=== PATIENT | female | born 1970 | race Caucasian/White ===

== ENCOUNTER 2018-02-19 23:54 | Emergency (ER) | payer OTHER, SELFPAY ==
[2018-02-19 23:55] VITALS: BP 145/40; PULSE 105; RESP 22; TEMP 36.5; O2SAT 99; BMI 36.8
--- NOTE | 2018-02-20 00:43 | ED.DCSUM_ITS ---
- ER Visit Summary Date of Service: 02/20/18 Chief Complaint: [] Bite History of Present Illness: The patient is a 47 F think she was bit by a bug a couple days ago. She has redness soreness and swelling her right christianity. She developed lymph node swelling in front of her ear today. She has been using Benadryl with no relief. No previous abscesses or infection. She also states she has chronic asthma that has been acting up using her inhaler today. Physical Examination: Vital signs reviewed General: Well-nourished well-developed Head: Normocephalic atraumatic Eyes: Pupils equal round and reactive to light extraocular movements intact ENT: TMs clear no hemotympanum no trauma Neck: Nontender full range of motion Cardiovascular: Regular rate rhythm no murmurs normal S1-S2 Respiratory: No distress very wheezes bilateral Abdomen: Soft nontender nondistended normal bowel sounds no masses Back: Nontender no CVA tenderness Extremities: Nontender active range of motion ?4 extremities no trauma Skin: Zoroastrian has a 1 x 1 cm dime size cellulitis with a central pustule. Neuro alert oriented cranial nerves II through XII intact normal strength sensation reflexes Test Results: [] Emergency Department Course and Treatment: [] The pustule was broken open easily. Given oral Bactrim is unclear if she got bit by something. This should cover however. Also given a breathing treatment for her asthma. I will give Her prescription for outpatient prednisone but she will start after her infection gets better Treatment Plan: [] Disposition: [] Impression: [] Right-sided facial wound with infection cellulitis Asthma exacerbation This note was generated with [employer] dictation software. It may contain incorrect words, spelling, and punctuation that were not noted in review of the chart prior to signing ED Disposition - Plan for ED Patient: Chief Complaint: Bite Referrals: Quentin Jasso MD [Primary Care Provider] -
[2018-02-20] MEDS: Ipratropium/Albuterol Sulfate 3 ML AMPUL.NEB INHALATION (00:51)
[2018-02-20 00:52] VITALS: PULSE 82; RESP 18; O2SAT 94
[2018-02-20] MEDS: Smz/Tmp Ds Tablet 1 TABLET PO (00:55)
--- NOTE | 2018-02-20 01:19 | ED.DEP ---
ED Disposition - Plan for ED Patient: Disposition: Home or Assisted Living Chief Complaint: Bite Instructions: ED Bite Sting Insect Gen Allergic React, Understanding Asthma Prescriptions: Prednisone [Deltasone] 40 mg PO DAILY #10 tab Smz/Tmp Ds [Bactrim Ds] 1 tab PO BID #14 tab Referrals: Quentin Jasso MD [Primary Care Provider] -
== END 2018-02-20 01:31 | disposition home or self-care (01) ==
PROVIDERS: Emergency Provider Emergency Medicine; Family Provider Family Medicine; PCP Family Medicine
DX: S00.06XA Insect bite (nonvenomous) of scalp, initial encounter (principal); W57.XXXA Bitten or stung by nonvenomous insect and other nonvenomous arthropods, initial encounter; Y93.9 Activity, unspecified; Y92.9 Unspecified place or not applicable; L03.818 Cellulitis of other sites; B96.89 Other specified bacterial agents as the cause of diseases classified elsewhere; Z72.0 Tobacco use
CPT/HCPCS: 94640; 99283

== ENCOUNTER 2018-12-30 19:35 | Emergency (ER) | payer SELFPAY ==
[2018-12-30 19:36] VITALS: BP 128/82; PULSE 84; RESP 17; TEMP 36.6; O2SAT 97; BMI 31.9
--- NOTE | 2018-12-30 20:31 | ED.DCSUM_ITS ---
- ER Visit Summary Date of Service: 12/30/18 Chief Complaint: Nausea, vomiting and diarrhea History of Present Illness: The patient is a 48 F who presents for nausea and vomiting since yesterday and now diarrhea today. Patient states she is felt very fatigued and weak. She has had multiple episodes of vomiting since yesterday. Today she began having watery stool. She has mild chest discomfort associated with it. Last oral intake was potato chips today. Patient denies fever, urinary symptoms, or other complaints. She does have an abscess on her right breast that she would like evaluated and states it is been draining green pus. Physical Examination: Vital signs: afebrile, hemodynamically stable, no hypoxia on room air General: well nourished, well developed, in no distress Skin: warm, dry, no rash, no pallor, fluctuant purulent ovoid plaque on the right breast just lateral of midline, no involvement of the areola, surrounding erythema and induration HEENT: normocephalic and atraumatic; PERRL, EOMI, moist mucous membranes Cardiovascular: regular rate and rhythm without murmurs, no peripheral edema, 2+ pulses all distal extremities Respiratory: No increased work of breathing, lungs are clear to auscultation bilaterally, no rales, rhonchi or wheezing Abdominal: Abdomen is soft, nontender with normoactive bowel sounds, no guarding or rebound, no masses MSK: Moves all extremities, no deformities, normal strength Neuro: Awake and alert, oriented ?4. No facial droop, sensation and motor function intact and symmetric Test Results: Abnormal Lab Results 12/30/18 12/30/18 12/30/18 20:41 20:41 21:30 WBC 8.3 RBC 4.32 Hgb 14.1 Hct 42.6 MCV 98.6 MCH 32.6 H MCHC 33.1 RDW 12.7 RDW Differential 45.9 H Plt Count 297 MPV 10.6 Immature Gran % (Auto) 0.100 Neut % (Auto) 53.4 Lymph % (Auto) 35.3 [place] % (Auto) 6.6 Eos % (Auto) 4.1 Baso % (Auto) 0.5 Absolute Neuts (auto) 4.4 Absolute Lymphs (auto) 2.93 Total Counted Not Reportable Sodium 141 Potassium 3.4 L Chloride 110 H Carbon Dioxide 26.0 Anion Gap 5 BUN 17 Creatinine 0.72 Estim Creat Clear Calc 94.94 Est GFR (MDRD) Af Amer 113 Est GFR (MDRD) Non-Af 93 BUN/Creatinine Ratio 23.7 H Glucose 98 Calcium 8.2 L Total Bilirubin 0.30 AST 18 ALT 41 Alkaline Phosphatase 105 Total Protein 6.3 L Albumin 3.1 L Globulin 3.2 Albumin/Globulin Ratio 1.0 Lipase 96 Urine Color Yellow Urine Clarity Sl. Cloudy Urine pH 8.0 Ur Specific [place] 1.015 Urine Protein Negative Urine Glucose (UA) Normal Urine Ketones Negative Urine Occult Blood Negative Urine Nitrite Negative Urine Bilirubin Negative Urine Urobilinogen Normal Ur Leukocyte Esterase 25 H Urine RBC 0 SEEN Urine WBC 0-5 SEEN Ur Squamous Epith Cells 0-5 SEEN Amorphous Sediment 1+ PHOS Urine Bacteria 0 SEEN Urine Mucus 1+ Urine Test 12/30/18 22:30 WBC RBC Hgb Hct MCV MCH MCHC RDW RDW Differential Plt Count MPV Immature Gran % (Auto) Neut % (Auto) Lymph % (Auto) [place] % (Auto) Eos % (Auto) Baso % (Auto) Absolute Neuts (auto) Absolute Lymphs (auto) Total Counted Sodium Potassium Chloride Carbon Dioxide Anion Gap BUN Creatinine Estim Creat Clear Calc Est GFR (MDRD) Af Amer Est GFR (MDRD) Non-Af BUN/Creatinine Ratio Glucose Calcium Total Bilirubin AST ALT Alkaline Phosphatase Total Protein Albumin Globulin Albumin/Globulin Ratio Lipase Urine Color Urine Clarity Urine pH Ur Specific [place] Urine Protein Urine Glucose (UA) Urine Ketones Urine Occult Blood Urine Nitrite Urine Bilirubin Urine Urobilinogen Ur Leukocyte Esterase Urine RBC Urine WBC Ur Squamous Epith Cells Amorphous Sediment Urine Bacteria Urine Mucus Urine Test Negative Clinical Impression(s) from Imaging Studies Abdomen/Pelvis CT 12/30/18 22:14 IMPRESSION: 1. Contracted gallbladder. 2. An IUD is seen in the uterus. 3. The appendix appears normal. 4. There is no evidence of free intra-abdominal or intrapelvic air, fluid, or inflammatory process. Electronically Signed: Remi Encarnacion MD at 23:51 EDT , Service support , Medications Given Discontinued Medications Clindamycin HCl (Cleocin) 450 mg PO X1 ONE Stop: 12/31/18 00:04 Last Admin: 12/31/18 00:10 Dose: 450 mg Sodium Chloride () 1,000 mls @ 1,000 mls/hr IV .Q1H ONE Stop: 12/30/18 21:27 Last Admin: 12/30/18 20:44 Dose: 1,000 mls/hr Ketorolac Tromethamine (Toradol) 15 mg IV X1 ONE Stop: 12/30/18 20:29 Last Admin: 12/30/18 20:44 Dose: 15 mg Lidocaine HCl (Lidocaine Hcl 1% Mdv) 0 ml INFILT X1 ONE Stop: 12/30/18 20:30 Metoclopramide HCl (Reglan) 10 mg IV X1 ONE Stop: 12/30/18 22:15 Last Admin: 12/30/18 22:28 Dose: 10 mg Ondansetron HCl (Zofran) 4 mg IV X1 ONE Stop: 12/30/18 20:29 Last Admin: 12/30/18 20:44 Dose: 4 mg Emergency Department Course and Treatment: Patient was given IV fluids, Zofran and Toradol for symptom medic relief. Basic labs were performed to look for any significant electrolyte derangements or dehydration. Labs were unremarkable for any leukocytosis, renal derangement, hepatic derangements or urine infection. Patient was reevaluated and was still complaining of significant discomfort and had abdominal tenderness, thus a CT of the abdomen pelvis was performed that showed no acute process. Patient was feeling better after further observation. An incision and drainage was performed of the right breast abscess. The area was cleansed with Betadine. It was infiltrated with 2 cc of 1% lidocaine. Good anesthesia was obtained. An 11 blade was used to make a stab incision through the area of maximal fluctuance. The escharotic scab over the fluctuant cavity was also removed. Thick pus was drained and loculations were broken up with curved hemostats. Patient tolerated the procedure well. Because she has the surrounding cellulitic changes, she was started on clindamycin for coverage. Patient was also given prescription for Diflucan in case she develops a yeast infection, as she is sensitive to antibiotics. Patient was discharged home in improved condition. Treatment Plan: [] Disposition: [] Impression: Acute gastroenteritis, abscess with cellulitis of the right breast, incision and drainage This note was generated with [employer] software. It may contain incorrect words, spelling, and punctuation that were not noted in review of the chart prior to signing ED Disposition - Plan for ED Patient: Disposition: Home or Assisted Living Instructions: ED Abscess IandD, ED Food Poison Or Gastroenteritis Prescriptions: Fluconazole [Diflucan] 150 mg PO X1 #2 tab RX: Clindamycin [Cleocin] 450 mg PO TID #90 cap Referrals: Quentin Jasso MD [Primary Care Provider] - 3-5 Days if not improving Additional Instructions: Take your Zofran as needed for nausea. Please drink plenty of fluids to stay hydrated. For your skin abscess and infection, please take the antibiotic 3 times daily as prescribed. You may use the Diflucan if you develop a yeast infection. Please follow-up with your doctor for another evaluation if you continue to have the abdominal pain, vomiting and diarrhea. Please also follow-up with your doctor for reevaluation of your recurring skin abscesses. If you have any worsening of your condition or any new concerning symptoms, please return immediately to the emergency department for another evaluation.
[2018-12-30] MEDS: Ondansetron 4 MG/2 ML Vial IV (20:44)
[2018-12-30] MEDS: Ketorolac 30 MG/ML Syringe 15 MG IV (20:44)
[2018-12-30] MEDS: 0.9% Normal Saline 1,000 ML 1000 ML IV (20:44)
[2018-12-30 20:56] LABS: Absolute Lymphocyte Count 2.93 X10^3/ul (0.83-4.51); Absolute Neutrophil Count 4.4 X10^3/uL (2.0-7.7); Basophil# 0.04 X10^3/uL; Basophil% 0.5 % (0-1); Eosinophil# 0.34 X10^3/uL; Eosinophils% 4.1 % (0-5); Hematocrit 42.6 % (37-47); Hemoglobin 14.1 g/dl (12.0-15.0); Lymphocyte # 2.93 X10^3/ul (4.0); Lymphocyte % 35.3 % (19-41); Mean Corp Hgb Conc 33.1 g/gl (32-36); Mean Corpuscular Hgb 32.6 pg (27.0-32.0); Mean Corpuscular Volume 98.6 fL (81-99); Mean Platelet Vol. 10.6 fl (6.2-12.0); Monocyte# 0.55 X10^3/uL; Monocyte% 6.6 % (0-10); Neutrophil # 4.44 X10^3/uL (2.7-7.7); Neutrophil % 53.4 % (47-70); Platelet Count 297 K/mm3 (150-450); RBC Distribution Width CV 12.7 % (11.6-14.6); RBC Distribution Width SD 45.9 fl (35.1-43.9); Red Blood Count 4.32 M/mm3 (4.2-5.4); White Blood Count 8.3 K/mm3 (4.4-11.0)
[2018-12-30 21:05] LABS: POSITIVE COUNT NO; POSITIVE DIFFERENTIAL NO; POSITIVE MORPHOLOGY NO
[2018-12-30 21:14] LABS: AST(SGOT) 18 U/L (15-37); Alanine Aminotransfer ALT/SGPT 41 U/L (13-56); Albumin, Serum 3.1 g/dL (3.2-5.0); Alkaline Phosphatase 105 U/L (45-117); Anion Gap 5 (5-15); BUN 17 mg/dL (7-18); BUN/Creat Ratio 23.7 RATIO (10-20); Calcium,Total 8.2 mg/dL (8.5-10.1); Chloride 110 mmol/L (98-107); Creatinine, Serum 0.72 mg/dL (0.55-1.02); EST Glomerular Filtration Rate 93 mL/min (>60); Est Glom Filt Rate - Afr Amer 113 mL/min (>60); Estimated Creatinine Clearance 94.94 ml/min; Globulin 3.2 g/dL (2.2-4.2); Glucose 98 mg/dL (74-106); Lipase 96 U/L (73-393); Potassium 3.4 mmol/L (3.5-5.1); Protein, Total 6.3 g/dL (6.4-8.2); Sodium Level 141 mmol/L (136-145)
[2018-12-30 21:38] LABS: Bacteria 0 SEEN /hpf (None Seen); Red Blood Cells-Urine 0 SEEN /hpf (0-5)
[2018-12-30 21:45] LABS: Color, Urine Yellow (Yellow); Glucose, Dipstick Normal (Normal); Ketone-Dipstick Negative (Negative); Leukocyte Esterase-Dipstick 25 /ul (Negative); Nitrite-Dipstick Negative (Negative); Occult Blood-Urine Negative /ul (Negative); Protein-Dipstick Negative (Negative); Specific Gravity, Urine 1.015 (1.002-1.030); Urine Bilirubin Dipstick Negative (Negative); Urine Clarity Sl. Cloudy (Clear); Urine Urobilinogen Normal (Normal)
[2018-12-30 21:51] LABS: Amorphous Sediment 1+ PHOS; Mucous, Urine 1+ /hpf (<or=2+); Squamous Epithelial Cells - UA 0-5 SEEN /hpf (5-10); White Blood Cells 0-5 SEEN /hpf (0-5)
--- NOTE | 2018-12-30 22:14 | CT_ITS ---
STUDY: CT ABDOMEN AND PELVIS WITH CONTRAST REASON FOR EXAM: Female, 48 years old. Nausea vomiting and diarrhea RADIATION DOSAGE (If Supplied By Facility): CTDIvol = ( 23.38 ) mGy, DLP = ( 1364.15 ) mGycm TECHNIQUE: Transaxial images were obtained from the dome of the diaphragm to the symphysis pubis without oral contrast. 100ML IV Isovue 300 was administered. Sagittal and coronal images were reconstructed. Individualized dose optimization techniques were used for this CT. COMPARISON: Prior study of 09/22/2015 FINDINGS: The visualized lung bases are unremarkable. The visualized portions of the heart are within normal limits. Normal liver. The gallbladder is contracted. Normal spleen. Normal pancreas. Normal bilateral adrenal glands. Normal right kidney. Normal left kidney. Normal visualized stomach. Normal small intestine. Normal colon. The appendix is visualized and appears normal. There are several small calcified plaques of the abdominal aorta. Normal inferior vena cava. Normal retroperitoneum. Normal urinary bladder. An IUD is seen in the uterus. The adnexal structures are unremarkable. Normal abdominal wall. There is diffuse endplate spondylosis of the visualized lower thoracic spine. CT/Abdomen/Pelvis W IV Cont ONLY IMPRESSION: 1. Contracted gallbladder. 2. An IUD is seen in the uterus. 3. The appendix appears normal. 4. There is no evidence of free intra-abdominal or intrapelvic air, fluid, or inflammatory process. Electronically Signed: Remi Encarnacion MD at 23:51 EDT , Service support ,
[2018-12-30] MEDS: Metoclopramide 10 MG/2 ML Vial IV (22:28)
[2018-12-30 22:33] VITALS: BP 124/83; PULSE 64; RESP 16; O2SAT 96
[2018-12-30 22:43] LABS: Internal QC Validated? YES +Cl - CLEAR BKGD; Pregnancy, Urine Negative Negative
[2018-12-31] MEDS: Clindamycin HCl 150 MG Capsule 450 MG PO (00:10)
[2018-12-31 00:14] VITALS: RESP 16
== END 2018-12-31 00:14 | disposition home or self-care (01) ==
PROVIDERS: Emergency Provider Emergency Medicine; Family Provider Family Medicine; PCP Family Medicine
DX: K52.9 Noninfective gastroenteritis and colitis, unspecified (principal); N61.1 Abscess of the breast and nipple; Z72.0 Tobacco use
CPT/HCPCS: 10060; 74177; 80053; 81001; 81025; 83690; 85025; 96374; 96375; 99284; J7030; Q9967; A4216; J2405

== ENCOUNTER 2019-05-01 09:39 | Emergency (ER) | payer SELFPAY ==
[2019-05-01 09:41] VITALS: BP 116/70; PULSE 94; RESP 17; TEMP 36.6; O2SAT 97; BMI 32.1
--- NOTE | 2019-05-01 09:48 | CT_ITS ---
STUDY: CT ABDOMEN AND PELVIS WITHOUT CONTRAST REASON FOR EXAM: Female, 48 years old. Left lower quadrant pain. History of prior left oophorectomy. RADIATION DOSAGE (If Supplied By Facility): CTDIvol = ( 18.82 ) mGy, DLP = ( 987.33 ) mGycm TECHNIQUE: Transaxial images were obtained from the dome of the diaphragm to the symphysis pubis without oral contrast, and without intravenous contrast. Sagittal and coronal images were reconstructed. Individualized dose optimization techniques were used for this CT. COMPARISON: Comparison is made with prior study dated December 30, 2018. FINDINGS: The visualized lung bases are unremarkable. The visualized portions of the heart are within normal limits. Normal liver. Normal gallbladder and extrahepatic biliary system. Normal spleen. Normal pancreas. Normal bilateral adrenal glands. Normal right kidney. Normal left kidney. Normal visualized stomach. Normal small intestine. Normal colon. The appendix is visualized and appears normal. There is scattered atherosclerotic calcification of the abdominal aorta, without a demonstrated aneurysm. Normal inferior vena cava. There is borderline retroperitoneal lymphadenopathy with enlarged nodes no greater than 10mm in the short axis diameter. Normal urinary bladder. Are not as directed is seen within the endometrium. There is a 1.7 cm follicle in the right ovary. Normal abdominal wall. Normal osseous structures. CT/Abdomen/Pelvis without Cont IMPRESSION: Small follicle in the right ovary. IUD is seen within the uterus. Electronically Signed: Lucio Campos, at 11:13 EDT , Service support ,
[2019-05-01] MEDS: Morphine 4 MG/ML Syringe IV (10:11)
[2019-05-01] MEDS: Ondansetron 4 MG/2 ML Vial IV (10:11)
[2019-05-01] MEDS: 0.9% Normal Saline 1,000 ML 125 ML IV (10:11)
[2019-05-01 10:12] LABS: Absolute Lymphocyte Count 2.71 X10^3/uL (0.83-4.51); Absolute Neutrophil Count 5.1 X10^3/uL (2.0-7.7); Basophil# 0.05 X10^3/uL; Basophil% 0.6 % (0-1); Eosinophil# 0.41 X10^3/uL; Eosinophils% 4.6 % (0-5); Hematocrit 44.3 % (37-47); Hemoglobin 15.1 g/dL (12.0-15.0); Lymphocyte # 2.71 X10^3/ul (4.0); Lymphocyte % 30.6 % (19-41); Mean Corp Hgb Conc 34.1 g/dL (32-36); Mean Corpuscular Hgb 33.2 pg (27.0-32.0); Mean Corpuscular Volume 97.4 fL (81-99); Monocyte# 0.56 X10^3/uL; Monocyte% 6.3 % (0-10); NRBC Flagged by Analyzer 0 % (0-5); Neutrophil # 5.09 X10^3/uL (2.7-7.7); Neutrophil % 57.4 % (47-70); Platelet Count 337 K/mm3 (150-450); RBC Distribution Width CV 12.5 % (11.6-14.6); RBC Distribution Width SD 44.5 fl (35.1-43.9); Red Blood Count 4.55 M/mm3 (4.2-5.4); White Blood Count 8.9 K/mm3 (4.4-11.0)
[2019-05-01 10:17] LABS: Internal QC Validated? YES +Cl - CLEAR BKGD; Pregnancy, Serum, hCG Quali. NEGATIVE Negative
[2019-05-01 10:31] LABS: ALB/GLOB Ratio 0.9 RATIO (0.9-2.4); AST(SGOT) 13 U/L (15-37); Alanine Aminotransfer ALT/SGPT 30 U/L (13-56); Albumin, Serum 3.2 g/dL (3.2-5.0); Alkaline Phosphatase 107 U/L (45-117); Anion Gap 8 (5-15); BUN 15 mg/dL (7-18); BUN/Creat Ratio 18.9 RATIO (10-20); Calcium,Total 8.5 mg/dL (8.5-10.1); Chloride 108 mmol/L (98-107); EST Glomerular Filtration Rate 83 mL/min (>60); Est Glom Filt Rate - Afr Amer 100 mL/min (>60); Estimated Creatinine Clearance 85.45 ml/min; Globulin 3.6 g/dL (2.2-4.2); Glucose 126 mg/dL (74-106); Potassium 3.8 mmol/L (3.5-5.1); Protein, Total 6.8 g/dL (6.4-8.2); Sodium Level 141 mmol/L (136-145)
[2019-05-01 10:43] LABS: Lactic Acid 2.2 mmol/L (0.4-2.0)
[2019-05-01 11:27] VITALS: BP 121/73; PULSE 63; PULSE 65; RESP 16; TEMP 36.8; O2SAT 95
[2019-05-01 11:36] LABS: Bacteria 0 SEEN /hpf (None Seen); Mucous, Urine 0 SEEN /hpf (<or=2+); Red Blood Cells-Urine 0 SEEN /hpf (0-5); White Blood Cells 0 SEEN /hpf (0-5)
[2019-05-01 11:44] LABS: Color, Urine Yellow (Yellow); Glucose, Dipstick Normal (Normal); Ketone-Dipstick Negative (Negative); Leukocyte Esterase-Dipstick Negative /ul (Negative); Nitrite-Dipstick Negative (Negative); Occult Blood-Urine Negative /ul (Negative); Protein-Dipstick Negative (Negative); Specific Gravity, Urine 1.015 (1.002-1.030); Urine Bilirubin Dipstick Negative (Negative); Urine Clarity Clear (Clear); Urine Urobilinogen Normal (Normal)
[2019-05-01 11:45] LABS: Squamous Epithelial Cells - UA 0-5 SEEN /hpf (5-10)
--- NOTE | 2019-05-01 12:16 | ED.VISSUMM ---
- ER Visit Summary Date of Service: 05/01/19 Chief Complaint: [Abdominal pain] History of Present Illness: The patient is a 48 F [[place] to the emergency department complaint of abdominal pain that started 2 days ago. Patient states the pain can came on gradually and describes it as left lower quadrant. She is had some mild nausea but no vomiting. She denies any diarrhea. She denies any blood in her stool or black tarry stool. Pain is been continuous. She denies urinary symptoms. She is never had pain like this before. Patient not having any menstrual periods currently. Patient does have an IUD. Patient has had a left oophorectomy.] Physical Examination: [HEENT-PERRLA, EOMI. Cranial nerves II through XII grossly intact. TMs clear. Mucous membranes moist. No adenopathy. Cardiovascular-regular rate and rhythm without murmur or ectopy Lungs-clear to auscultation, chest wall stable without crepitus or subcu emphysema Abdomen-normoactive bowel sounds, soft. Patient has tenderness over left lower quadrant with some guarding. There is no rebound, rigidity, or perineal signs. No CVA tenderness. Extremities-intact ?4, normal range of motion, normal pulses, atraumatic] Test Results: [CBC with differential showing of 8.9, hemoglobin 15, hematocrit 44, platelets 337. Chemistries unremarkable. LFTs were normal. Urinalysis was normal. Lactate was 2.2. hCG was negative. CT scan of the abdomen pelvis without contrast showed nothing acute.] Emergency Department Course and Treatment: [She was medicated with morphine and Zofran and she had good pain relief with that.] Treatment Plan: [Will be given a prescription for few [place] for pain as the etiology of her pain is unclear. Patient advised to follow-up with her primary care physician within the next 3 to 5 days. Patient advised to return if fever, worsening pain, vomiting, bloody stools, or conditions worsen anyway.] Disposition: [Discharged home in stable condition] Impression: [Abdominal pain-etiology uncertain] This note was generated with [employer] software. It may contain incorrect words, spelling, and punctuation that were not noted in review of the chart prior to signing ED Disposition - Plan for ED Patient: Referrals: Quentin Jasso MD [Primary Care Provider] -
--- NOTE | 2019-05-01 12:19 | DCINST.ED_ITS ---
ED Disposition - Plan for ED Patient: Instructions: ABDOMINAL PAIN, Unknown Cause, (Female) Prescriptions: Hydrocodone Bitart/Apap 5-325 [[place] 5MG-325MG] 1 tab PO Q4H PRN PRN 2 Days #10 tab PRN Reason: Pain Prescription Printed Referrals: Quentin Jasso MD [Primary Care Provider] - 3-5 Days
[2019-05-01 12:33] VITALS: BP 118/75; PULSE 65; RESP 16; O2SAT 97
--- NOTE | 2019-05-01 12:34 | ED.RN ---
IV DC'ED, CATHETER INTACT, SMALL GAUZE DRESSING PLACED. DISCHARGE INSTRUCTIONS GIVEN TO AND REVIEWED WITH PATIENT, PATIENT DENIES QUESTIONS OR CONCERNS AND VOICES UNDERSTANDING OF DISCHARGE INSTRUCTIONS. PT AMBULATES OUT OF ROOM WITHOUT DIFFICULTY.
[2019-05-01 14:04] LABS: Reflex Lactate? Y
== END 2019-05-01 12:35 | disposition home or self-care (01) ==
LOC: ED 09:53
PROVIDERS: Emergency Provider Emergency Medicine; Family Provider Family Medicine; PCP Family Medicine
DX: R10.32 Left lower quadrant pain (principal); R11.0 Nausea; Z90.721 Acquired absence of ovaries, unilateral; Z72.0 Tobacco use
CPT/HCPCS: 74176; 80053; 81001; 83605; 84703; 85025; 96361; 96374; 96375; 99283; J7030; J2405

== ENCOUNTER 2020-03-09 01:29 | Emergency (ER) | payer SELFPAY ==
[2020-03-09 01:30] VITALS: BP 148/87; PULSE 99; RESP 20; TEMP 36.5; O2SAT 97; BMI 37.5
[2020-03-09 01:35] VITALS: O2SAT 97
--- NOTE | 2020-03-09 01:40 | RAD_ITS ---
STUDY: X-RAY CHEST REASON FOR EXAM: Female, 49 years old. Sob TECHNIQUE: Single AP portable view of the chest. COMPARISON: 05/05/2017 FINDINGS: There are superimposed monitor leads. Stable areas of hyperinflation. There is no focal parenchymal abnormality. There is no demonstrated pleural abnormality. Normal size heart. Normal mediastinum and sandhya. Normal visualized pulmonary arteries. Normal visualized aortic arch and descending thoracic aorta. There are diffuse degenerative changes of the visualized thoracic spine. Normal visualized ribs, clavicles, and shoulders. There is no demonstrated abnormality of the visualized soft tissue structures of the upper abdomen. RAD/Chest 1 View (Portable) IMPRESSION: No acute cardiopulmonary disease. No significant interval change. Electronically Signed: Shelby Ernst MD at 2:44 EDT , Service support ,
--- NOTE | 2020-03-09 01:42 | ED.DCSUM_ITS ---
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 She has not been tested thus far. She pre sents during the national coronavirus emergency declaration. She did not have an inhaler with her and has had no treatment and feels tight. She feels not so much like this is asthma, as she does like there is stuff in her chest to get out. - Past Medical History (1) Asthma Status: Chronic Past Medical History - Allergies and Home Meds Allergies/Adverse Reactions: Allergies No Known Allergies Allergy (Verified 03/09/20 01:35) Primary Care Physician: Quentin Jasso MD [Primary Care Provider] - Lives: Spouse/ Significant Other Smoking Status: Current every day smoker Review of Systems General: Reports: Malaise. Denies: Chills, Fever, Sweats Eyes: Denies: Visual changes - bilaterally, Diplopia ENT: Denies: Rhinorrhea, Sore throat Cardiovascular: Reports: Chest pain. Denies: Palpitations Respiratory: Reports: Dyspnea, Cough. Denies: Sputum Gastrointestinal: Denies: Abdominal pain, Nausea, Vomiting, Diarrhea, Melena, Hematochezia Genitourinary: Denies: Dysuria, Hematuria, Frequency Musculoskeletal: Denies: Back pain, Swelling, Extremity Pain Skin: Denies: Rash, Wounds Neurological: Denies: Headache, Weakness, Numbness Physical Exam Vital Signs/Narrative: Vital Signs Temp Pulse Resp BP Pulse Ox 03/09/20 01:30 97.7 F L 99 20 H 148/87 H 97 Inital Vital Signs reviewed: Yes General: Well nourished, Well developed, Acute Distress Head: Normocephalic, Atraumatic Eyes: Perrl, EOMI ENT: Moist mucous membranes, No rhinorrhea Neck: Supple, Nontender Cardiovascular: Regular rate, Regular rhythm, No murmurs Respiratory: Chest nontender, Wheezing - slight. Negative for: Rales, Rhonchi Abdomen: Soft, Nontender, Nondistended, Normal bowel sounds Back: Nontender, Normal Inspection Extremities: Nontender, No edema. Negative for: Calf Tenderness Skin: Normal color, No rash, No Trauma Neurological: Alert, Oriented x3, Cranial nerves II-XII grossly intact, Normal Strength, Normal Sensation Psychological: Agitated - seems hyperactive, increased psychomotor activity Diagnostic/Tx/Re-eval Impressions Chest X-Ray 03/09/20 01:40 IMPRESSION: No acute cardiopulmonary disease. No significant interval change. Electronically Signed: Shelby Ernst MD at 2:44 EDT , Service support , 03/09/20 01:40 Chest 1 View (Portable) [RAD] Stat Laboratory Results 03/09/20 03/09/20 03/09/20 02:10 02:10 02:10 WBC 11.3 H RBC 4.03 L Hgb 13.1 Hct 40.5 MCV 100.5 H MCH 32.5 H MCHC 32.3 RDW Std Deviation 46.6 H RDW Coeff of [place] 12.6 Plt Count 320 MPV 10.4 Immature Gran % (Auto) 0.300 Neut % (Auto) 61.9 Lymph % (Auto) 25.2 [place] % (Auto) 7.1 Eos % (Auto) 5.0 Baso % (Auto) 0.5 Absolute Neuts (auto) 7.0 Absolute Lymphs (auto) 2.86 Nucleated RBC % 0 D-Dimer Quant (PE/DVT) 0.30 Sodium 143 Potassium 3.5 Chloride 112 H Carbon Dioxide 25.0 Anion Gap 6 BUN 21 H Creatinine 1.04 H Estim Creat Clear Calc 65.03 Est GFR (MDRD) Af Amer 73 Est GFR (MDRD) Non-Af 60 BUN/Creatinine Ratio 20.2 H Glucose 107 H Lactic Acid Calcium 9.0 Total Bilirubin 0.60 AST 18 ALT 43 Alkaline Phosphatase 107 Troponin I < 0.015 Total Protein 7.1 Albumin 3.6 Globulin 3.5 Albumin/Globulin Ratio 1.0 03/09/20 02:10 WBC RBC Hgb Hct MCV MCH MCHC RDW Std Deviation RDW Coeff of [place] Plt Count MPV Immature Gran % (Auto) Neut % (Auto) Lymph % (Auto) [place] % (Auto) Eos % (Auto) Baso % (Auto) Absolute Neuts (auto) Absolute Lymphs (auto) Nucleated RBC % D-Dimer Quant (PE/DVT) Sodium Potassium Chloride Carbon Dioxide Anion Gap BUN Creatinine Estim Creat Clear Calc Est GFR (MDRD) Af Amer Est GFR (MDRD) Non-Af BUN/Creatinine Ratio Glucose Lactic Acid 1.3 Calcium Total Bilirubin AST ALT Alkaline Phosphatase Troponin I Total Protein Albumin Globulin Albumin/Globulin Ratio Treatment - Dyspnea: Albuterol, Atrovent, Steroid Repeat Evaluation: Improved - Medical Decision Making Patient feeling much better after nebulizer treatments. Her work-up is unremarkable. 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 At 5 hours into her emergency department stay, we called the lab to determine when the test was going to be back, and they stated they were not running it, it was going to be sent to the state to be run. I do not think she needs to be admitted, therefore she is to quarantine and not go back to work until the test results return for her. She understands this, and therefore I will place her on prednisone to help her asthma. ED Disposition - Plan for ED Patient: Disposition: Home or Assisted Living Diagnosis: Acute asthma exacerbation, Asthmatic bronchitis Instructions: ED Bronchitis Asthmatic Prescriptions: Prednisone [Deltasone] 40 mg PO DAILY #10 tab Transmission Status: Pending to [facility] Albuterol Inhaler [Ventolin Hfa] 1 - 2 puff INHALATION Q4H PRN PRN #1 inhaler PRN Reason: Wheezing Transmission Status: Pending to [facility] Referrals: Quentin Jasso MD [Primary Care Provider] - 3-5 Days if not improving
[2020-03-09 02:29] LABS: Absolute Lymphocyte Count 2.86 X10^3/uL (0.83-4.51); Basophil# 0.06 X10^3/uL; Basophil% 0.5 % (0-1); Eosinophil# 0.57 X10^3/uL; Hematocrit 40.5 % (37-47); Hemoglobin 13.1 g/dL (12.0-15.0); Lymphocyte # 2.86 X10^3/ul (4.0); Lymphocyte % 25.2 % (19-41); Mean Corp Hgb Conc 32.3 g/dL (32-36); Mean Corpuscular Hgb 32.5 pg (27.0-32.0); Mean Corpuscular Volume 100.5 fL (81-99); Mean Platelet Vol. 10.4 fl (6.2-12.0); Monocyte% 7.1 % (0-10); NRBC Flagged by Analyzer 0 % (0-5); Neutrophil # 7.01 X10^3/uL (2.7-7.7); Neutrophil % 61.9 % (47-70); Platelet Count 320 K/mm3 (150-450); RBC Distribution Width CV 12.6 % (11.6-14.6); RBC Distribution Width SD 46.6 fl (35.1-43.9); Red Blood Count 4.03 M/mm3 (4.2-5.4); White Blood Count 11.3 K/mm3 (4.4-11.0)
[2020-03-09 02:49] LABS: AST(SGOT) 18 U/L (15-37); Alanine Aminotransfer ALT/SGPT 43 U/L (13-56); Albumin, Serum 3.6 g/dL (3.2-5.0); Alkaline Phosphatase 107 U/L (45-117); Anion Gap 6 (5-15); BUN 21 mg/dL (7-18); BUN/Creat Ratio 20.2 RATIO (10-20); Chloride 112 mmol/L (98-107); Creatinine, Serum 1.04 mg/dL (0.55-1.02); EST Glomerular Filtration Rate 60 mL/min (>60); Est Glom Filt Rate - Afr Amer 73 mL/min (>60); Estimated Creatinine Clearance 65.03 ml/min; Globulin 3.5 g/dL (2.2-4.2); Glucose 107 mg/dL (74-106); Potassium 3.5 mmol/L (3.5-5.1); Protein, Total 7.1 g/dL (6.4-8.2); Sodium Level 143 mmol/L (136-145)
[2020-03-09 03:20] LABS: Lactic Acid 1.3 mmol/L (0.4-1.9)
[2020-03-09 03:29] VITALS: BP 132/71; PULSE 94; RESP 18
[2020-03-09 05:11] VITALS: BP 127/80; PULSE 88; RESP 13; TEMP 36.6; O2SAT 98
[2020-03-09 05:59] VITALS: PULSE 74; RESP 17
[2020-03-09 06:52] VITALS: BP 111/68; PULSE 88; RESP 18; O2SAT 99
[2020-03-09] MEDS: MethylPREDNISolone 125 MG/2 ML Vial IV (06:52)
[2020-03-09 08:56] LABS: Probe Check PASS; Specimen Processing Control PASS
--- OUTSIDE RECORDS SUMMARY | 2020-07-20 09:20 | XMS RPT_ITS | CCD ---
:1970 External Reference #:[id number] Author Organization [facility] Care Team Providers Name Role Phone Belia QUIÑONES Unavailable Unavailable Myranda WINSTON Unavailable Unavailable Myranda WINSTON Unavailable Unavailable Myranda WINSTON Unavailable Unavailable Myranda WINSTON Unavailable Unavailable Myranda WINSTON Unavailable Unavailable MD CORY Admitting Unavailable MD CORY Attending Unavailable MD CORY Primary Care Unavailable APOLONIA WINSTON Consulting Unavailable JARED WINSTON-Shruthi Referring Unavailable PROVIDER Consulting Unavailable OLIVIER C Admitting Unavailable OLIVIER C Attending Unavailable APOLONIA WINSTON Referring Unavailable Shruthi AGUAYO Primary Care Unavailable APOLONIA WINSTON Consulting Unavailable PROVIDER Consulting Unavailable Martha PETER Admitting Unavailable Martha PETER Attending Unavailable JARED WINSTON-Shruthi Referring Unavailable Martha PETER Primary Care Unavailable JARED WINSTON-Shruthi Consulting Unavailable PROVIDER Consulting Unavailable MD CORY Admitting Unavailable MD CORY Attending Unavailable MD CORY Primary Care Unavailable APOLONIA WINSTON Consulting Unavailable JARED WINSTON-Shruthi Referring Unavailable PROVIDER Consulting Unavailable Allergies Reported Allergen Reaction(s) Severity Date of Onset Location 11/03/17 (+) MRSA SCREEN Unknown [facility] Translations: [ 11/03/17 Hos pital Repository (+) MRSA SCREEN] 01/21/20 (+) MRSA SCREEN Unknown [facility] Translations: [ Hospit al Repository 01/21/20 (+) MRSA SCREEN NARES] 02/13/2019 (+) MRSA Unknown [facility] Hospital Reposi tory Translations: [ 02/13/2019 (+) MRSA SCREEN NARES] 08/25/19 (+) MRSA WOUND Unknown [facility] Translations: [ 08/25/19 [facility] (+) MRSA WOUND] Problems Active Problems Category Problem Name Status Date Location Abdominal pain Unspecified abdominal Active 08-28-2019 - Frankie Fowler pain [facility] Hospit al (92052) Genitourinary symptoms Hematuria, unspecified Active 04-17-20 18 - [facility] and ill-defined [facility] ( [place]) conditions (49631) Other non-traumatic Pain in right elbow Active 02-26-2020 - J oel Pomerene joint disorders [facility] pital (05371) Substance-related Nicotine dependence, Active 01-21-2020 - Bing el [place] disorders cigarettes, [facility] Hospit al uncomplicated (37986) Past or Other Problems Category Problem Name Status Date Location Urinary tract Urinary tract Completed 08-23-2019 - [facility] infections infection, site not [facility] specified (52544) Results Result Name Value Range Unit Interpretation Flag Date Location emergency report on 2020-03-15 EMERGENCY REPORT [facility] Normal 03-15 [facility] H ospital EMERGENCY ROOM REPORT ([id number]) NAME ACCOUNT SEX AGE ADMIT DISCHARGE PT MED. RECORD# NUMBER DATE DATE TYPE CHANNING HARDING [id number] F 49 02/26/20 02/26/20 3 K [id number] ROOM: ER DATE OF : 1970 DICTATING PHYSICIAN: Riddhi Guzman CHIEF COMPLAINT: Says her ri ght elbow has been hurting her for 3 months, and she says it comes down from her shoulder into her right ar m into her elbow area. HISTORY OF PRESENT ILLNESS: It is on the lateral aspect. No numbness, tingling, or weakness. She did not see he r family doctor for this yet. She denies any history of trauma. It has been exactly the same for 3 months. PAST MEDICAL HISTORY: See nursing notes. MEDICATIONS: See nursing notes. FAMILY HISTORY: Noncontributory. REVIEW OF SYSTEMS: Ten systems reviewed and present above in the HPI. PHYSICAL EXAMINATION: Genera l: She is awake, alert, nontoxic in no acute distress. She appears hyper-agitated a nd fidgety on examination and cannot sit still during the examination. Head: Normoceph alic and atraumatic. Pupils are equal and reactive to light bilaterally. Mucous me mbranes are moist. Trachea is midline. No midline, cervical, thoracic, or lumbosacral ten derness. She has full range of motion of the shoulder joint. She has pain and tenderness on the lateral aspect of the elbow, not the forearm, not the wrist. Radial, ulnar, axilla ry, and median nerve are intact. Good pulses and perfusion. Lungs: Clear to auscultation bilaterally without wheeze, rales, or rhonchi. Abdomen: Soft. No guarding, rebound, or rigidity. EMERGENCY DEPARTMENT COURSE AND TREATMENT: I discussed with her that this was likely tendinitis, but it could be a radiculopathy from her neck as well. There is no history of trauma. It has been going on for 3 months. DIAGNOSES: 1. Right elbow pain x3 month s, suspect tendinitis, cannot exclude radiculopathy. 2. Against medical advice. PLAN/DISPOSITION: I am going to start her on prednisone, antiinflammatories. She became very upset with this yelling and demanding that this was not tendinitis. I said that is what I feel like it is initially, and we need to treat it like that. We will have her Page 1 of 2 CHANNING HARDING Emergency Room Report CHANNING HARDING : 1970 follow up with a family doct or. If she does not improve, she needs an MRI of her neck. She starting acting very biz arre, very bizarre with the nursing staff, very agitated without really a cause and just kind of got up and walked out without any medications or discharge instructions AMA. Dictated By: Riddhi Guzman DO 03/13/20 10:19 JOB #: [id number] Transcribed By: am 03/13/20 17:06 Electronically signed by: E-Sign: RIDDHI GUZMAN MD 03/15/20 09:26 Page 2 of 2 CHANNING HARDING Emergency Room Report emergency report on 2020-02-28 EMERGENCY REPORT [facility] Normal 02-27 [facility] ospital EMERGENCY ROOM REPORT ([id number]) NAME ACCOUNT SEX AGE ADMIT DISCHARGE PT MED. RECORD# NUMBER DATE DATE TYPE CHANNING HARDING [id number] F 49 02/26/20 02/26/20 3 K [id number] ROOM: ER DATE OF : 1970 DICTATING PHYSICIAN: Riddhi Guzman CHIEF COMPLAINT: Pain in her elbow. HISTORY OF PRESENT ILLNESS: This is a 49-year-old righ t hand dominant female who states that her elbow bennett s been bothering her for 3 months, and now it is going down her arm and it feels swollen. She was seen and ev aluated here and never mentioned it and she has a norma sims doctor, which she never saw. She denies any known injury, numbness, tingling, weakness, and presents pushing her way through the door and very argumentative with the nurse. 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 I went over the history with h er, and she said it has been bothering her. She points to the lateral aspect of the elbow. She said the whole arm is swollen, and I do not visualize a swollen arm. She said it is fire hot red and infected. I also do not see anything red or infected. I do not see any o pen lesions or sores. She is worried about MRSA. There are no breaks in the skin. No fever, chills, or systemic complai nts. PAST MEDICAL HISTORY: See nursing notes. PAST SURGICAL HISTORY: See nursing notes. FAMILY HISTORY: Noncontributory. REVIEW OF SYSTEMS: Ten systems reviewed and present above in the HPI. PHYSICAL EXAMINATION: Vital signs: Blood pressure 138/99, pulse 100, respiratory rate 18, temperature 98.1, O 2 saturation 99% on room air. General: She is awake, alert, writhing around the bed, hol ding her elbow. Head: Normocephalic and atraumatic. Pupils are equal and reactiv e to light bilaterally. Full range of motion of the neck without any difficulty. No midline, cervical, thoracic, or lumbosacral tenderness. No bony tenderness with rotation of the shoulder, humerus. When I even begin to touch the lateral epicondyle, she scre ams out in pain consistent with what you would expect with tendinitis. There is no tend erness at the forearm. It is not red, hot, or swollen. There are good pulses and perfusion di stally. It is neurovascularly intact. No break in the skin. EMERGENCY DEPARTMENT COURSE AND TREATMENT: I am going to sta rt her on prednisone for tendinitis. I also told her I would order an outpatient duplex ultrasound to rule out DVT, and she thinks it is infected, so I told her I would put her on some antibiotics. She began [place] that this was bullshit and that she does not have Page 1 of 2 LONG, CHANNING K Emergency Room Report CHANNING HARDING : 1970 tendinitis, very argumentati ve, very uncomfortable with the nurse, and fidgeting back and forth in the room, and a s I was writing her stuff up she got up and walked out the door. DIAGNOSIS: Right elbow pain x3 months, suspect t endinitis, but cannot exclude radiculopathy. PLAN/DISPOSITION: The patient left without medical records. Dictated By: Riddhi Guzman DO 02/26/20 18:27 JOB #: [id number] Transcribed By: am 02/27/20 15:18 Electronically signed by: E-Sign: RIDDHI GUZMAN MD 02/28/20 13:36 Page 2 of 2 CHANNING HARDING Emergency Room Report emergency report on 2020-01-24 EMERGENCY REPORT [facility] Normal 01-23 [facility] ospital EMERGENCY ROOM REPORT ([id number]) NAME ACCOUNT SEX AGE ADMIT DISCHARGE PT MED. RECORD# NUMBER DATE DATE TYPE CHANNING HARDING [id number] F 49 01/21/20 01/21/20 3 K [id number] ROOM: ER DATE OF : 1970 DICTATING PHYSICIAN: Edison Aguayo CHIEF COMPLAINT: Abdominal pain. HISTORY OF PRESENT ILLNESS: The patient states that she has been having abdominal pain the last 3 da ys. It started fairly abruptly 3 days ago and has been with somewhat intermittent severi ty since. She has nausea but no vomiting. No fever or chills. It does not seem to be worse with activity. It does seem to be a little worse with eating. PAST MEDICAL HISTORY: Negative for signi ficant medical problems. She does have a history of asthma. She sta nate that she has not had pain like this previously. She has a history of MRSA infections. PAST SURGICAL HISTORY: She has had a number of previou s surgeries, including left oophorectomy and right knee surgery. 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 She does smoke. She drinks alcohol occasionally. REVIEW OF SYSTEMS: No recent injury or trauma. No cough, con gestion, or shortness of breath. PHYSICAL EXAMINATION: This i s a 49-year-old female who is alert and appropriate. She appears uncomfortable bu t not toxic. She is slightly heavy built. Her skin is pink, warm and dry. HEENT examinat ion is normal. Neck is supple. Lungs are clear. Cardiac examination is a regular rhy thm without any ectopy, murmurs, gallops or rubs. Abdomen is mildly obese but generall y soft. She does seem to have some tenderness to the left lower quadrant and left abdo men that radiates to the left flank, though she does not complain of left flank tende rness. There are no masses. No rebound tenderness. She moves her extremities approp riately. Good peripheral pulses. Good capillary refill. Vital signs: Temperature is 97.3, pulse 85, respirations 18, and blood pressure 182/98. Her oxygen saturation is 95%. DIAGNOSTIC DATA: The laboratories returned generally u nremarkable. She had a CBC with a white count of 11 ,200, normal differential, and normal H&H. CRP was 0.35. CMP was essentially all with in normal limits. Urinalysis really was quite unremarkable. It is quite concentrated with a specific gravity of 1.03 with 1-5 WBCs, no RBCs, and Page 1 of 2 CHANNING HARDING Emergency Room Report CHANNING HARDING : [address] KUB wa s negative for any ureteral calculi or acute abnormalities. EMERGENCY DEPARTMENT COURSE AND TREATMENT: An IV was placed. She was given a liter of IV flui ds, 0.5 mg of Dilaudid IV, 30 mg of Toradol IV, and 4 mg of Zofran IV. She did get mild to moderate improvement with that. A number of laboratory studies were obtained. I pro ceeded to get a CT KUB. She was given additional IV fluids and another dose of Dilaudid . The patient has abdominal pain of uncertain cause. It does not appear that there are any acute abnormalities. DIAGNOSIS: Abdominal pain of uncertain cause. PLAN/DISPOSITION: She was discharged wit h a prescription for a small number of Percocet as well as some Tor adol. She is to follow up with her family doctor in a day or two if no better, returning if symptoms worsen. Dictated By: Edison Aguayo MD 01/21/20 12:00 JOB #: [id number] Transcribed By: dagoberto 01/21/20 13:00 Electronically signed by: JAMES Aguayo M.D. 01/24/20 07:45 Page 2 of 2 CHANNING HARDING Emergency Room Report urinalysis on 01-20 Amorphous NONE Normal 01-21-2020 [facility] (79095) Comment: Performed By: #### [id number] ## ## [facility] [place],[address],[place] [address] Bacteria LM.HPF (Urine sed) 1+ Normal [facility] [#/Area] [facility] ( 20564) Comment: Performed By: #### [id number] ## ## [facility],[address] [place] [address] Bilirubin [Mass/Vol] NEG NORMAL: NEGATIVE mg/dL Normal [facility] ospital (49413) Comment: Performed By: #### [id number] ## ## [facility],[address] [facility] [address] Blood NEG NORMAL: NEGATIVE Normal 01-21-2020 [facility] (63502) Comment: Performed By: #### [id number] ## ## [facility],[address] [place] [address] Casts LM.LPF (Urine sed) NONE Normal 01-20 [facility] [#/Area] [facility] ( 04142) Comment: Performed By: #### [id number] ## ## [facility],[address] [place] [address] Clarity (U) clear NORMAL: CLEAR Normal 01-21-2020 [facility] (21993) Comment: Performed By: #### [id number] ## ## [facility],[address] [facility] [address] Color (U) ebenezer NORMAL: YELLOW Normal 01-21-2020 [facility] (69159) Comment: Performed By: #### [id number] ## ## [facility],[address] [place] [address] Crystals LM Nom (Urine sed) NONE Normal [facility] ( 24328) Comment: Performed By: #### [id number] ## ## [facility], [place],[address] [place] [address] Epi Cells OCC Normal 01-21-2020 [facility] (50016) Comment: Performed By: #### [id number] ## ## [facility] [place],[address] [place] [address] Glucose [Mass/Vol] NORM NORMAL: NORMAL Normal 2019 [facility] ( 42006) Comment: Performed By: #### [id number] ## ## [facility] [place],[address] [place] [address] Ketone NEG NORMAL: NEGATIVE Normal 01-21-2020 [facility] (32762) Comment: Performed By: #### [id number] ## ## [facility] [place],[address] [place] [address] Microscopic SEE BELOW Normal 01-21-[address] [facility] (32736) Comment: Result Comment: MICROSCOPIC Performed By: #### [id number] ## ## [facility] [place],[address] [place] [address] Mucous 1+ Normal 01-21-2020 [facility] (55410) Comment: Performed By: #### [id number] ## ## [facility] [place],[address] [place] [address] Nitrite Ql (U) NEG NORMAL: NEGATIVE Normal 01-21-20 [facility] ( 79103) Comment: Performed By: #### [id number] ## ## [facility] [place],[address] [place] [address]9965 pH (Bld) 5 NORMAL: 5.0-8.0 Normal 01-21-2020 [facility] (47501) Comment: Performed By: #### [id number] ## ## [facility] [place],[address] [place] [address] Protein (U) NEG NORMAL: NEGATIVE mg/dL Normal 01-21-2020 [facility] [Mass/Vol] [facility] (65837) Comment: Performed By: #### [id number] ## ## [facility],[address] [place] [address] Rbc NONE 0-3/hpf Normal 01-21-2020 [facility] (69313) Comment: Performed By: #### [id number] ## ## [facility],[address] [place] [address] Sp [place] 1.030 NORMAL: 1.010-1.030 Normal 0 [facility] ( 44190) Comment: Performed By: #### [id number] ## ## [facility],[address] [place], [place] [address] Specimen type Nom (Spec) UNSPECIFIED Normal [facility] ( 95535) Comment: Performed By: #### [id number] ## ## [facility],[address] [place], [place] [id number] Urobilinog NORM NORMAL: NORMAL Normal 01-21-2020 [facility] (87744) Comment: Performed By: #### [id number] ## ## [facility],[address] [place], [place] [id number] Wbc 1-5 0-5/hpf Normal 01-21-2020 [facility] (01217) Comment: Performed By: #### [id number] ## ## [facility],[address] [place], [place] [id number] WBC (Bld) [#/Vol] 25 NORMAL: NEGATIVE Abnormal 01-20 [facility] ( 20842) Comment: Performed By: #### [id number] ## ## [facility],[address] [place] [address] Yeast LM Ql (Urine sed) NONE Normal 2019 [facility] (30505) Comment: Performed By: #### [id number] ## ## [facility],[address] [place] [address] mrsa screen nares o n 2020-01-21 MRSA SCREEN NARES MRSA SCREEN Normal 01-21-2020 [facility] ospital CALLED TO/BY (84423) KITA/MICHAEL [id number] Methicillin resistant Staphylococcus aur eus is a major cause of nosocomial and life threatning infections. MRSA infections have been associated with high rates of mortality and morbidity. This test is used for the qualitative detection of nasal colonization of methic illin resistant Staphylococcus aureus (MRSA) to aid in the prevention and control of MRSA infections in health care settings. The test is performed on anterior nares specimens from patients and healthcare workers to screen for MRSA colonization. This test is not intended to diagnose MRSA infection nor to guide or monitor treatment of infectio n. Comment: Performed By: #### [id number] ## ## [facility],[address] [place] [address] kub (kidney stone protocol) on 2020-01-21 CT KUB (KIDNEY [facility] Normal 020 [facility] STONE PROTOCOL) [address] [address] ([address]) Patient: CHANNING HARDING Phone#: : 1970 Age: 49 Gender: F Pt. Type: ER Account: [id number] Location: [facility] Ordering: EDISON AGUAYO Exam Date: 01/21/2020/8:46 Family Phys: YENI WINSTON Charge Code: 528796 Physician: [place] Order #: [id number] DLP Dose#: 20.0 mGy PROCEDURE: CT ABDOMEN AND PELVIS WITHOUT CONTRAST COMPARISON: [facility], CT, ABDOMEN/PELVIS W CON, 08/28/2019, 6:00. [facility], CT, KUB W/O CON, 08/23/2019, 6:32. INDICATIONS: Abdominal Pain. TECHNIQUE: After obtaining t he patient's consent, CT images of the abdomen and pelvis were created without non-ionic intravenous contrast material. All CT scans at this facilit y use dose modulation, iterative reconstruction, and/or weight based dosing when appropriate to reduce radiation dos e to as low as reasonably achievable. IV CONTRAST: No IV contrast used,0ml TOTAL DOSE: 20.0 CTDIvol(mGy) FINDINGS: Evaluation the solid organs and soft tissues is limited in the absence of intravenous contrast. KIDNEYS: No nephrolithiasis or hydronephrosis. ADRENALS: Normal. No mass or enlargement. URINARY BLADDER: The urinary bladder is decompressed. LIVER: Unremarkable in contour. BILIARY: The gallbladder is present. PANCREAS: Normal. No lesion, fluid collection, d uctal dilatation, or atrophy. SPLEEN: Normal. No enlargement or focal lesion. AORTA/VASCULAR: No aortic an eurysm. There are scattered atherosclerotic calcifications of the aorta. RETROPERITONEUM: Limited tracey luation for adenopathy in the absence of contrast though none identified. BOWEL/MESENTERY: No bowel ob struction or dilatation. There is moderate stool burden throughout the colon. The appendix is unremarkable. ABDOMINAL WALL: Normal. No mass or hernia. PELVIC NODES: Normal. No adenopathy. Continued Report - Page 2 of 2 Patient: CHANNING HARDING Phone#: : 1970 Age: 49 Gender: F Pt. Type: ER Account: [id number] Location: 052 Ordering: EDISON AGUAYO Exam Date: 01/21/2020/8:46 Family Phys: YENI WINSTON Charge Code: [id number] Physician: [place] Order #: [id number] DLP Dose#: 20.0 mGy PELVIC ORGANS: The uterus is present and contains an IUD. There is the lesion in the right ovary, incompletely characterized on this exam. The ov rose measures 3.7 x 3.6 x 2.6 cm. The left ovary is stable in appearance. BONES: There are degenerative changes of the lower thoracic spine. LUNG BASES: Normal. No visible pulmonary or pleural disease. OTHER: Negative. CONCLUSION: 1. No nephrolithiasis or hydronephrosis. 2. Indeterminate lesion in t he right ovary. Given patient's age may represents a cyst though incompletely characterized on this exam. Dictated by: Tracey Enriquez MD on 01/21/2020 at 9:23 Approved by: Tracey Enriquez MD on 01/21/2020 at 9:23 cmp with egfr on 20 20-04-20 Age - Reported 49 years Normal 01-21-2020 [facility] (67602) Comment: Performed By: #### [id number] ## ## [facility] Hospi [facility],[address] [facility] [address] Albumin [Mass/Vol] 3.7 3.4 - 4.8 g/dL Normal 01-21-2020 [facility] ( 07944) Comment: Performed By: #### [id number] ## ## [facility] [place],[address] [facility] [address] Albumin/Globulin [Mass 1.3 0.9 - 1.6 {ratio} Normal [facility]] [facility] (44643) Comment: Performed By: #### [id number] ## ## [facility] [place],[address] [place] [address] ALK PHOS 95 38 - 126 U/L Normal 01-21-2020 [facility] (25302) Comment: Performed By: #### [id number] ## ## [facility] [place],[address] [place] [address] 31242 ALT/SGPT 18 8 - 35 U/L Normal 01-21-2020 [facility] (15609) Comment: Performed By: #### [id number] ## ## [facility] [place],[address] [place] [address] Anion gap [Moles/Vol] 14 10 - 20 mmol/L Normal 01-21-20 [facility] ( 72976) Comment: Performed By: #### [id number] ## ## [facility] [place],[address] [place] [address]907 AST/SGOT 15 13 - 39 U/L Normal 01-21-2020 [facility] (66870) Comment: Performed By: #### [id number] ## ## [facility] [place],[address] [place] [address] 46222 B/C RATIO 16 0 - 30 ratio Normal 01-21-2020 [facility] (39467) Comment: Performed By: #### [id number] ## ## [facility] [place],[address] [facility] [address] Bilirubin [Mass/Vol] 0.4 0.0 - 1.5 mg/dl Normal 0 [facility] ( 99237) Comment: Performed By: #### [id number] ## ## [facility] [place],[address] [place] [address] Calcium [Mass/Vol] 9.0 8.6 - 10.2 mg/dl Normal 01-21-2020 [facility] ( 80279) Comment: Performed By: #### [id number] ## ## [facility],[address] [place] [address]75 Chloride [Moles/Vol] 106 98 - 107 mmol/L Normal 0 [facility] ( 69123) Comment: Performed By: #### [id number] ## ## [facility] [facility],[address] [place] [address] 08888 CO2 [Moles/Vol] 23.5 21.0 - 31.0 mmol/L Normal 01-21-2020 [facility] ( 38490) Comment: Performed By: #### [id number] ## ## [facility],[address] [place] [address] 08125 Creatinine [Mass/Vol] 0.7 0.6 - 1.2 mg/dl Normal 01-21-20 20 [facility] ( 17344) Comment: Performed By: #### [id number] ## ## [facility],[address] [place] [address] 64116 GFR/1.73 sq M >60 60 - 999 mL/min/{1.73_m2} Normal 0 [facility] non-blacks MDRD (000 00) (S/P/Bld) [Vol rate/Area] Comment: Result Comment: ACCORDING TO THE NATIONAL KIDNEY DISEASE EDUCATION PROGRAM(NKDE), A NORMAL eGFR IS A VALUE GREATER THAN OR E QUAL TO 60 ML/MIN/1.73 SQ METERS. CHRONIC KIDNEY DISEASE: <60m L/MIN/1.73 SQ METERS KIDNEY FAILURE: <15mL/MIN/1. 73 SQ METERS THIS TEST SHOULD ONLY BE USE D FOR PATIENTS 18 YEARS OF AGE AND OLDER. Performed By: #### [id number] ## ## [facility],[address] [place] [address] 54599 GFR/1.73 sq M predicted among Normal 01-21-2020 [facility] non-blacks MDRD (S/P/Bld) [Vol Hospital (68955) rate/Area] Comment: Result Comment: COMPREHENSIV E METABOLIC PANEL Performed By: #### [id number] ## ## [facility],[address] [place] [address] 22200 Globulin (S) [Mass/Vol] 2.8 1.5 - 3.8 G/DL Normal 2019 [facility] ( 44546) Comment: Performed By: #### [id number] ## ## [address] [place] [address] Glucose [Mass/Vol] 139 74 - 106 mg/dl High 01-21-2020 [facility] (28419) Comment: Performed By: #### [id number] ## ## [address] [address] Potassium [Moles/Vol] 4.0 3.5 - 5.1 mmol/L Normal 01-21-20 [facility] ( 68742) Comment: Performed By: #### [id number] ## ## [address] [place] [address] Protein [Mass/Vol] 6.5 6.4 - 8.3 g/dl Normal 01-21-2020 [facility] ( 65932) Comment: Performed By: #### [id number] ## ## [address] [place] [address] Sodium [Moles/Vol] 139 136 - 145 mmol/l Normal 01-21-2020 [facility] ( 13829) Comment: Performed By: #### [id number] ## ## [facility],[address] [place] [address] 34661 Urea nitrogen [Mass/Vol] 11 6 - 20 mg/dl Normal 01-20 [facility] ( 30559) Comment: Performed By: #### [id number] ## ## [facility],[address] [place] [address] 75516 cbc + diff on 01-20 Basophils (Bld) 0.10 0.00 - 0.10 x10EE3/UL Normal 01-21-2020 [facility] [#/Vol] [facility] (82402) Comment: Performed By: #### [id number] ## ## [facility],[address] [place] [address] 88255 Basophils/100 WBC (Bld) 1.1 0.0 - 2.0 % Normal 2019 [facility] ( 40576) Comment: Performed By: #### [id number] ## ## [facility],[address] [place] [address] 24420 CBC + DIFF Normal 01-21-2020 [facility] (08651) Comment: Result Comment: CBC-COMPLETE BLOOD COUNT Performed By: #### [id number] ## ## [facility],[address] [place] [address] 84195 Eosinophils (Bld) 0.70 0.00 - 0.50 x10EE3/UL High 01-21-2020 [facility] [#/Vol] [facility] (27758) Comment: Performed By: #### [id number] ## ## [facility],[address] [place] [address] 95003 Eosinophils/100 WBC (Bld) 6.0 0.0 - 7.0 % Normal 01-02 [facility] ( 29316) Comment: Performed By: #### [id number] ## ## [facility], [facility],[address] [place] [address] 80343 Erythrocyte distribution 13.3 12.0 - 15.6 % Normal [facility] (RBC) [Ratio] Hospital (27817) Comment: Performed By: #### [id number] ## ## [facility],[address] [place] [address] 62259 Hematocrit (Bld) [Volume 43.2 34.0 - 46.0 % Normal [facility] ( 36001) Comment: Performed By: #### [id number] ## ## [facility],[address] [place] [address] 23114 Hemoglobin (Bld) 14.7 12.0 - 16.0 g/dl Normal 01-21-2020 [facility] [Mass/Vol] [facility] (28930) Comment: Performed By: #### [id number] ## ## [facility],[address] [place] [address] 90351 Lymphocytes (Bld) 3.00 0.80 - 2.80 x10EE3/UL High 01-21-2020 [facility] [#/Vol] [facility] (24261) Comment: Performed By: #### [id number] ## ## [facility],[address] [place] [address] 97504 Lymphocytes/100 WBC (Bld) 26.9 20.0 - 45.0 % Normal [facility] ( 71025) Comment: Performed By: #### [id number] ## ## [facility],[address] [place] [address] 29420 MANUAL DIFF N/A Normal 01-21-[address] [facility] (82455) Comment: Performed By: #### [id number] ## ## [facility],[address] [place] [address] 23967 MCH (RBC) [Entitic mass] 33 27 - 33 pg Normal 01-20 [facility] ( 19379) Comment: Performed By: #### [id number] ## ## [facility],[address] [place] [address] 44347 MCHC (RBC) [Mass/Vol] 34 32 - 36 X10 3 Normal 01-21-20 [facility] ( 27078) Comment: Performed By: #### [id number] ## ## [facility],[address] [place] [address] 23096 MCV (RBC) [Entitic vol] 97 80 - 99 fl Normal 2019 [facility] ( 31202) Comment: Performed By: #### [id number] ## ## [facility],[address] [place] [address] 66319 Monocytes (Bld) 0.90 0.20 - 1.00 x10EE3/UL Normal 01-21-2020 [facility] [#/Vol] [facility] (63637) Comment: Performed By: #### [id number] ## ## [facility],[address] [place] [address] 45000 MONOS % 7.8 0.0 - 10.0 % Normal 01-21-2020 [facility] (57603) Comment: Performed By: #### [id number] ## ## [facility],[address] [place] [address] 83935 Morphology Herbert (Bld) [Interp] N/A Normal 01-21-2020 [facility] ( 69609) Comment: Performed By: #### [id number] ## ## [facility], [facility],[address] [place] [address] 75826 Neutrophils (Bld) 6.50 1.50 - 7.10 x10EE3/UL Normal 01-21-2020 [facility] [#/Vol] [facility] (85841) Comment: Performed By: #### [id number] ## ## [facility], [facility],[address] [place] [address] 23117 Neutrophils/100 WBC (Bld) 58.2 46.0 - 76.0 % Normal [facility] ( 30630) Comment: Performed By: #### [id number] ## ## [facility],[address] [place] [address] 95320 Platelet mean volume 8.4 6.6 - 10.5 fl Normal 01-21-20 20 [facility] (Bld) [Entitic vol] Hospital (66482) Comment: Result Comment: AUTOMATED DI FFERENTIAL Performed By: #### [id number] ## ## [facility],[address] [place] [address] 41477 Platelets (Bld) 365 150 - 450 x10EE3/UL Normal 01-21-2020 [facility] [#/Vol] [facility] (52611) Comment: Performed By: #### [id number] ## ## [facility],[address] [place] [address] 75892 RBC (Bld) [#/Vol] 4.46 4.10 - 5.30 x 10EE6/UL Normal 0 [facility] (50446) Comment: Performed By: #### [id number] ## ## [facility],[address] [place] [address] 19024 WBC (Bld) [#/Vol] 11.2 4.5 - 10.8 x 10EE3/UL High 01-21-2020 [facility] ( 47987) Comment: Performed By: #### [id number] ## ## [facility],[address] [place] [address] 84449 c-reactive protein on 2020-01-21 CRP [Mass/Vol] 0.35 0.00 - 1.00 mg/dl Normal 01-21-2020 [facility] ( 14189) Comment: Performed By: #### [id number] ## ## [facility],[address] [place] [address] 11432 emergency report on 2019-09-08 EMERGENCY REPORT [facility] Normal 09-08 [facility] EMERGENCY ROOM REPORT ([id number]) NAME ACCOUNT SEX AGE ADMIT DISCHARGE PT MED. RECORD# NUMBER DATE DATE TYPE CHANNING HARDING [id number] F 48 08/28/19 08/28/19 3 K [id number] ROOM: ER DATE OF : 1970 DICTATING PHYSICIAN: Riddhi Guzman ADDENDUM: The patient was signed out t o me at 0015 hours this morning by Dr. Chris pending pelvic ultrasound. Dr. Chris has see n her recently complaining of pelvic pain, discharge. She had a UTI and put her on Ellyn trim, doxycycline, which she is still taking. She came back with more pain. DIAGNOSTIC DATA: She did an abdominal CAT scan, which was ne gative. She did a pelvic ultrasound, which was essentially negative except for a fibroid. Her urinary tract infection is resolved at this point. White count was normal, H&H are stable. No left shift. She d id a pelvic exam on her as well. No trichomonas. Electrolytes are completely normal. Negat anitha for influenza. Negative for a urinary tract infection. DIAGNOSES: 1. Abdominal pain. 2. Pelvic pain. PLAN/DISPOSITION: At this ti me, the patient is complaining of nonspecific lower abdominal pain, pelvic pain. I spoke with her, and told her that her testing here was negative, and that she is to continue the doxycycline. I gave her a family doctor and [facility] to follow up with. Sh e is to return for increasing, worsening, or new symptoms. Dictated By: Riddhi Guzman DO 08/28/19 08:51 JOB #: [id number] Transcribed By: am 08/28/19 16:20 Electronically signed by: E-Sign: RIDDHI GUZMAN MD 09/08/19 08:14 Page 1 of 2 MEAGHAN CHANNING Mikey Emergency Room Report emergency report on 2019-09-03 EMERGENCY REPORT [facility] Normal 09-03 [facility] EMERGENCY ROOM REPORT ([id number]) NAME ACCOUNT SEX AGE ADMIT DISCHARGE PT MED. RECORD# NUMBER DATE DATE TYPE CHANNING HARDING [id number] F 48 08/28/19 08/28/19 3 K [id number] ROOM: ER DATE OF : 1970 DICTATING PHYSICIAN: Faina Ford HISTORY OF PRESENT ILLNESS: This patient is a 48-year- old female with a past medical history significant for left oophorectomy who presents to the emergency department for evaluation fo r low abdominal pain worse on the left side. The patient was recently seen it the emergen cy department 6 days ago for similar symptoms. At the time, she was diagnosed with a urinary tract infection and MRSA abscesses. She was discharged to home on doxycy taylor and Bactrim and cultures were sent for sensitivity. Wound cultures came back sen sitive for Bactrim and tetracycline. Urine cultures came back positive for gram-posit anitha cocci that was suspected to be contamination. The patient states that her symp toms have continued to be present, but became worse this evening with waxing and waning abdominal pain accompan ied by nausea, but now vomiting. The patient states the pain become int olerable, hence coming to the emergency department. She ho wever denies fevers, chills, chest pain, shortness of breath, vomiting, hematochezia, diarrhea, constipation or urinary symptoms. REVIEW OF SYSTEMS: Refer to HPI. PHYSICAL EXAMINATION: Ill-ap pearing female in mild distress writhing in bed. Facial abscesses healing well with scabs. Oropharynx is clear and moist. No cervical lymphadenopathy. Lungs: Lung s clear to auscultation bilaterally with no wheezes or crackles appreciated. Heart rate and rhythm regular with no murmurs appreciated. Abdomen with tenderness to p alpation worse on the left lower quadrant. Pelvic exam is significant for mild amount of yellowish drainage with no cervical friability. The patient with adnexal tenderness, worse on the right. DIAGNOSTIC DATA: MEDICAL DECISION MAKING/EMERGENCY DEPARTMENT COURSE AND TREATMENT: This is a 48-year -old female presenting for evaluation for abdominal pain. She was recently treat ed for abscesses and UTI. The patient's presentation is concerning for ovarian torsi on versus tubal ovarian abscess versus pelvic inflammatory disease versus persistent ur inary tract infection. The patient's workup was significant for no leukocytosis, no anemia w ith a CT abdomen and pelvis with contrast which revealed IUD in place with moderate s tool burden and no other acute findings. Samples were sent for gonorrhea, chlamydi a, trichomoniasis, and bacterial vaginosis. The patient received flexeril and [place] l with some improvement of symptoms. Given her exam findings, we also ordered an ultrasound of her pelvis. Page 1 of 2 CHANNING HARDING Emergency Room Report CHANNING HARDING : 1970 PLAN/DISPOSITION: The patient was signed out to Dr. Guzman for disposition with ultrasound results and vaginal swabs pending. Dictated By: Faina Ford MD 08/28/19 07:03 JOB #: [id number] Transcribed By: am 08/28/19 14:09 Electronically signed by: Cory Eisenberg MD 09/03/19 20:19 Page 2 of 2 CHANNING HARDING Emergency Room Report gc/chlam amplification swab [ccl] on 2019-08-30 Chlamydia Amplif Negative for Chlamydia Normal 08-30-2019 [facility] trachomatis by [facility] amplification. (0000 0) Comment: Result Comment: [facility] [address] [place] [address] Yaritza Curiel M.D. [id number] Performed By: #### [id number] ## ## [facility],[address] [place] [address] 81056 GC Amplification Negative for Neisseria Normal 08-30-2019 [facility] gonorrhoeae by [facility] amplification. (0000 0) Comment: Performed By: #### [id number] ## ## [facility],[address] [place] [address] 74245 GC/Chlam Amp Source . Normal 08-30-2019 [facility] (04783) Comment: Performed By: #### [id number] ## ## [facility],[address] [place] [address] 93486 wet prep trichomonas on 2019-08-28 WET PREP TRICHOMONAS WET PREP TRICHOMONAS Normal 08-28-2019 [facility] WET PREP TRICHOMONAS [facility] WET PREP: (54119) No Trich. seen Comment: Performed By: #### [id number] ## ## [facility],[address] [place] [address] 26445 us pelvic endo vaginal on 2019-08-28 US PELVIC [facility] Normal 019 [facility] [address] [place], [place] [address] (19807) Patient: CHANNING HARDING Phone#: : 1970 Age: 48 Gender: F Pt. Type: ER Account: [id number] Location: 052 Ordering: DR. FAINA FORD Exam Date: 08/28/2019/7:45 Family Phys: YENI WINSTON Charge Code: 324522 Physician: [place] Order #: [id number] P Dose#: PROCEDURE: PELVIC (NON OB) LIMITED ULTRASOUND COMPARISON: None. INDICATIONS: Pelvic pain. TECHNIQUE: Pelvic ultrasound using transabdominal and endovaginal technique. FINDINGS: UTERUS: The uterus is 9.8 x 4.9 x 6.7 cm. The echo pattern is heterogeneous consistent with fibroid changes. The endometrium is 2.5 mm in thickness. ADNEXAE: The right ovary is 4.5 x 2.5 x 4.1 cm. The left ova ry is absent. CUL-DE-SAC: Normal. No fluid or mass. OTHER: Negative. CONCLUSION: 1. The uterus is bulbous in contour and heterogeneous in echo pattern consistent with fibroid changes. 2. There is no evidence of adnexal mass or free fluid. Dictated by: Yazmin Hurtado MD on 08/28/2019 at 8:38 Approved by: Yazmin Hurtado MD on 08/28/2019 at 8:38 us pelvic (non ob) limited on 2019-08-28 PELVIC (NON OB) [facility] Normal [facility] [address] [place], [place] [address] (56244) Patient: CHANNING HARDING Phone#: : 1970 Age: 48 Gender: F Pt. Type: ER Account: [id number] Location: 052 Ordering: DR. FAINA FORD Exam Date: 08/28/2019/7:45 Family Phys: YENI WINSTON Charge Code: 866202 Physician: [place] Order #: [id number] DLP Dose#: PROCEDURE: PELVIC (NON OB) LIMITED ULTRASOUND COMPARISON: None. INDICATIONS: Pelvic pain. TECHNIQUE: Pelvic ultrasound using transabdominal and endovaginal technique. FINDINGS: UTERUS: The uterus is 9.8 x 4.9 x 6.7 cm. The echo pattern is heterogeneous consistent with fibroid changes. The endometrium is 2.5 mm in thickness. ADNEXAE: The right ovary is 4.5 x 2.5 x 4.1 cm. The left ova ry is absent. CUL-DE-SAC: Normal. No fluid or mass. OTHER: Negative. CONCLUSION: 1. The uterus is bulbous in contour and heterogeneous in echo pattern consistent with fibroid changes. 2. There is no evidence of adnexal mass or free fluid. Dictated by: Yazmin Hurtado MD on 08/28/2019 at 8:38 Approved by: Yazmin Hurtado MD on 08/28/2019 at 8:38 urinalysis with microscopy on 2019-08-28 Amorphous NONE Normal 08-28-2019 [facility] (29940) Comment: Performed By: #### [id number] ## ## [place] [address] Bacteria LM.HPF (Urine sed) NONE Normal [facility] [/Area] [facility] ( 35405) Comment: Performed By: #### [id number] ## ## [facility],[address] [place] [address] Bilirubin [Mass/Vol] NEG NORMAL: NEGATIVE mg/dL Normal [facility] (13457) Comment: Performed By: #### [id number] ## ## [place] [address] Blood 10 NORMAL: NEGATIVE Abnormal 08-28-2019 [facility] (40571) Comment: Performed By: #### [id number] ## ## [address],[place] [address] Casts LM.LPF (Urine sed) NONE Normal 08-28 [facility] [/Area] [facility] ( 90257) Comment: Performed By: #### [id number] ## ## [facility], [facility],[address] [place] [address] 15986 Clarity (U) clear NORMAL: CLEAR Normal 08-28-2019 [facility] (46055) Comment: Performed By: #### [id number] ## ## [facility], [facility],[address] [place] [address] 06140 Color (U) p.yel NORMAL: YELLOW Normal 08-28-2019 [facility] (42206) Comment: Performed By: #### [id number] ## ## [facility],[address] [place] [address] 88147 Crystals LM Nom (Urine sed) NONE Normal [facility] ( 45768) Comment: Performed By: #### [id number] ## ## [facility],[address] [place] [address] 30802 Epi Cells OCC Normal 08-28-2019 [facility] (00340) Comment: Performed By: #### [id number] ## ## [facility],[address] [place] [address] 60441 Glucose [Mass/Vol] NORM NORMAL: NORMAL Normal 2018 [facility] ( 51780) Comment: Performed By: #### [id number] ## ## [facility], [facility],[address] [place] [address] 54557 Ketone NEG NORMAL: NEGATIVE Normal 08-28-2019 [facility] (71062) Comment: Performed By: #### [id number] ## ## [facility], [facility],[address] [place] [address] 70180 Mucous NONE Normal 08-28-2019 [facility] (51549) Comment: Performed By: #### [id number] ## ## [facility],[address] [place] [address] 01984 Nitrite Ql (U) NEG NORMAL: NEGATIVE Normal 08-28-20 19 [facility] ( 02821) Comment: Performed By: #### [id number] ## ## [facility], [facility],[address] [place] [address] 94043 pH (Bld) 5 NORMAL: 5.0-8.0 Normal 08-28-2019 [facility] (88509) Comment: Performed By: #### [id number] ## ## [facility], [facility],[address] [place] [address] 79052 Protein (U) 15 NORMAL: NEGATIVE mg/dL Abnormal 08-28-2019 [facility] [Mass/Vol] [facility] (88873) Comment: Performed By: #### [id number] ## ## [facility],[address] [place] [address] 95498 Rbc 0-5 0-3 / hpf Normal 08-28-2019 [facility] (39011) Comment: Performed By: #### [id number] ## ## [facility],[address] [place] [address] 45582 Sp [place] 1.020 NORMAL: 1.010-1.030 Normal 9 [facility] ( 76308) Comment: Performed By: #### [id number] ## ## [facility], [facility],[address] [place], [place] [id number] Specimen type Nom (Spec) R Normal 08-28 [facility] (22720) Comment: Performed By: #### [id number] ## ## [facility], [facility],[address] [place] [address] 10158 URINALYSIS WITH MICROSCOPY Normal [facility] (27602) Comment: Result Comment: URINALYSIS Performed By: #### [id number] ## ## [facility], [facility],[address] [place] [address] 30152 Urobilinog NORM NORMAL: NORMAL Normal 08-28-2019 [facility] (75066) Comment: Performed By: #### [id number] ## ## [facility],[address] [place] [address] 27586 Wbc NONE 0-5 / hpf Normal 08-28-2019 [facility] (52699) Comment: Performed By: #### [id number] ## ## [facility],[address] [place] [address] 81965 WBC (Bld) [#/Vol] NEG NORMAL: NEGATIVE 10*3/uL Normal 08-28 [facility] (07221) Comment: Result Comment: URINE MICROS COPIC Performed By: #### [id number] ## ## [facility],[address] [place] [address] 65294 Yeast LM Ql (Urine sed) NONE Normal 2018 [facility] (15925) Comment: Performed By: #### [id number] ## ## [facility],[address] [place] [address] 38001 culture genital tract on 2019-08-28 CULTURE CULTURE GENITAL TRACT Normal 08-28-20 19 [facility] GENITAL _GENITAL TRACT CULTURE_ [place] TRACT M I C R O B I O L O G Y R E P O R T FINAL [facility] ----- Antimicrobial Susceptibility and Organism Identification Report Hospital Specimen Number : [id number] Requested : 08/28/19 ([id number]) Specimen Source : GENITAL TRACT Collected : 08/28/19 06:30 [place] [facility] : Emergency Room Received : 08/28/19 06:30 Requesting Physician : BHAVANA Patient/Specimen Tests and Comments Specimen Comments --------- FINAL REPORT: NORMAL VAGINAL RENÉ NO PATHOGENS PRESENT Tech : Source : GENITAL TRACT ID # : [id number] FINAL Report Date : / / : Collected : 08/28/19 06:30 08/30/19.1049.KLS. 08/29/19.0854.BKO. 08/30/19.1049.KLS.COMPLETE Comment: Performed By: #### [id number] ## ## [facility] [place] [facility],[address] [place] [address] abdomen/pelvis w on 2019-08-28 CT ABDOMEN/PELVIS W [facility] Normal [facility] [address] [place] [address] (50470) Patient: CHANNING HARDING Phone#: : 1970 Age: 48 Gender: F Pt. Type: ER Account: [id number] Location: 052 Ordering: DR. FAINA FORD Exam Date: 08/28/2019/6:00 Family Phys: YENI WINSTON Charge Code: 368119 Physician: [place] Order #: [id number] DLP Dose#: [id number] PROCEDURE: CT ABDOMEN/PELVIS WITH CONTRAST COMPARISON: [facility], CT, ABDOMEN/PELVIS W CON, 10/05, 19:09. INDICATIONS: Abdominal Pain TECHNIQUE: After obtaining t he patient's consent, CT images were created with non-ionic intravenous contrast material. All CT scans at this facilit y use dose modulation, iterative reconstruction, and/or weight based dosing when appropriate to reduce radiation dos e to as low as reasonably achievable. IV CONTRAST: Omnipaque 350,80ml TOTAL DOSE: 29.20 CTDIvol(mGy) FINDINGS: LIVER: Normal. No enlargement, atrophy, abnormal density, or significant focal lesion. BILIARY: Normal. No visible dilatation or calcification. PANCREAS: Normal. No lesion, fluid collection, d uctal dilatation, or atrophy. SPLEEN: Normal. No enlargement or focal lesion. KIDNEYS: Normal. No mass, obstruction, or calcification. ADRENALS: Normal. No mass or enlargement. AORTA/VASCULAR: Normal. No aneurysm or dissection. RETROPERITONEUM: Normal. No mass or adenopathy. BOWEL/MESENTERY: There is mo derate volume stool retention distally. Multiple nonspecific mesenteric lymph nodes are present. ABDOMINAL WALL: Normal. No mass or hernia. URINARY BLADDER: Normal. No visible focal wall thickening, lesion, or calculus. PELVIC NODES: Normal. No adenopathy. Continued Report - Page 2 of 2 Patient: CHANNING HARDING Phone#: : 1970 Age: 48 Gender: F Pt. Type: ER Account: [id number] Location: 052 Ordering: DR. FAINA FORD Exam Date: 08/28/2019/6:00 Family Phys: YENI WINSTON Charge Code: 285348 Physician: [place] Order #: [id number] DLP Dose#: [id number] PELVIC ORGANS: An IUD is pre sent. No visible mass. Pelvic organs appropriate for patient age. BONES: Mild degenerative changes of the spine are present. LUNG BASES: Normal. No visible pulmonary or pleural disease. OTHER: Negative. CONCLUSION: 1. IUD is present. 2. There is no evidence of acute abdominal or pelvic abnorma lity. 3. Moderate stool volume is present. Dictated by: Yazmin Hurtado MD on 08/28/2019 at 9:02 Approved by: Yazmin Hurtado MD on 08/28/2019 at 9:02 cmp with egfr on 21-08-26 Age - Reported 48 years Normal 08-28-2019 [facility] (13683) Comment: Performed By: #### [id number] ## ## [facility],[address] [place] [address] 78190 Albumin [Mass/Vol] 4.0 3.4 - 4.8 g/dL Normal 08-28-2019 [facility] ( 22847) Comment: Performed By: #### [id number] ## ## [facility],[address] [place] [address] 17368 Albumin/Globulin [Mass 1.5 0.9 - 1.6 {ratio} Normal 019 [facility] ratio] [facility] (50850) Comment: Performed By: #### [id number] ## ## [facility],[address] [place] [address] 54349 ALK PHOS 82 38 - 126 U/L Normal 08-28-2019 [facility] (65171) Comment: Performed By: #### [id number] ## ## [facility],[address] [place] [address] 29152 ALT/SGPT 22 8 - 35 U/L Normal 08-28-2019 [facility] (84218) Comment: Performed By: #### [id number] ## ## [facility],[address] [place] [address] 52688 Anion gap [Moles/Vol] 10 10 - 20 mmol/L Normal 08-28-20 19 [facility] ( 97196) Comment: Performed By: #### [id number] ## ## [facility] [place],[address] [place] [address] 40162 AST/SGOT 13 13 - 39 U/L Normal 08-28-2019 [facility] (25370) Comment: Performed By: #### [id number] ## ## [facility] [place],[address] [place] [address] 62504 B/C RATIO 26 0 - 30 ratio Normal 08-28-2019 [facility] (77676) Comment: Performed By: #### [id number] ## ## [facility] [place],[address] [place] [address] 08744 Bilirubin [Mass/Vol] 0.7 0.0 - 1.5 mg/dl Normal 9 [facility] ( 92062) Comment: Performed By: #### [id number] ## ## [facility] [place],1 [facility] 45184 Calcium [Mass/Vol] 8.9 8.6 - 10.2 mg/dl Normal 08-28-2019 [facility] ( 33987) Comment: Performed By: #### [id number] ## ## [facility],[address] [place] [address] 92798 Chloride [Moles/Vol] 106 98 - 107 mmol/L Normal 9 [facility] ( 49034) Comment: Performed By: #### [id number] ## ## [facility] [place],1 [facility] 36492 CO2 [Moles/Vol] 24.2 21.0 - 31.0 mmol/L Normal 08-28-2019 [facility] ( 41268) Comment: Performed By: #### [id number] ## ## [facility] [place],[address] [place] [address] 78389 Creatinine [Mass/Vol] 0.7 0.6 - 1.2 mg/dl Normal 08-28-20 19 [facility] ( 09364) Comment: Performed By: #### [id number] ## ## [facility],[address] [place] [address] 95496 GFR/1.73 sq M >60 60 - 999 mL/min/{1.73_m2} Normal 9 [facility] predicted among [facility] non-blacks MDRD (000 00) (S/P/Bld) [Vol rate/Area] Comment: Performed By: #### [id number] ## ## [facility],[address] [place] [address] 97688 Result Comment: ACCORDING TO THE NATIONAL KIDNEY DISEASE EDUCATION PROGRAM(NKDE), A NORMAL eGFR IS A VALUE GREATER THAN OR E QUAL TO 60 ML/MIN/1.73 SQ METERS. CHRONIC KIDNEY DISEASE: <60m L/MIN/1.73 SQ METERS KIDNEY FAILURE: <15mL/MIN/1. 73 SQ METERS THIS TEST SHOULD ONLY BE USE D FOR PATIENTS 18 YEARS OF AGE AND OLDER. GFR/1.73 sq M predicted among Normal 08-28-2019 [facility] non-blacks MDRD (S/P/Bld) [Vol Hospital (42409) rate/Area] Comment: Result Comment: COMPREHENSIV E METABOLIC PANEL Performed By: #### [id number] ## ## [facility],[address] [place] [address] 74830 Globulin (S) [Mass/Vol] 2.7 1.5 - 3.8 G/DL Normal 2018 [facility] ( 45826) Comment: Performed By: #### [id number] ## ## [facility],[address] [place] [address] 27782 Glucose [Mass/Vol] 99 74 - 106 mg/dl Normal 08-28-2019 [facility] ( 89889) Comment: Performed By: #### [id number] ## ## [facility],[address] [place] [address] 51736 Potassium [Moles/Vol] 4.0 3.5 - 5.1 mmol/L Normal 08-28-20 19 [facility] ( 80212) Comment: Performed By: #### [id number] ## ## [facility] [place],[address] [place] [address] 08997 Protein [Mass/Vol] 6.7 6.4 - 8.3 g/dl Normal 08-28-2019 [facility] ( 12067) Comment: Performed By: #### [id number] ## ## [facility] [place],[address] [place] [address] 21536 Sodium [Moles/Vol] 136 136 - 145 mmol/l Normal 08-28-2019 [facility] ( 12708) Comment: Performed By: #### [id number] ## ## [facility],[address] [place] [address] 24989 Urea nitrogen [Mass/Vol] 18 6 - 20 mg/dl Normal 08-28 [facility] ( 70053) Comment: Performed By: #### [id number] ## ## [facility],[address] [place] [address] 47159 cbc + diff on 08-28 Basophils (Bld) 0.10 0.00 - 0.10 x10EE3/UL Normal 08-28-2019 [facility] [#/Vol] [facility] (68342) Comment: Performed By: #### [id number] ## ## [facility],[address] [place] [address] 58177 Basophils/100 WBC (Bld) 1.1 0.0 - 2.0 % Normal 2018 [facility] ( 54010) Comment: Performed By: #### [id number] ## ## [facility],[address] [place] [address] 67560 CBC + DIFF Normal 08-28-2019 [facility] (02036) Comment: Result Comment: CBC-COMPLETE BLOOD COUNT Performed By: #### [id number] ## ## [facility] [place] [facility],[address] [place] [address] 24847 Eosinophils (Bld) 0.60 0.00 - 0.50 x10EE3/UL High 08-28-2019 [facility] [#/Vol] [facility] (38339) Comment: Performed By: #### [id number] ## ## [facility],[address] [place] [address] 19529 Eosinophils/100 WBC (Bld) 5.7 0.0 - 7.0 % Normal 08-04 [facility] ( 72726) Comment: Performed By: #### [id number] ## ## [facility],[address] [place] [address] 31591 Erythrocyte distribution 13.2 12.0 - 15.6 % Normal [facility] (RBC) [Ratio] Hospital (97364) Comment: Performed By: #### [id number] ## ## [facility],[address] [place] [address] 58006 Hematocrit (Bld) [Volume 41.5 34.0 - 46.0 % Normal [facility] ( 22733) Comment: Performed By: #### [id number] ## ## [facility],[address] [place] [address] 84554 Hemoglobin (Bld) 13.9 12.0 - 16.0 g/dl Normal 08-28-2019 [facility] [Mass/Vol] [facility] (52009) Comment: Performed By: #### [id number] ## ## [facility],[address] [place] [address] 74121 Lymphocytes (Bld) 3.00 0.80 - 2.80 x10EE3/UL High 08-28-2019 [facility] [#/Vol] [facility] (86062) Comment: Performed By: #### [id number] ## ## [facility],[address] [place] [address] 12932 Lymphocytes/100 WBC (Bld) 30.1 20.0 - 45.0 % Normal [facility] ( 45596) Comment: Performed By: #### [id number] ## ## [facility],[address] [place] [address] 81028 MANUAL DIFF N/A Normal 08-28-[address] [facility] (26402) Comment: Performed By: #### [id number] ## ## [facility],[address] [place] [address] 98684 MCH (RBC) [Entitic mass] 32 27 - 33 pg Normal 08-28 [facility] ( 72663) Comment: Performed By: #### [id number] ## ## [facility],[address] [place] [address] 23753 MCHC (RBC) [Mass/Vol] 34 32 - 36 X10 3 Normal 08-28-20 19 [facility] ( 59613) Comment: Performed By: #### [id number] ## ## [facility],[address] [place] [address] 67221 MCV (RBC) [Entitic vol] 97 80 - 99 fl Normal 2018 [facility] ( 49536) Comment: Performed By: #### [id number] ## ## [facility],[address] [place] [address] 88154 Monocytes (Bld) 0.90 0.20 - 1.00 x10EE3/UL Normal 08-28-2019 [facility] [#/Vol] [facility] (07343) Comment: Performed By: #### [id number] ## ## [facility],[address] [place] [address] 85791 MONOS % 9.1 0.0 - 10.0 % Normal 08-28-2019 [facility] (47020) Comment: Performed By: #### [id number] ## ## [facility],[address] [place] [address] 25937 Morphology Herbert (Bld) [Interp] N/A Normal 08-28-2019 [facility] ( 00220) Comment: Performed By: #### [id number] ## ## [facility],[address] [place] [address] 30757 Neutrophils (Bld) 5.40 1.50 - 7.10 x10EE3/UL Normal 08-28-2019 [facility] [#/Vol] [facility] (88212) Comment: Performed By: #### [id number] ## ## [facility],[address] [place] [address] 95435 Neutrophils/100 WBC (Bld) 54.0 46.0 - 76.0 % Normal [facility] ( 33128) Comment: Performed By: #### [id number] ## ## [facility],[address] [place] [address] 20596 Platelet mean volume 8.3 6.6 - 10.5 fl Normal 08-28-20 19 [facility] (Bld) [Entitic vol] [facility] (52280) Comment: Result Comment: AUTOMATED DI FFERENTIAL Performed By: #### [id number] ## ## [facility],[address] [place] [address] 26143 Platelets (Bld) 342 150 - 450 x10EE3/UL Normal 08-28-2019 [facility] [#/Vol] [facility] (18889) Comment: Performed By: #### [id number] ## ## [facility],[address] [place] [address] 34966 RBC (Bld) [#/Vol] 4.29 4.10 - 5.30 x 10EE6/UL Normal 9 [facility] (84881) Comment: Performed By: #### [id number] ## ## [facility],[address] [place] [address] 17146 WBC (Bld) [#/Vol] 10.0 4.5 - 10.8 x 10EE3/UL Normal 08-28-2019 [facility] ( 20556) Comment: Performed By: #### [id number] ## ## [facility],[address] [place], [place] [id number] emergency report on 2019-08-27 EMERGENCY REPORT [facility] Normal 08-27 [facility] EMERGENCY DEPARTMENT REPORT [facility] NAME NUMBER SEX AGE ADMIT DISC TYPE MED.RECORD# ([id number]) MEAGHAN Jensen [id number] F 48 08/23/19 08/23/19 E.R. [id number] ROOM:ER-B DATE OF :1970 PHYSICIAN NO.:[id number] PHYSICI AN NAME:Cory Eisenberg MD PHYSICIAN:TISH GONZALEZ FAMILY PHYSICIAN: TISH GONZALEZ DICTATING PHYSICIAN: Faina Ford Emergency/ Room Report HISTORY OF PRESENT ILLNESS: This patient is a 48-year-old female with no significant past medical history who presents to the Emergency Department for evaluation of lower abdominal pain with dysuria and pus-l tre urine. The patient states she has had abdominal pain for the last few days and today star estrella having dysuria while at work. The patient, however, denies fevers, chills, chest pain, shortness of breath, palpitations, diaphoresis, nausea, vomiting, diarrhea, constipation, hematuria, vaginal discharge, or vag inal bleeding. REVIEW OF SYSTEMS: As noted in the HPI. PHYSICAL EXAMINATION: Non-il l-appearing female in no acute distress, resting comfortably in bed. HEENT: Patient with multiple lesions on the face with induration and one on the back of the neck. Mucous membranes a re moist. No erythema appreciated on the face. No cervical lymphadenopathy. Lungs are c lear to auscultation bilaterally with no wheezes or crackles appreciated. Heart rate and rhythm are regular with no murmurs appreciated. Abdomen is soft, nontender, and nondistended. Patient with bilateral costovertebral angle tenderness. EMERGENCY DEPARTMENT COURSE AND TREATMENT: The patient's pre sentation is concerning for UTI versus ki dney stones. The patient also appears to have abscesses on the face. The patient's work-up was significant for mild leukocytosis without a left shift. No electrolyte abnormalities. N o renal function impairment. Urine with mild infection versus contamination. Urine was sen t for urine culture. The patient was started on doxycycline and Bactrim to cover both absces ses and UTI. We also obtained a CT of the abdomen/pelvis. CT with no acute findings. Disc ussed with the patient that given is symptomatic would plan to discharged her home on doxyc ycline and Bactrim for both the abscesses and UTI and send urine for culture, Educated her she will need to follow-up with her PCP for urine and wound culture results. She verbali zed understanding of information given and agreed with the treatment plan. She was discharged in stable condition. Dictated By: Faina Ford MD 08/23/19 07:14 JOB #: [id number] Transcribed By: [email or web address] 08/23/19 12:57 Electronically signed by: Cory Eisenberg MD 08/24/19 01:51 CHANN[place]ING : 1970 EMERGENCY ROOM REPORT MEAGHAN Jensen 1 [facility] EMERGENCY DEPARTMENT REPORT NAME NUMBER SEX AGE ADMIT DISC TYPE MED.RECORD# MEAGHAN CHANNING Jensen [id number] F 48 08/23/19 08/23/19 E.R. [id number] ROOM:ER-B DATE OF :1970 PHYSICIAN NO.:[id number] PHYSICI AN NAME:Coyr Eisenberg MD PHYSICIAN:TISH GONZALEZ FAMILY PHYSICIAN: TISH GONZALEZ EMERGENCY ROOM REPORT MEAGHAN Jensen 2 urinalysis on 08-23 Amorphous NONE Normal 08-23-2019 [facility] (14248) Comment: Performed By: #### [id number] ## ## [facility],[address] [place] [address] Bacteria LM.HPF (Urine sed) 1+ Normal [facility] [#/Area] [facility] ( 86947) Comment: Performed By: #### [id number] ## ## [facility],[address] [place] [address] Bilirubin [Mass/Vol] NEG NORMAL: NEGATIVE mg/dL Normal [facility] (40534) Comment: Performed By: #### [id number] ## ## [facility],[address],[place] [address] Blood 10 NORMAL: NEGATIVE Abnormal 08-23-2019 [facility] (17007) Comment: Performed By: #### [id number] ## ## [facility],[address] [place] [address] 77793 Casts LM.LPF (Urine sed) NONE Normal 08-23 [facility] [/Area] [facility] ( 84640) Comment: Performed By: #### [id number] ## ## [facility],[address] [place] [address] 47394 Clarity (U) clear NORMAL: CLEAR Normal 08-23-2019 [facility] (25685) Comment: Performed By: #### [id number] ## ## [facility],[address] [place] [address] 35286 Color (U) p.yel NORMAL: YELLOW Normal 08-23-2019 [facility] (97323) Comment: Performed By: #### [id number] ## ## [facility],[address] [place] [address] 58645 Crystals LM Nom (Urine sed) NONE Normal [facility] ( 51055) Comment: Performed By: #### [id number] ## ## [facility],[address] [place] [address] 93013 Epi Cells MODERATE Normal 08-23-2019 [facility] (69255) Comment: Performed By: #### [id number] ## ## [facility],[address] [place] [address] 69620 Glucose [Mass/Vol] NORM NORMAL: NORMAL Normal 2018 [facility] ( 80934) Comment: Performed By: #### [id number] ## ## [facility],[address] [place] [address] 39903 Ketone NEG NORMAL: NEGATIVE Normal 08-23-2019 [facility] (88502) Comment: Performed By: #### [id number] ## ## [facility],[address] [place] [address] 40231 Microscopic SEE BELOW Normal 08-23-[address] [facility] (82005) Comment: Result Comment: MICROSCOPIC Performed By: #### [id number] ## ## [facility],[address] [place] [address] 16061 Mucous 1+ Normal 08-23-2019 [facility] (24893) Comment: Performed By: #### [id number] ## ## [facility],[address] [place] [address] 08100 Nitrite Ql (U) NEG NORMAL: NEGATIVE Normal 08-23-20 19 [facility] ( 31942) Comment: Performed By: #### [id number] ## ## [facility],[address] [place] [address] 88326 pH (Bld) 6 NORMAL: 5.0-8.0 Normal 08-23-2019 [facility] (28837) Comment: Performed By: #### [id number] ## ## [facility],[address] [place], [place] [address] Protein (U) NEG NORMAL: NEGATIVE mg/dL Normal 08-23-2019 [facility] [Mass/Vol] [facility] (44488) Comment: Performed By: #### [id number] ## ## [facility],[address] [place] [address] 52536 Rbc 0-5 0-3/hpf Normal 08-23-2019 [facility] (12768) Comment: Performed By: #### [id number] ## ## [facility],[address] [place] [address] 39380 Sp [place] 1.020 NORMAL: 1.010-1.030 Normal 9 [facility] ( 90076) Comment: Performed By: #### [id number] ## ## [facility],[address] [place] [address] 00597 Specimen type Nom (Spec) Void Normal 08-23 [facility] (19190) Comment: Performed By: #### [id number] ## ## [facility] [place] [facility],[address] [place] [address] 34633 Urobilinog NORM NORMAL: NORMAL Normal 08-23-2019 [facility] (78678) Comment: Performed By: #### [id number] ## ## [facility] [place] [facility],[address] [place] [address] 83448 Wbc 16-25 0-5/hpf Normal 08-23-2019 [facility] (34643) Comment: Performed By: #### [id number] ## ## [facility],[address] [place] [address] 34588 WBC (Bld) [#/Vol] 500 NORMAL: NEGATIVE Abnormal 08-23 [facility] ( 22258) Comment: Performed By: #### [id number] ## ## [facility],[address] [place] [address] 98336 Yeast LM Ql (Urine sed) 1+ Normal 2018 [facility] (57817) Comment: Performed By: #### [id number] ## ## [facility],[address] [place] [address] 76609 urine on 2019-08-23 Beta HCG ( test) NEGATIVE NEGATIVE Normal 08-04 [facility] ( 15132) Comment: Performed By: #### [id number] ## ## [facility],[address] [place] [address] 20695 EXTERNAL QC DONE? YES Normal 08-23-2019 [facility] (14207) Comment: Performed By: #### [id number] ## ## [facility],[address] [place] [address] 77297 INTERNAL QC PASS Normal 08-23-[address] [facility] (13534) Comment: Performed By: #### [id number] ## ## [facility],[address] [place] [address] 35250 mrsa screen nares o n 2019-08-23 MRSA SCREEN NARES MRSA SCREEN Normal 08-23-2019 [facility] CALLED TO FRANKIE/0833/BKO (91149) Methicillin resistant Staphylococcus aur eus is a major cause of nosocomial and life threatning infections. MRSA infections have been associated with high rates of mortality and morbidity. This test is used for the qualitative detection of nasal colonization of methic illin resistant Staphylococcus aureus (MRSA) to aid in the prevention and control of MRSA infections in health care settings. The test is performed on anterior nares specimens from patients and healthcare workers to screen for MRSA colonization. This test is not intended to diagnose MRSA infection nor to guide or monitor treatment of infectio n. Comment: Performed By: #### [id number] ## ## [facility],[address] [place] [address] 75455 lipase on 2019-08-04 1 Lipase [Catalytic 16.0 18.0 - 51.0 U/L Low 08-23-2019 [facility] activity/Vol] Hospit [facility] (31776) Comment: Performed By: #### [id number] ## ## [facility] [place] [facility],[address] [place] [address] 38195 culture wound on 21-08-21 CULTURE CULTURE WOUND Normal 08-23-2019 [facility] WOUND _[facility]_ [facility] R O B I O L O G Y R E P O R T FINAL [facility] ----- Antimicrobial Susceptibility and Organism Identification Report Hospital Specimen Number : [id number] Requested : 08/23/19 ([id number]) Specimen Source : WOUND Collected : 08/23/19 05:25 Cuellar of Isolation : Emergency Room Received : 08/23/19 05:25 Requesting Physician : BHAVANA Patient/Specimen Tests and Comments Specimen Comments --------- FINAL REPORT: ABUNDANT GROWTH GRAM POSITIVE COCCI SOURCE: RIGHT FACE Organisms Identified --- ----- * 01 Methicillin Resistant Staphylococcus aureus 08/25/19 Comments --------- abundant growth Tech : _CALLED_TO_LAYLA_IN_ER____ Source : WOUND ID08/25/19. [id number]. F L 08/25/19, 13:40, KLS Report Date : / / : Collected : 08/23/19 05:25 Continued on Next Page M I C R O B I O L O G Y R E P O R T FINAL ----- Antimicrobial Susceptibility and Organism Identification Report Isolate 01 Methicillin Resistant Staphylococcus aureus Methicillin Resistant Staphylococcus aureus DRUG CARLOS Sys. Urine UNITS ML/DL --- ----- ----- Amp/Sulbactam 16/8 R* Ampicillin >8 R* Amox/K Clav >4/2 R* Clindamycin <=0.5 S Cefoxitin Screen >4 POS Ciprofloxacin 2 I Daptomycin <=0.5 S Erythromycin >4 R Nitrofurantoin <=32 Gentamicin <=4 S Inducible Clindamycin <=4/0.5 NEG Levofloxacin <=1 S Linezolid 2 S Moxifloxacin <=0.5 S Oxacillin >2 R Penicillin >8 R* Rifampin <=1 S Synercid <=0.5 S Trimeth/Sulfa <=0.5/9.5 S Tetracycline <=4 S Vancomycin 2 S B-Lactamase Positive +, ++, +++, or S = Susceptib le N/R = Not Reported Luis Felipe = Beta Lactamase Positive I = Intermediate CC = Cost Code TFG = Thymidine-dependent St rain R = Resistant CARLOS = mcg/ml ( mg/L) Blank = Data not available, or drug not advisable or tested For Blood and CSF Isolates, a Beta-Lactamase test is recommended for Enterococus species. IB appears in place of S, I (S), +, ++, or +++ with species known to possess inducible B-lactamases; potentially they may become resistant to all B-lactam dr ugs. Monitoring of patients during/after therapy is recommended. Avoid other/combined B-lactam drugs. (a) Use maximum doses of isaias g with an aminoglycoside for P. aeruginosa in patients with granulocytopenia or serious infections. (b) Breakpoints based on par enteral dose. For cefuroxime Axetil (PO) use <8=S, 8-16=I, >16=R. (c) For non-enterococcal str eptococci, Micrococcus species, and Listeria species, refer to the Ampicillin interpretation. * Interpretations based on a pprox. adult attainable systemic/urine levels, except drugs with <3 dilutions, which print NCCLS. Doses are guidelines; consider weight and renal/hepatic function. Urine interpretation for lower UTI only. Interpretations based on NCCLS M7-A2. Ticar/Mikey Clav'ate for gram positives based on home designer's breakpoints. Tech : _CALLED_TO_LAYLA_IN_ER____ Source : WOUND ID08/25/19. [id number]. F L 08/25/19, 13:40, KLS Report Date : / / : Collected : 08/23/19 05:25 08/25/[id number].KLS. 08/24/19.0851.BKO. SEND TO PHARMACY? YES 08/25/19.1447.[id number].COMPLETE 08/25/19, 13:40, KLS 08/25/19, 13:40, KLS YES Comment: Performed By: #### [id number] ## ## [facility],[address] [place] [address] culture urine on 21-08-21 CULTURE CULTURE URINE Normal 08-23-2019 Frankie URINE _URINE CULTURE_ [place] B I O L O G Y R E P O R T FINAL [facility] ----- Antimicrobial Susceptibility and Organism Identification Report Hospital Specimen Number : [id number] Requested : 08/23/19 ([id number]) Specimen Source : URINE Collected : 08/23/19 05:25 [place] of Isolation : Emergency Room Received : 08/23/19 05:25 Requesting Physician : BHAVAAN Patient/Specimen Tests and Comments Specimen Comments --------- FINAL REPORT: URINE COLONY COUNT: [id number] CFU/CC >OR=TO 3 COLONY TYPES CONTAMINATED WITH: GRAM POSITIVE RENÉ Tech : Source : URINE ID # : [id number] FINAL Report Date : / / : Collected : 08/23/19 05:25 08/26/19.142.KLS. 08/24/19.0851.BKO. 08/26/19.1420.KLS.COMPLETE Comment: Performed By: #### [id number] ## ## [facility],[address] [place] [address] ct kub (kidney stone protocol) on 2019-08-23 CT KUB ([facility] Normal 019 [facility] STONE PROTOCOL) [place] [id number] ([id number]) Patient: CHANNING HARDING Phone#: : 1970 Age: 48 Gender: F Pt. Type: ER Account: [id number] Location: 2 Ordering: DR. FAINA FORD Exam Date: 08/23/2019/6:32 Family Phys: YENI WINSTON Charge Code: [id number] Physician: Windham Order #: [id number] DLP Dose#: 18.90 PROCEDURE: CT ABDOMEN AND PELVIS WITHOUT CONTRAST COMPARISON: None. INDICATIONS: Abdominal Pain TECHNIQUE: After obtaining t he patient's consent, CT images of the abdomen and pelvis were created without non-ionic intravenous contrast material. All CT scans at this facilit y use dose modulation, iterative reconstruction, and/or weight based dosing when appropriate to reduce radiation dos e to as low as reasonably achievable. IV CONTRAST: No IV contrast used,0ml TOTAL DOSE: 18.90 CTDIvol(mGy) FINDINGS: KIDNEYS: Normal. No mass, obstruction, or calcification. ADRENALS: Normal. No mass or enlargement. URINARY BLADDER: Normal. No visible focal wall thickening, lesion, or calculus. LIVER: Normal. No enlargement, atrophy, abnormal density, or significant focal lesion. BILIARY: The gallbladder is contracted. PANCREAS: Normal. No lesion, fluid collection, d uctal dilatation, or atrophy. SPLEEN: Normal. No enlargement or focal lesion. AORTA/VASCULAR: Normal. No aneurysm. RETROPERITONEUM: Normal. No mass or adenopathy. BOWEL/MESENTERY: Sigmoid div erticula are present without inflammatory change. No visible mass, obstruction, or bowel wall thickening. ABDOMINAL WALL: Nonspecific inguinal lymph nodes are present.. No mass or hernia. PELVIC NODES: Normal. No adenopathy. PELVIC ORGANS: IUD is presen t. No visible mass. Pelvic organs appropriate for patient age. Continued Report - Page 2 of 2 Patient: CHANNING HARDING Phone#: : 1970 Age: 48 Gender: F Pt. Type: ER Account: [id number] Location: [facility] Ordering: DR. FAINA FORD Exam Date: 08/23/2019/6:32 Family Phys: YENI WINSTON Charge Code: [id number] Physician: Windham Order #: [id number] DLP Dose#: 18.90 BONES: Degenerative changes of the spine are present. LUNG BASES: Normal. No visible pulmonary or pleural disease. OTHER: Negative. CONCLUSION: 1. IUD is present. 2. There is no evidence of renal or ureteral calculi. 3. Nonspecific bilateral inguinal lymph nodes are present. Dictated by: Yazmin Hurtado MD on 08/23/2019 at 9:06 Approved by: Yazmin Hurtado MD on 08/23/2019 at 9:06 cmp with egfr on 21-08-21 Age - Reported 48 years Normal 08-23-2019 [facility] ([id number]) Comment: Performed By: #### [id number] ## ## [address] [address] Albumin [Mass/Vol] 4.6 3.4 - 4.8 g/dL Normal 08-23-2019 [facility] ( 36973) Comment: Performed By: #### [id number] ## ## [facility],[address],[place] [address] Albumin/Globulin [Mass 1.5 0.9 - 1.6 {ratio} Normal 019 [facility] (16742) Comment: Performed By: #### [id number] ## ## [facility], [place],[address] [facility] [address] ALK PHOS 88 38 - 126 U/L Normal 08-23-2019 [facility] (01969) Comment: Performed By: #### [id number] ## ## [facility], [place],[address] [facility] [address] ALT/SGPT 28 8 - 35 U/L Normal 08-23-2019 [facility] (51676) Comment: Performed By: #### [id number] ## ## [facility], [place],[address] [facility] [address] Anion gap [Moles/Vol] 13 10 - 20 mmol/L Normal 08-23-20 19 [facility] ( 90714) Comment: Performed By: #### [id number] ## ## [facility], [place],[address] [facility] [address] AST/SGOT 17 13 - 39 U/L Normal 08-23-2019 [facility] (87172) Comment: Performed By: #### [id number] ## ## [facility], [place],[address] [place] [address] [place] [address] B/C RATIO 29 0 - 30 ratio Normal 08-23-2019 [facility] (92951) Comment: Performed By: #### [id number] ## ## [facility], [place],[address] [facility] [address] Bilirubin [Mass/Vol] 0.5 0.0 - 1.5 mg/dl Normal 9 [facility] ( 88111) Comment: Performed By: #### [id number] ## ## [facility], [place],[address] [place] [address] Calcium [Mass/Vol] 9.5 8.6 - 10.2 mg/dl Normal 08-23-2019 [facility] ( 35885) Comment: Performed By: #### [id number] ## ## [facility],[address] [place] [address] Chloride [Moles/Vol] 102 98 - 107 mmol/L Normal 9 [facility] ( 40207) Comment: Performed By: #### [id number] ## ## [facility],[address] [place] [address] CO2 [Moles/Vol] 26.3 21.0 - 31.0 mmol/L Normal 08-23-2019 [facility] ( 47179) Comment: Performed By: #### [id number] ## ## [facility],[address] [place] [address] Creatinine [Mass/Vol] 0.7 0.6 - 1.2 mg/dl Normal 08-23-20 19 [facility] ( 31523) Comment: Performed By: #### [id number] ## ## [facility],[address] [place] [address] GFR/1.73 sq M >60 60 - 999 mL/min/{1.73_m2} Normal 9 [facility] predicted among [facility] non-blacks MDRD (000 00) (S/P/Bld) [Vol rate/Area] Comment: Result Comment: ACCORDING TO THE NATIONAL KIDNEY DISEASE EDUCATION PROGRAM(NKDE), A NORMAL eGFR IS A VALUE GREATER THAN OR E QUAL TO 60 ML/MIN/1.73 SQ METERS. CHRONIC KIDNEY DISEASE: <60m L/MIN/1.73 SQ METERS KIDNEY FAILURE: <15mL/MIN/1. 73 SQ METERS THIS TEST SHOULD ONLY BE USE D FOR PATIENTS 18 YEARS OF AGE AND OLDER. Performed By: #### [id number] ## ## [facility],[address] [place] [address] GFR/1.73 sq M predicted among Normal 08-23-2019 [facility] non-blacks MDRD (S/P/Bld) [Vol Hospital (70230) rate/Area] Comment: Result Comment: COMPREHENSIV E METABOLIC PANEL Performed By: #### [id number] ## ## [facility], [facility],[address] [place] [address] Globulin (S) [Mass/Vol] 3.0 1.5 - 3.8 G/DL Normal 2018 [facility] ( 96002) Comment: Performed By: #### [id number] ## ## [facility] [place] [facility],[address] [place] [address] [place] [address] Glucose [Mass/Vol] 97 74 - 106 mg/dl Normal 08-23-2019 [facility] ( 17782) Comment: Performed By: #### [id number] ## ## [facility],[address] [place] [address] Potassium [Moles/Vol] 3.9 3.5 - 5.1 mmol/L Normal 08-23-20 [facility] ( 04362) Comment: Performed By: #### [id number] ## ## [facility],[address] [place] [address] [place] [address] Protein [Mass/Vol] 7.6 6.4 - 8.3 g/dl Normal 08-23-2019 [facility] ( 13746) Comment: Performed By: #### [id number] ## ## [facility],[address] [place] [address] [place] [address] Sodium [Moles/Vol] 137 136 - 145 mmol/l Normal 08-23-2019 [facility] ( 44996) Comment: Performed By: #### [id number] ## ## [facility],[address] [place] [address] [place] [address] Urea nitrogen [Mass/Vol] 20 6 - 20 mg/dl Normal 08-23 [facility] ( 02561) Comment: Performed By: #### [id number] ## ## [facility],[address] [facility] [address] chest 2 views on 21-08-21 CHEST 2 VIEWS [facility] Normal 08-23-20 [facility] [address] [place] [address] ([id number]) Patient: CHANNING HARDING Phone#: : 1970 Age: 48 Gender: F Pt. Type: ER Account: [id number] Location: [facility] Ordering: DR. FAINA FORD Exam Date: 08/23/2019/6:33 Family Phys: YENI WINSTON Charge Code: [id number] Physician: Windham Order #: [id number] DLP Dose#: PROCEDURE: X-RAY CHEST 2 VIEWS COMPARISON: [facility], XR, CHEST 1 VIEW, 02/12/2019, 9:10. INDICATIONS: Wheezing FINDINGS: LUNGS: Normal. No significant pulmonary parenchymal abnormal ities. VASCULATURE: Normal. Unremarkable pulmonary vasculature. CARDIAC: Normal. No cardiac silhouette abnormality or cardio megaly. MEDIASTINUM: Normal. No visible mass or adenopathy. PLEURA: Normal. No effusion or pleural thickening. BONES: Normal. No fracture or visible bony lesion. OTHER: Negative. CONCLUSION: No acute disease. No significant change has occu rred. Dictated by: Yazmin Hurtado MD on 08/23/2019 at 8:26 Approved by: Yazmin Hurtado MD on 08/23/2019 at 8:26 cbc + diff on 08-23 Basophils (Bld) 0.10 0.00 - 0.10 x10EE3/UL Normal 08-23-2019 Ken john [place] [#/Vol] [facility] (31213) Comment: Performed By: #### [id number] ## ## [facility],[address] [facility] [address] Basophils/100 WBC (Bld) 1.0 0.0 - 2.0 % Normal 2018 [facility] ( 80077) Comment: Performed By: #### [id number] ## ## [facility] [place] [facility],[address] [place] [address] CBC + DIFF Normal 08-23-2019 [facility] (81487) Comment: Result Comment: CBC-COMPLETE BLOOD COUNT Performed By: #### [id number] ## ## [facility] [place] [facility],[address] [place] [address] Eosinophils (Bld) 0.70 0.00 - 0.50 x10EE3/UL High 08-23-2019 [facility] [#/Vol] [facility] (01374) Comment: Performed By: #### [id number] ## ## [facility],[address] [place] [address] Eosinophils/100 WBC (Bld) 6.0 0.0 - 7.0 % Normal 08-04 [facility] ( 04208) Comment: Performed By: #### [id number] ## ## [facility],[address] [place] [address] Erythrocyte distribution 13.3 12.0 - 15.6 % Normal [facility] (RBC) [Ratio] [facility] (79056) Comment: Performed By: #### [id number] ## ## [facility],[address] [place] [address] Hematocrit (Bld) [Volume 41.5 34.0 - 46.0 % Normal [facility]] [facility] ( 36903) Comment: Performed By: #### [id number] ## ## [facility],[address] [place] [address] Hemoglobin (Bld) 13.7 12.0 - 16.0 g/dl Normal 08-23-2019 [facility] [Mass/Vol] [facility] (68083) Comment: Performed By: #### [id number] ## ## [facility] [place] [facility],[address] [place] [address] Lymphocytes (Bld) 2.80 0.80 - 2.80 x10EE3/UL Normal 08-23-2019 [facility] [#/Vol] [facility] (05725) Comment: Performed By: #### [id number] ## ## [facility],[address] [place] [address] Lymphocytes/100 WBC (Bld) 22.5 20.0 - 45.0 % Normal [facility] ( 85004) Comment: Performed By: #### [id number] ## ## [facility],[address] [place] [address] MANUAL DIFF N/A Normal 08-23-[address] [facility] (37519) Comment: Performed By: #### [id number] ## ## [facility],[address] [place] [address]2412 MCH (RBC) [Entitic mass] 32 27 - 33 pg Normal 08-23 [facility] ( 56476) Comment: Performed By: #### [id number] ## ## [facility],[address] [place] [address]774 MCHC (RBC) [Mass/Vol] 33 32 - 36 X10 3 Normal 08-23-20 19 [facility] ( 13653) Comment: Performed By: #### [id number] ## ## [facility],[address] [place] [address] 18599 MCV (RBC) [Entitic vol] 97 80 - 99 fl Normal 2018 [facility] ( 41915) Comment: Performed By: #### [id number] ## ## [facility],[address] [place] [address]186 Monocytes (Bld) 0.90 0.20 - 1.00 x10EE3/UL Normal 08-23-2019 Ken raine Fowler [#/Vol] [facility] (87305) Comment: Performed By: #### [id number] ## ## [facility],[address] [place] [address] MONOS % 7.0 0.0 - 10.0 % Normal 08-23-2019 [facility] (03676) Comment: Performed By: #### [id number] ## ## [facility],[address] [place] [address] 756[address] Morphology Herbert (Bld) [Interp] N/A Normal 08-23-2019 [facility] ( 22693) Comment: Performed By: #### [id number] ## ## [facility],[address] [place] [address]779 Neutrophils (Bld) 7.80 1.50 - 7.10 x10EE3/UL High 08-23-2019 [facility] [#/Vol] [facility] (40074) Comment: Performed By: #### [id number] ## ## [facility],[address] [place] [address] Neutrophils/100 WBC (Bld) 63.5 46.0 - 76.0 % Normal [facility] ( 77460) Comment: Performed By: #### [id number] ## ## [facility],[address] [place] [address] 76870 Platelet mean volume 9.0 6.6 - 10.5 fl Normal 08-23-20 19 [facility] (d) [Entitic vol] [facility] (73527) Comment: Result Comment: AUTOMATED DI FFERENTIAL Performed By: #### [id number] ## ## [facility],[address] [place] [address] 13100 Platelets (Bld) 357 150 - 450 x10EE3/UL Normal 08-23-2019 [facility] [#/Vol] [facility] (09471) Comment: Performed By: #### [id number] ## ## [facility],[address] [place] [address]67 RBC (Bld) [#/Vol] 4.29 4.10 - 5.30 x 10EE6/UL Normal 9 [facility] (45260) Comment: Performed By: #### [id number] ## ## [facility] [place] [facility],[address] [place] [address] WBC (Bld) [#/Vol] 12.3 4.5 - 10.8 x 10EE3/UL High 08-23-2019 [facility] ( 16901) Comment: Performed By: #### [id number] ## ## [facility],[address] [place] [address] emergency report on 2019-05-11 EMERGENCY REPORT [facility] Normal 05-11 [facility] EMERGENCY ROOM REPORT ([id number]) NAME ACCOUNT SEX AGE ADMIT DISCHARGE PT MED. RECORD# NUMBER DATE DATE TYPE CHANNING HARDING [id number] F 48 02/12/19 02/12/19 3 K [id number] ROOM: ER DATE OF : 1970 DICTATING PHYSICIAN: Mari Hardy HISTORY OF PRESENT ILLNESS: The patient is a 48-year-o ld female who presents for left eye swelling and an asthma flare. The patient states over the last 12- 24 hours she has noticed significant swelling and redness to the upper left eyelid. The patient states that she has also had some cough and congestion and states that she does have asthma. She has had to use h er asthma breathing treatment slightly more frequently. The patient states that she also developed some painful redness on her right buttock. The patient came to the ED f or evaluation. The patient does have a history of MRSA and came to the ED for evalu ation. The patient denies any nausea, vomiting or fevers. She has just felt somewhat u nwell. At this time, the patient has no other complaints. REVIEW OF SYSTEMS: Positive for left eye swelling, right buttock pain, and asthma exacerbation. PHYSICAL EXAMINATION: Constitutional: No acute distres s, alert and oriented, nontoxic-appearing. HEENT: N ormocephalic, atraumatic. PERRLA. EOMI. The patient does have significant erythe ma and edema noted to the upper left eyelid. It is not draining. It otherwise looks normal. Tympanic membranes are clear. Moist mucous membranes. Negative for jakob a, erythema, or exudative discharge in the posterior pharynx. Negative for uvular deviation or perito nsillar abscess. Negative for lymphadenopathy, tracheal de viation or meningeal signs. Cardiac: Regular rate and rhythm. Negative for murmurs , rubs or gallops. Positive S1, S2. Pulmonary: Clear to auscultation bilaterally. Ne gative for wheezes, rales or crackles. Abdomen: Soft, nontender and nondistended. Normal bowel sounds in all four quadrants. Negative for Lockett's or McBurney's. Nega tive for rigidity, guarding or distention. Musculoskeletal: Normal radial and DP pulses. Negative for lower extremity edema, ulcerations or skin breakdown. The patient does have a small erythematous lesion on the right buttock. It does look like a developing abscess. It is not fluctuant. I do not see any indication that we could I&D it at this time. DIAGNOSTIC DATA: The patient did have laboratory work obtained. WBC is 11.1, hemoglobin 13.7, hematocrit 40.7, and platelets 304,000. CMP is normal. MRSA screen of the nares is pending. The patient's chest x-ray was marnie l. EMERGENCY DEPARTMENT COURSE AND TREATMENT: At this time, thi s does appear to be a periorbital c ellulitis. The patient has full range of motion of her eyes. She has absolutely no pain when she does this, making a retro-orbital cellulitis less likely. It Page 1 of 2 CHANNING HARDING Emergency Room Report also looks as if the patient has a developing abscess on the right buttock. We are going to treat the patient with cl indamycin. We did give her an IV dose of 600 mg here in the Emergency Department. The pa denise was complaining of an increase in the use of her albuterol treatments at home ; thus, we did give her a dose of Decadron while here in the Emergency Department. Th e patient's lung sounds were clear, and her chest x-ray was normal. The patient does appear to have significant congestion, which may be causing some of her asthma f lare. At this time, I do not see any indication to admit the patient to the hospital. Her vital signs are otherwise unremarkable. Laboratory work looks well. Chest x-ray is n ormal. We are going to discharge the patient home. We are going to put her on clindamy renita 450 mg t.i.d. for the next 10 days and have her follow up with her primary care doc elyse. At this time, the patient is going to be discharged home. DIAGNOSES: 1. Left eye preseptal cellulitis. 2. Right buttock abscess. 3. Asthma exacerbation, resolved. Dictated By: Mari Hardy DO 02/12/19 10:15 JOB #: [id number] Transcribed By: dagoberto 02/13/19 11:13 Electronically signed by: MARI HARDY DO 05/11/19 07:23 Page 2 of 2 CHANNING HARDING Emergency Room Report cur on 2018-04-20 CUR . MICRO - MicrobiologyPROCEDURE: Normal 04-20-2018 [facility] Urine Culture [*1] ACCESSION: [facility] [place] ([place]) [phone]: Urine, Clean ([id number]) Catch BODY SITE:COLLECTED DATE/TIME: 04/17/2018 09:55 EDT RECEIVED DATE/TIME: 04/18/2018 15:04 EDTSTART DATE/TIME: 04/18/2018 15:05 EDT FREE TEXT SOURCE:FINAL REPORTSFinal Report []Verified Date/Time/Personnel: 04/20/2018 07:45 EDT50,000 organisms per mLMixed without predominant isolate(s). SensitivityTesting not indicated. Probably contamination. Repeatculture suggested.PRELIMINARY REPORTSPreliminary Report []Verified Date/Time/Personnel: 04/19/2018 07:57 EDTNo growth to datePerforming Locations*1: This test was performed at: [facility], [address] [place] [address], [id number]- , [facility] Comment: Performed By: #### CBC, ADIF F, ANEU, TROP, DIMER, PRISCILA, CMP, GFR, ACETA ####[address] [place], [place] [address] ct soft tissue neck w/ contrast on 2017-11-01 CT SOFT TISSUE ORIGINALCT SOFT TISSUE Normal [facility] NECK W/ CONTRAST NECK W/ CONTRAST [facility] ([place]) Statement: ENLARGED LYMPH (71326) NODES, CHRONIC SINUSITIS TECHNIQUE: Multiple-row detector helical CT examination of the neck with IV contrast. Nonionic intravenous contrast material was administered per standard departmental protocol. This exam was performed according to our departmental dose optimization program, and includes the following measures where applicable: automated exposure control, adjustment of the mAs and/or kVp according to patient size and/or exam, and an iterative reconstruction algorithm. COMPARISON: None. FINDINGS: The aerodigestive structures are within normal limits. Specifically, the nasal cavity, nasopharynx, oral cavity, oropharynx, hypopharynx, larynx, and visualized trachea and esophagus demonstrate no masses or abnormal enhancement. There are dystrophic calcifications within the right palatine tonsil. The remaining tonsils and adenoids are within normal limits. There are no pathologically enlarged, necrotic, or otherwise abnormal lymph nodes. The parotid and submandibular glands appear within normal limits. The thyroid gland is normal in size without focal abnormality. Evaluation of the visualized portions of brain parenchyma and orbits demonstrates no abnormality. The visible paranasal sinuses and tympanomastoid cavities are predominantly clear. There is normal intravascular enhancement. The innominate and left common carotid artery share an origin from the aortic arch, a normal variant. Limited evaluation of the lung apices demonstrates no abnormality. The visualized osseous structures are within normal limits. IMPRESSION: Normal CT of the neck with IV contrast. I have personally reviewed the images of this examination and agree with the resident's findings and interpretation. Interpreted By: Edgardo Kline MDPreliminary Report By: Maryam Avendaño DOElectronically Signed By: Edgardo Kline MD Dictated Date: 11/01/2017 2:21:55 PM Prelim Date: 11/01/2017 4:05:00 PM Sign Date: 11/01/2017 4:10:[address] sinus on 2017-10 CT SINUS ORIGINALCT SINUS, 11/01/2017 Normal [facility] 9:50 AM INDICATION: ENLARGED [facility] ([place]) ([address]09) LYMPHNODES, CHRONIC SINUSITIS COMPARISON: 03 May 2017 Technique: CT of the head through the paranasal sinuses with sagittal and coronal reconstructions. This exam was performed according to our departmental dose optimization program, and includes the following measures where applicable: automated exposure control, adjustment of the mAs and/or kVp according to patient size and/or exam, and an iterative reconstruction algorithm. FINDINGS: There is a small mucous retention cyst in the left maxillary sinus and another in the left sphenoid sinus. The frontal, ethmoid, right maxillary and right sphenoid sinuses are clear. The anterior ostiomeatal units, frontal sinus drainage pathways and sphenoethmoid recesses are patent. There is no thickening or sclerosis of any of the grimes of the paranasal sinuses. The septum is mildly deviated to the left. There is a paradoxical middle turbinate on the right. The orbital rims and the cribriform plate are intact. The visualized portion of the base of the brain is poorly evaluated here but no gross abnormalities are seen. IMPRESSION: minimal left ethmoid and left maxillary disease. No obstruction. Interpreted By: Edgardo Kline MDPreliminary Report By: Edgardo Kline MDElectronically Signed By: Edgardo Kline MD Dictated Date: 11/01/2017 2:17:37 PM Prelim Date: 11/01/2017 2:17:37 PM Sign Date: 11/01/2017 2:25:29 PM xr spine thoracic 2 views on 2017-05-03 XR SPINE THORACIC ORIGINALXR SPINE THORACIC Normal 05-03-2017 [facility] 2 VIEWS 3 VIEWS CLINICAL [facility] ([place]) STATEMENT: pain (000 00) COMPARISON: None FINDINGS: No acute fracture or subluxation. There are multilevel degenerative changes with disc space narrowing, endplate osteophyte formation and facet hypertrophy throughout. No acute osseous abnormality. IMPRESSION: No acute osseous abnormality. Multilevel degenerative changes. Interpreted By: Mellissa Rider MDPreliminary Report By: Mellissa Rider MDElectronically Signed By: Mellissa Rider MD Dictated Date: 05/03/2017 2:20:28 PM Prelim Date: 05/03/2017 2:20:28 PM Sign Date: 05/03/2017 2:23:16 PM xr spine cervical w/ obliques 5 views on 2017-05-03 XR SPINE CERVICAL ORIGINALXR SPINE CERVICAL Normal 05-03-2017 [facility] W/ OBLIQUES 5 W/ OBLIQUES 5 VIEWS [facility]) VIEWS CLINICAL STATEMENT: pain (25093) COMPARISON: None FINDINGS: The cervical spine is only visualized through C6. There is straightening of the normal cervical lordosis which may be related to patient positioning or muscle spasm. There is no acute fracture or subluxation. Mild degenerative changes with disc space narrowing and endplate osteophyte formation is seen at C4-C5 and C5-C6. Open-mouth odontoid views are within normal limits. Oblique views demonstrate the neural foramina to be patent. IMPRESSION: No acute osseous abnormality. Mild degenerative changes. Interpreted By: Mellissa Rider MDPreliminary Report By: Mellissa Rider MDElectronically Signed By: Mellissa Rider MD Dictated Date: 05/03/2017 2:15:52 PM Prelim Date: 05/03/2017 2:15:52 PM Sign Date: 05/03/2017 2:20:02 PM xr chest 2 views on 2017-05-03 XR CHEST 2 VIEWS ORIGINALXR CHEST 2 VIEWS Normal 05-03-2017 [facility] CLINICAL STATEMENT: [facility] [place]) mental status COMPARISON: ([id number]) Chest radiograph 04/12/2010 FINDINGS: The cardiomediastinal contours are stable. There is no consolidation, vascular congestion, pleural effusion, or pneumothorax. Degenerative changes are seen within the spine. IMPRESSION: No acute radiographic findings. Interpreted By: Mellissa Rider MDPreliminary Report By: Mellissa Rider MDElectronically Signed By: Mellissa Rider MD Dictated Date: 05/03/2017 2:12:55 PM Prelim Date: 05/03/2017 2:12:55 PM Sign Date: 05/03/2017 2:14:54 PM ua on 2017-05-03 UA Appear CLEAR Normal 05-03-2017 [facility]) ([id number]) Comment: Performed By: #### CBC, ADIF F, ANEU, TROP, DIMER, PRISCILA, CMP, GFR, ACETA ####[address] [place], [place] [address] UA Blood NEGATIVE Normal 05-03-2017 [facility] ([place]) ([id number]) Comment: Performed By: #### CBC, ADIF F, ANEU, TROP, DIMER, PRISCILA, CMP, GFR, ACETA ####Trang [address] [place], [place] [address] UA Leuk Est NEGATIVE Normal 05-03-2017 [facility] ([place]) ([id number]) Comment: Performed By: #### CBC, ADIF F, ANEU, TROP, DIMER, PRISCILA, CMP, GFR, ACETA ####Trang [address]qv[address]be[address] [place], [place] [address] UA Nitrite NEGATIVE Normal 05-03-2017 [facility]) ([id number]) Comment: Performed By: #### CBC, ADIF F, ANEU, TROP, DIMER, PRISCILA, CMP, GFR, ACETA ####Trang [address] [place], [place] [address] UA pH 6.0 Normal 05-03-2017 [facility]) ([id number]) Comment: Performed By: #### CBC, ADIF F, ANEU, TROP, DIMER, PRISCILA, CMP, GFR, ACETA ####[place] [address] [place] [address] UA Protein NEGATIVE Normal 05-03-2017 [facility] ([place]) ([id number]) Comment: Performed By: #### CBC, ADIF F, ANEU, TROP, DIMER, PRISCILA, CMP, GFR, ACETA ####[place] [address] [place], [place] [address] UA Spec Grav 1.025 Normal 05-03-2017 [facility]) ([id number]) Comment: Performed By: #### CBC, ADIF F, ANEU, TROP, DIMER, PRISCILA, CMP, GFR, ACETA ####[place] [address] [place] [address] UA Specimen Type Clean Catch Normal 05-03-2017 [facility] ([place]) ([id number]) Comment: Performed By: #### CBC, ADIF F, ANEU, TROP, DIMER, PRISCILA, CMP, GFR, ACETA ####Trang [address] [place], [place] [address] UA Urobilinogen 0.2 E.U./dL Normal 05-03-2017 [facility] ([place]) ([id number]) Comment: Performed By: #### CBC, ADIF F, ANEU, TROP, DIMER, PRISCILA, CMP, GFR, ACETA ####Trang Pbar[address]id[address] [place], [place] [address] Urine, color YELLOW Normal 05-03-2017 [facility]) ([id number]) Comment: Performed By: #### CBC, ADIF F, ANEU, TROP, DIMER, PRISCILA, CMP, GFR, ACETA ####Trang [address] [place], [place] [address] Urine, glucose NEGATIVE mg/dL Normal 05-03-2017 [facility] ([place]) ([id number]) Comment: Performed By: #### CBC, ADIF F, ANEU, TROP, DIMER, PRISCILA, CMP, GFR, ACETA ####Trang [address] [place], [place] [address] Urine, ketones presence NEGATIVE Normal 2016 [facility] ([place]) ([id number]) Comment: Performed By: #### CBC, ADIF F, ANEU, TROP, DIMER, PRISICLA, CMP, GFR, ACETA ####Trang [address] [place], [place] [address] Urine, urobilinogen NEGATIVE {Desirae'U}/dL Normal 05-03 [facility]) ([id number]) Comment: Performed By: #### CBC, ADIF F, ANEU, TROP, DIMER, PRISCILA, CMP, GFR, ACETA ####Trang [address] [place], [place] [address] trop on 2017-05-03 Troponin I.cardiac <0.30 0.00-0.30 ng/mL Normal 05-03-2017 [facility] ([place]) ([id number]) Comment: Result Comment: Below measur ing range>=0.30 Consistent with cardiac damage, increased clinical risk and possibility of myocardial infarction. Serial measurements, clinical histo ry, appropriate symptoms and/or ECG changes may help assess possibility of M I.*Other non-acute coronary syndrome conditions such as CHF, myocarditis, pu lmonary emboli, sepsis and cardiac surgery could result in myocardial damage and increased troponin levels. Performed By: #### CBC, ADIF F, ANEU, TROP, DIMER, PRISCILA, CMP, GFR, ACETA ####[address] [place], [place] [address] toxsc on 2017-05-03 QC TOXSC Valid Normal 05-03-2017 [facility] ([place]) ([id number]) Comment: Performed By: #### TOXSC ### #Trang [address] [place], [place] [address] U Ampheta (AO) Negative Normal 05-03-2017 [facility] ([place]) ([id number]) Comment: Performed By: #### TOXSC ### #Trang [address] [place], [place] [address] U Reshma (AO) Negative Normal 05-03-2017 [facility] ([place]) ([id number]) Comment: Performed By: #### TOXSC ### #Trang [address] [place], [place] [address] U Joseph (AO) Positive Normal 05-03-2017 [facility] ([place]) ([id number]) Comment: Performed By: #### TOXSC ### #Trang [address] [place], [place] [address] U Cannab (AO) Negative Normal 05-03-2017 [facility] ([place]) ([id number]) Comment: Performed By: #### TOXSC ### #Trang [address] [place], [place] [address] U Cocaine (AO) Negative Normal 05-03-2017 [facility] ([place]) ([id number]) Comment: Performed By: #### TOXSC ### #Trang F[address] [place], [place] [address] U Methadone (AO) Negative Normal 05-03-2017 [facility] ([place]) ([id number]) Comment: Performed By: #### TOXSC ### #Trang [address] [place], [place] [address] U PCP (AO) Negative Normal 05-03-2017 [facility] ([place]) ([id number]) Comment: Performed By: #### TOXSC ### #Trang [address]uzu[address] [place], [place] [address] U TCA (AO) Negative Normal 05-03-2017 [facility] ([place]) ([id number]) Comment: Performed By: #### TOXSC ### #Trang [address]wbazlha[address] [place], [place] [address] Urine Opiates (AO) Negative Normal 05-03-2017 [facility] ([place]) ([id number]) Comment: Performed By: #### TOXSC ### #Trang [address] [place], [place] [address] priscila on 2017-05-03 Salicylate Level <1.0 10.0-25.0 Low 05-03-2017 [facility] ([place]) ([id number]) Comment: Performed By: #### CBC, ADIF F, ANEU, TROP, DIMER, PRISCILA, CMP, GFR, ACETA ####Trang [address] [place], [place] [address] pregu on 2017-05-03 HCG ( test) (U) Negative Normal [facility] ([place]) (0000 0) Comment: Performed By: #### CBC, ADIF F, ANEU, TROP, DIMER, PRISCILA, CMP, GFR, ACETA ####[place] [address] [place], [place] [address] test HCG not Invalid 05-03-2017 [facility] () int detected. Interpretation [facility] ([place]) ([id number]) Comment: Performed By: #### CBC, ADIF F, ANEU, TROP, DIMER, PRISCILA, CMP, GFR, ACETA ####[place] [address] [place], [place] [address] patient summary documents on 2017-05-03 Patient Summary Documents Normal [facility] ([place]) ([id number]) [facility] note on 2017-05-03 [facility] Note Normal 0 05-03-2017 [facility] ([place]) ([id number]) [facility] Note Normal 0 05-03-2017 [facility] ([place]) ([id number]) gfr on 2017-05-03 GFR 101 ml/min/1.73sqm Normal 08 [facility] ([place]) (0000 0) Comment: Result Comment: GFR Populati on mean for , Non- Americans Ages 20-29 = 116 m L/min/1.73 sq.m. Ages 30-39 = 107 mL/min/1.73 sq.m. Ages 40-49 = 99 mL/min /1.73 sq.m. Ages 50-59 = 93 mL/min/1.73 sq.m. Ages 60-69 = 85 mL/min/1.73 sq.m. Ages 70+ = 75 mL/min/1.73 sq.m.Chronic Kidney Disease: Less than 60 mL/min/1.73 square metersEnd Stage Renal Disease: Less than 15 mL/min /1.73 square meters Performed By: #### CBC, ADIF F, ANEU, TROP, DIMER, PRISCILA, CMP, GFR, ACETA ####[place] [address] [place], [place] [address] GFR Non- >60 Normal 05-03 [facility] ([place]) ([id number]) Comment: Result Comment: GFR Populati on mean for , Non- Americans Ages 20-29 = 116 m L/min/1.73 sq.m. Ages 30-39 = 107 mL/min/1.73 sq.m. Ages 40-49 = 99 mL/min /1.73 sq.m. Ages 50-59 = 93 mL/min/1.73 sq.m. Ages 60-69 = 85 mL/min/1.73 sq.m. Ages 70+ = 75 mL/min/1.73 sq.m.Chronic Kidney Disease: Less than 60 mL/min/1.73 square metersEnd Stage Renal Disease: Less than 15 mL/min /1.73 square meters Performed By: #### CBC, ADIF F, ANEU, TROP, DIMER, PRISCILA, CMP, GFR, ACETA ####[place] [address] [place], [place] [address] dimer on 2017-05-03 Fibrin D-dimer FEU 0.23 <=0.49 mcg/mL FEU Normal 05-03-2017 [facility] ([place]) (0000 0) Comment: Result Comment: The result o f the D-Dimer test should be evaluated in the context of all the clinical and laboratory data available.In those instances where the laboratory result does not agree with the clinical evaluation, additional tests shouldbe pe rformed accordingly. Performed By: #### CBC, ADIF F, ANEU, TROP, DIMER, PRISCILA, CMP, GFR, ACETA ####[place] [address] [place], [place] [address] ct sinus on 2017-05 CT SINUS ORIGINALCT SINUS, 05/03/2017 Normal [facility] 2:12 PM INDICATION: headache [facility] ([place]) ([id number]) COMPARISON: No TECHNIQUE: CT of the head to the paranasal sinuses with sagittal and coronal reconstructions. This exam was performed according to our departmental dose optimization program, and includes the following measures where applicable: automated exposure control, adjustment of the mAs and/or kVp according to patient size and/or exam, and an iterative reconstruction algorithm. FINDINGS: The frontal, ethmoid, sphenoid and maxillary sinuses are clear. The anterior ostiomeatal units, frontal sinus drainage pathways and sphenoethmoid recesses are patent. There is mild septal deviation to the left. The orbital rims and cribriform plate are intact. IMPRESSION: Clear sinuses. No obstruction. Interpreted By: Edgardo Klinereliminary Report By: Edgardo Kline MDElectronically Signed By: Edgardo Kline MD Dictated Date: 05/03/2017 2:14:08 PM Prelim Date: 05/03/2017 2:14:08 PM Sign Date: 05/03/2017 2:15:[address] head or brain w/o contrast on 2017-05-03 CT HEAD OR BRAIN ORIGINALHead CT 05/03/2017 Normal 05-03-2017 [facility] W/O CONTRAST 1:54 PM INDICATION: [facility]) Altered mental status (57528) COMPARISON: No TECHNIQUE: Routine non-contrast head CT. This exam was performed according to our departmental dose optimization program, and includes the following measures where applicable: automated exposure control, adjustment of the mAs and/or kVp according to patient size and/or exam, and an iterative reconstruction algorithm. FINDINGS: The ventricles and sulci are normal in size and configuration. There is no shift of midline structures. There are no abnormal intra or extra-axial fluid collections. Duff-white matter differentiation is maintained. The orbital contents are normal in appearance. The paranasal sinuses and mastoid air cells are clear. The calvaria and the bones of the base of the skull are intact. IMPRESSION: Normal examination. Interpreted By: Edgardo Klinereliminary Report By: Edgardo Kline MDElectronically Signed By: Edgardo Kline MD Dictated Date: 05/03/2017 2:02:31 PM Prelim Date: 05/03/2017 2:02:31 PM Sign Date: 05/03/2017 2:03:19 PM cmp on 2017-05-03 Alanine aminotransferase (ALT) 49 10-35 ZZ High 05-03-2017 [facility] ([place]) (0000 0) Comment: Performed By: #### CBC, ADIF F, ANEU, TROP, DIMER, PRISCILA, CMP, GFR, ACETA ####[address] [place], [place] [address] Albumin 4.3 3.5-5.0 G/dL Normal 05-03-2017 [facility]) ([id number]) Comment: Performed By: #### CBC, ADIF F, ANEU, TROP, DIMER, PRISCILA, CMP, GFR, ACETA ####[address] [place], [place] [address] Albumin/Globulin Ratio 1.6 1.1-2.5 ratio Normal 017 [facility]) (0000 0) Comment: Performed By: #### CBC, ADIF F, ANEU, TROP, DIMER, PRISCILA, CMP, GFR, ACETA ####Tr[address] [place], [place] [address] Alk Phos 116 40-135 ZZ Normal 05-03-2017 [facility] ([place]) ([id number]) Comment: Performed By: #### CBC, ADIF F, ANEU, TROP, DIMER, PRISCILA, CMP, GFR, ACETA ####Tr[address] [place], [place] [address] Aspartate aminotransferase 26 10-40 ZZ Normal [facility] (AST) [facility] ([place]) (54483) Comment: Performed By: #### CBC, ADIF F, ANEU, TROP, DIMER, PRISCILA, CMP, GFR, ACETA ####Trang [address] [place], [place] [address] Bili Total 0.5 0.2-1.0 mg/dL Normal 05-03-2017 [facility] ([place]) ([id number]) Comment: Performed By: #### CBC, ADIF F, ANEU, TROP, DIMER, PRISCILA, CMP, GFR, ACETA ####Trang [address] [place], [place] [address] BUN/Creatinine Ratio 14 7-27 ratio Normal 05-03-201 7 [facility]) (49557) Comment: Performed By: #### CBC, ADIF F, ANEU, TROP, DIMER, PRISCILA, CMP, GFR, ACETA ####Trang [address] [place] [id number] Calcium 9.5 8.4-10.2 mg/dL Normal 05-03-2017 [facility]) (32551) Comment: Performed By: #### CBC, ADIF F, ANEU, TROP, DIMER, PRISCILA, CMP, GFR, ACETA ####Tr[address] [place] [address] Chloride 104 98-107 mEq/L Normal 05-03-2017 [facility]) ([id number]) Comment: Performed By: #### CBC, ADIF F, ANEU, TROP, DIMER, PRISCILA, CMP, GFR, ACETA ####Trang [address] [place] [id number] CO2 21 22-29 mEq/L Low 05-03-2017 [facility]) (75137) Comment: Performed By: #### CBC, ADIF F, ANEU, TROP, DIMER, PRISCILA, CMP, GFR, ACETA ####Tr[address] [place], [place] [address] Creatinine 0.8 0.6-1.2 mg/dL Normal 05-03-2017 [facility]) ([id number]) Comment: Performed By: #### CBC, ADIF F, ANEU, TROP, DIMER, PRISCILA, CMP, GFR, ACETA ####Tr[address] [place], [place] [address] Electrolyte Balance 12.0 mEq/L Normal 05-03-2017 [facility]) (12014) Comment: Performed By: #### CBC, ADIF F, ANEU, TROP, DIMER, PRISCILA, CMP, GFR, ACETA ####Trang [address] [place] [address] Globulin 2.7 G/dL Normal 05-03-2017 [facility]) (66814) Comment: Performed By: #### CBC, ADIF F, ANEU, TROP, DIMER, PRISCILA, CMP, GFR, ACETA ####Tr[address] [place], [place] [address] Glucose mass conc 123 70-105 mg/dL High 05-03-2017 [facility] ([place]) (69764) Comment: Performed By: #### CBC, ADIF F, ANEU, TROP, DIMER, PRISCILA, CMP, GFR, ACETA ####Tr[address] [place], [place] [address] Potassium molar conc 3.9 3.5-5.1 mEq/L Normal 7 [facility] ([place]) (0000 0) Comment: Performed By: #### CBC, ADIF F, ANEU, TROP, DIMER, PRISCILA, CMP, GFR, ACETA ####Trang [address] [place], [place] [address] Protein 7.0 6.0-8.3 G/dL Normal 05-03-2017 [facility] ([place]) ([id number]) Comment: Performed By: #### CBC, ADIF F, ANEU, TROP, DIMER, PRISCILA, CMP, GFR, ACETA ####Tr[address] [place], [place] [address] Sodium 137 136-146 mEq/L Normal 05-03-2017 [facility]) (50202) Comment: Performed By: #### CBC, ADIF F, ANEU, TROP, DIMER, PRISCILA, CMP, GFR, ACETA ####Trang [address] [place], [place] [address] Urea nitrogen 11.5 7.0-18.0 mg/dL Normal 05-03-2017 [facility] ([place]) (32518) Comment: Performed By: #### CBC, ADIF F, ANEU, TROP, DIMER, PRISCILA, CMP, GFR, ACETA ####[place] [address] [place], [place] [address] cbc on 2017-05-03 Erythrocyte distribution 13.0 11.5-14.5 % Normal 05-03 [facility] width Auto Ratio (RBC) [facility] (45920) Comment: Performed By: #### CBC, ADIF F, ANEU, TROP, DIMER, PRISCILA, CMP, GFR, ACETA ####Trang [address] [place], [place] [address] Erythrocytes (RBC) 4.50 4.20-5.40 10 6/mcL Normal 05-03-2017 [facility] ([place]) (66539) Comment: Performed By: #### CBC, ADIF F, ANEU, TROP, DIMER, PRISCILA, CMP, GFR, ACETA ####[place] [address] [place], [place] [address] Hematocrit (HCT) 43.2 37.0-47.0 % Normal 05-03-2017 [facility] ([place]) (65082) Comment: Performed By: #### CBC, ADIF F, ANEU, TROP, DIMER, PRISCILA, CMP, GFR, ACETA ####[place] [address] [place], [place] [address] Hemoglobin mass conc 14.7 12.0-16.0 G/dL Normal [address] [place] [address] ([facility]) (17429) Comment: Performed By: #### CBC, ADIF F, ANEU, TROP, DIMER, PRISCILA, CMP, GFR, ACETA ####[place] [address] [place], [place] [address] MCH 32.6 27.0-31.2 pg High 05-03-2017 [facility]) (48043) Comment: Performed By: #### CBC, ADIF F, ANEU, TROP, DIMER, PRISCILA, CMP, GFR, ACETA ####Tr[address] [place], [place] [address] MCHC mass conc (RBC) 34.0 33.0-37.0 G/dL Normal 7 [facility]) (0000 0) Comment: Performed By: #### CBC, ADIF F, ANEU, TROP, DIMER, PRISCILA, CMP, GFR, ACETA ####[address] [place], [place] [address] MCV 96.0 80.0-94.0 fL High 05-03-2017 [facility] ([place]) (38179) Comment: Performed By: #### CBC, ADIF F, ANEU, TROP, DIMER, PRISCILA, CMP, GFR, ACETA ####[place] [address] [place], [place] [address] Platelet mean volume 8.6 7.4-10.4 fL Normal 7 [facility] ([facility]) ([place]) (0000 0) Comment: Performed By: #### CBC, ADIF F, ANEU, TROP, DIMER, PRISCILA, CMP, GFR, ACETA ####Tr[address] [place], [place] [address] Platelets 281 130-400 10 3/mcL Normal 05-03-2017 [facility] ([place]) ([id number]) Comment: Performed By: #### CBC, ADIF F, ANEU, TROP, DIMER, PRISCILA, CMP, GFR, ACETA ####[place] [address] [place], [place] [address] WBC (Leukocytes) 7.50 4.60-10.80 10 3/mcL Normal 05-03-2017 A [facility] ([place]) (0000 0) Comment: Performed By: #### CBC, ADIF F, ANEU, TROP, DIMER, PRISCILA, CMP, GFR, ACETA ####[place] [address] [place], [place] [address] aceta on 2017-05-03 Acetaminophen mass conc <15.0 15.0-30.0 Low 2016 [facility] ([place]) (0000 0) Comment: Performed By: #### CBC, ADIF F, ANEU, TROP, DIMER, PRISCILA, CMP, GFR, ACETA ####Trang [address] [place], [place] [address] .urinalysis microscopic (ao) on 2017-05-03 UA Squam Epithelial 5-10 None Seen Abnormal 05-03-2017 [facility] (0000 0) Comment: Performed By: #### CBC, ADIF F, ANEU, TROP, DIMER, PRISCILA, CMP, GFR, ACETA ####Tr[address] [place], [place] [address] UA WBC None Seen None Seen Normal 05-03-2017 [facility]) ([id number]) Comment: Performed By: #### CBC, ADIF F, ANEU, TROP, DIMER, PRISCILA, CMP, GFR, ACETA ####Tr[address] [place], [place] [address] Urine, erythrocytes None Seen None Seen Normal 05-03-2017 [facility]) (0000 0) Comment: Performed By: #### CBC, ADIF F, ANEU, TROP, DIMER, PRISCILA, CMP, GFR, ACETA ####Tr[address] [place], [place] [address] .neuabs on Neutrophil, Absolute 4.20 2.85-6.16 10 3/mcL Normal 7 [facility]) ([id number]) Comment: Performed By: #### CBC, ADIF F, ANEU, TROP, DIMER, PRISCILA, CMP, GFR, ACETA ####[address] [place], [place] [address] .auto diff on 05-03 Basophils Auto #/vol 0.10 0.00-0.19 10 3/mcL Normal 7 [facility] ([facility]) (58164) Comment: Performed By: #### CBC, ADIF F, ANEU, TROP, DIMER, PRISCILA, CMP, GFR, ACETA ####Tr[address] [place], [place] [address] Basophils/100 WBC Auto (d) 1.4 0.0-2.5 % Normal 0 05-03-2017 [facility]) (0000 0) Comment: Performed By: #### CBC, ADIF F, ANEU, TROP, DIMER, PRISCILA, CMP, GFR, ACETA ####Trang[address]ard [address] [place], [place] [address] Eosinophils 0.30 0.00-0.40 10 3/[facility] Normal 05-03-2017 [facility]) (90447) Comment: Performed By: #### CBC, ADIF F, ANEU, TROP, DIMER, PRISCILA, CMP, GFR, ACETA ####Trang [address] [place], [place] [address] Eosinophils/100 leukocytes 4.2 0.0-7.0 % Normal [facility] ([place]) (0000 0) Comment: Performed By: #### CBC, ADIF F, ANEU, TROP, DIMER, PRISCILA, CMP, GFR, ACETA ####Tr[address] [place], [place] [address] Lymphocytes 2.40 0.77-3.85 10 3/[facility] Normal 05-03-2017 [facility] ([place]) (33686) Comment: Performed By: #### CBC, ADIF F, ANEU, TROP, DIMER, PRISCILA, CMP, GFR, ACETA ####Trang [address] [address] Lymphocytes/100 leukocytes 32.3 10.0-50.0 % Normal [facility] ([place]) (85244) Comment: Performed By: #### CBC, ADIF F, ANEU, TROP, DIMER, PRISCILA, CMP, GFR, ACETA ####Trang [address] [address] Monocytes 0.50 0.15-1.00 10 3/[facility] Normal 05-03-2017 [facility] ([place]) ([id number]) Comment: Performed By: #### CBC, ADIF F, ANEU, TROP, DIMER, PRISCILA, CMP, GFR, ACETA ####Trangelle [address] [place], [place] [address] Monocytes/100 leukocytes 6.0 1.7-13.0 % Normal 05-03 [facility] ([place]) (0000 0) Comment: Performed By: #### CBC, ADIF F, ANEU, TROP, DIMER, PRISCILA, CMP, GFR, ACETA ####Trang [address] [place], [place] [address] Neutrophils/100 WBC Auto 56.1 37.0-80.0 % Normal 05-03 [facility] ([place]) ([id number]) Comment: Performed By: #### CBC, ADIF F, ANEU, TROP, DIMER, PRISCILA, CMP, GFR, ACETA ####Trang [address] [place], [place] [address] Encounters Date Type Reason Provider Location 02-26-2020 - Emergency Pain in right elbow RIDDHI Thomas ALBERTODINORAH Ken watsonl [place] 02-26-2020 department patient RIDDHI Thomas ROME Wy morial visit [facility] (0000 0) TISH WINSTON UNKNOWN PROVIDER 01-21-2020 - Emergency Unspecified [facility] Elder carrillo 01-21-2020 department patient abdominal pain OLIVIER Thomas [facility] ([id number]) YENI WINSTON UNKNOWN PROVIDER 08-28-2019 - Emergency Lower abdominal FAINA MD Frankie kidd 08-28-2019 department patient pain, unspecified [facility] A [facility] (000 00) [facility] 08-23-2019 - Emergency FAINA MD Frankie Fowler 08-23-2019 department patient BALAJI-DREW EISENBERG [facility] orial visit [facility] ([phone]) [facility] UN[facility] PROVID[facility] 05-03-2017 - Emergency ARPAN QUIÑONES Facility:B 05-03-2017 department patient KAYLEE WINSTON visit 04-17-2018 - Patient encounter Hematuria, KAYLEE Borges ty:TRANG 04-22-2018 unspecified KAYLEE MCCULLOUGH 11-01-2017 - Patient encounter KAYLEE Borges ty:B 11-02-2017 KAYLEE WINSTON Procedures Procedure Name Date Provider Location Urinalysis 01-21-2020 [facility] ([id number]) Comment: Result Comment: URINALYSIS Performed By: #### [id number] ## ## [facility] [facility], [facility],[address] [place] [id number] Urinalysis 08-23-2019 [facility] ([id number]) Comment: Result Comment: URINALYSIS Performed By: #### [id number] ## ## [facility], [facility],[address] [place] [id number] Payers Payer Name Policy Number Location PRIVATE PAY [facility] ([id number]) SELF PAY [facility] [place] ([id number]) [id number] [facility] [place] ([id number]) [id number] [facility] ([id number]) Summary Purpose Family History No Family History Records FoundNo Family History Records Found Advance Directives No Advanced Directives Records FoundNo Advanced Directives Records Found Additional Source Comments FOR RECORDS PERTAINING TO PATIENTS WHO ARE OR HAVE BEEN ENROLLED IN A CHEMICAL DEPENDENCY/SUBSTANCE ABUSE PROGRAM, SOME INFORMATION MAY BE OMITTED. This clinical summary was aggregated from multiple sources. Caution should be exercised in using it in the provision of clinical care. This summary normalizes information from multiple sources, and as a consequence, information in this document may materially changethe coding, format and clinical context of patient data. In addition, data may be omittedin some cases. CLINICAL DECISIONS SHOULD BE BASED ON THE PRIMARY CLINICAL RECORDS. [facility] provides no warranty or guarantee of the accuracy or completeness of information in this document. UNRECOGNIZED CONTENT PROVIDED BELOW FOR UNRECOGNIZED SECTION INFORMATION SOURCE DATE CREATED AUTHOR AUTHOR'S ORGANIZATIO N 04/23/2018 [facility] ([place]) DATE CREATED AUTHOR AUTHOR'S ORGANIZATIO N 03/15/2020 [facility]
--- OUTSIDE RECORDS SUMMARY | 2020-07-20 09:20 | XMS RPT_ITS | CCD ---
:1970 External Reference #:[id number] Author Organization [facility] Team Providers Name Role Phone Belia [...] Onset Location 11/03/17 (+) MRSA SCREEN Unknown [facility] Translations: [ 11/03/17 Hos pital Repository (+) MRSA SCREEN] 01/21/20 (+) MRSA SCREEN Unknown [facility] Translations: [ Hospit al Repository 01/21/20 (+) MRSA SCREEN NARES] 02/13/2019 (+) MRSA Unknown [facility] Reposi tory Translations: [ 02/13/2019 (+) MRSA SCREEN NARES] 08/25/19 (+) MRSA WOUND Unknown [facility] Translations: [facility]] Problems Active Problems Category Problem Name Status Date Location Abdominal pain Unspecified abdominal Active 08-28-2019 - Frankie Fowler pain [facility] Hospit [facility] (83332) Genitourinary symptoms Hematuria, unspecified Active 04-17-20 18 - [facility] and ill-defined [facility] ( [place]) conditions (46874) Other non-traumatic Pain in right elbow Active 02-26-2020 - J oel Pomerene joint disorders [facility] pital (26092) Substance-related Nicotine dependence, Active 01-21-2020 - Bing el Pomerene disorders cigarettes, [facility] Hospit al uncomplicated (67924) Past or Other Problems Category Problem Name Status Date Location Urinary tract Urinary tract Completed 08-23-2019 - [facility] infections infection, site not [facility] specified (32693) Results Result Name Value Range Unit Interpretation Flag Date Location emergency report on 2020-03-15 EMERGENCY REPORT [facility] Normal 03-15 [facility] H ospital EMERGENCY ROOM REPORT ([id number]) NAME ACCOUNT SEX AGE ADMIT DISCHARGE PT MED. RECORD# NUMBER DATE DATE TYPE CHANNING HARDING [id number] F 49 02/26/20 02/26/20 3 K 11485 ROOM: ER DATE OF : 1970 DICTATING [...] Riddhi Guzman DO 03/13/20 10:19 JOB #: [id number] Transcribed By: am 03/13/20 17:06 Electronically signed by: E-Sign: RIDDHI GUZMAN MD 03/15/20 09:26 Page 2 of 2 CHANNING HARDING Emergency Room Report emergency report on 2020-02-28 EMERGENCY REPORT [facility] Normal 02-27 [facility] ospital EMERGENCY ROOM REPORT ([id number]) NAME ACCOUNT SEX AGE ADMIT DISCHARGE PT MED. RECORD# NUMBER DATE DATE TYPE CHANNING HARDING [id number] F 49 02/26/20 02/26/20 3 K 40816 ROOM: ER DATE OF : 1970 DICTATING [...] Riddhi Guzman DO 02/26/20 18:27 JOB #: [id number] Transcribed By: am 02/27/20 15:18 Electronically signed by: E-Sign: RIDDHI GUZMAN MD 02/28/20 13:36 Page 2 of 2 CHANNING HARDING Emergency Room Report emergency report on 2020-01-24 EMERGENCY REPORT [facility] Normal 01-23 [facility] ospital EMERGENCY ROOM REPORT ([id number]) NAME ACCOUNT SEX AGE ADMIT DISCHARGE PT MED. RECORD# NUMBER DATE DATE TYPE CHANNING HARDING [id number] F 49 01/21/20 01/21/20 3 K 43780 ROOM: ER DATE OF : 1970 DICTATING [...] Edison Aguayo MD 01/21/20 12:00 JOB #: [id number] Transcribed By: dagoberto 01/21/20 13:00 Electronically signed by: JAMES Aguayo M.D. 01/24/20 07:45 Page 2 of 2 CHANNING HARDING Emergency Room Report urinalysis on 01-20 Amorphous NONE Normal 01-21-2020 [facility] (37827) Comment: Performed By: #### [id number] ## ## [facility] [place],[address] [facility],[place] [address] Bacteria LM.HPF (Urine sed) 1+ Normal [facility] [#/Area] [facility] ( 09198) Comment: Performed By: #### [id number] ## ## [facility] [place] [facility],[address] [facility] [place] [address] Bilirubin [Mass/Vol] NEG NORMAL: NEGATIVE mg/dL Normal [facility] ospital (55905) Comment: Performed By: #### [id number] ## ## [facility],[address] [facility] [address] Blood NEG NORMAL: NEGATIVE Normal 01-21-2020 [facility] (32591) Comment: Performed By: #### [id number] ## ## [facility],[address] [facility] [place] [address] Casts LM.LPF (Urine sed) NONE Normal 01-20 [facility] [#/Area] [facility] ( 11535) Comment: Performed By: #### [id number] ## ## [facility] [place] [facility],[address] [facility] [place] [address] Clarity (U) clear NORMAL: CLEAR Normal 01-21-2020 [facility] (99700) Comment: Performed By: #### [id number] ## ## [facility] [place] [facility],[address] [facility] [address] Color (U) ebenezer NORMAL: YELLOW Normal 01-21-2020 [facility] (86322) Comment: Performed By: #### [id number] ## ## [facility] [place] [facility],[address] [facility] [place] [address] Crystals LM Nom (Urine sed) NONE Normal [facility] ( 40435) Comment: Performed By: #### [id number] ## ## [facility] [place],[address] [place] [address] Epi Cells OCC Normal 01-21-2020 [facility] (97706) Comment: Performed By: #### [id number] ## ## [facility] [place],[address] [place] [address] 22456 Glucose [Mass/Vol] NORM NORMAL: NORMAL Normal 2019 [facility] ( 03419) Comment: Performed By: #### [id number] ## ## [facility] [place],[address] [place] [address] 45291 Ketone NEG NORMAL: NEGATIVE Normal 01-21-2020 [facility] (14054) Comment: Performed By: #### [id number] ## ## [facility] [place],[address] [place] [address] 60372 Microscopic SEE BELOW Normal 01-21-[address] [facility] (32279) Comment: Result Comment: MICROSCOPIC Performed By: #### [id number] ## ## [facility] [place],[address] [place] [address]65[address] Mucous 1+ Normal 01-21-2020 [facility] (16604) Comment: Performed By: #### [id number] ## ## [facility] [place],[address] [place] [address] 06786 Nitrite Ql (U) NEG NORMAL: NEGATIVE Normal 01-21-20 [facility] ( 83246) Comment: Performed By: #### [id number] ## ## [facility] [place],[address] [place] [address] 57839 pH (Bld) 5 NORMAL: 5.0-8.0 Normal 01-21-2020 [facility] (53655) Comment: Performed By: #### [id number] ## ## [facility] [place],[address] [place] [address] 52793 Protein (U) NEG NORMAL: NEGATIVE mg/dL Normal 01-21-2020 [facility] [Mass/Vol] [facility] (34843) Comment: Performed By: #### [id number] ## ## [facility],[address] [place] [address] 21383 Rbc NONE 0-3/hpf Normal 01-21-2020 [facility] (97410) Comment: Performed By: #### [id number] ## ## [facility],[address] [place] [address] Sp [place] 1.030 NORMAL: 1.010-1.030 Normal 0 [facility] ( 87661) Comment: Performed By: #### [id number] ## ## [facility],[address] [place], [place] [address] Specimen type Nom (Spec) UNSPECIFIED Normal [facility] ( 75069) Comment: Performed By: #### [id number] ## ## [facility],[address] [place], [place] [id number] Urobilinog NORM NORMAL: NORMAL Normal 01-21-2020 [facility] (54773) Comment: Performed By: #### [id number] ## ## [facility],[address] [place], [place] [id number] Wbc 1-5 0-5/hpf Normal 01-21-2020 [facility] (28157) Comment: Performed By: #### [id number] ## ## [facility],[address] [place], [place] [id number] WBC (Bld) [#/Vol] 25 NORMAL: NEGATIVE Abnormal 01-20 [facility] ( 47665) Comment: Performed By: #### [id number] ## ## [facility],[address] [place] [address] 55620 Yeast LM Ql (Urine sed) NONE Normal 2019 [facility] (21757) Comment: Performed By: #### [id number] ## ## [facility],[address] [place] [address] 28849 mrsa screen nares o n 2020-01-21 MRSA SCREEN NARES MRSA SCREEN Normal 01-21-2020 [facility] ospital CALLED TO/BY (16636) KITA/MICHAEL [id number] Methicillin resistant Staphylococcus aur eus is a [...] of infectio n. Comment: Performed By: #### [id number] ## ## [facility],[address] [place] [address] kub (kidney stone protocol) on 2020-01-21 CT KUB (KIDNEY [facility] Normal 020 [facility] STONE PROTOCOL) [address] [address] (57079) Patient: CHANNING HARDING Phone#: : 1970 Age: 49 Gender: F Pt. Type: ER Account: [id number] Location: [facility] Ordering: EDISON AGUAYO Exam Date: 01/21/2020/8:46 Family Phys: YENI WINSTON Charge Code: 674531 Physician: [place] Order #: [id number] DLP Dose#: 20.0 mGy PROCEDURE: CT ABDOMEN AND PELVIS WITHOUT CONTRAST COMPARISON: [facility], CT, ABDOMEN/PELVIS W CON, 08/28/2019, 6:00. [facility], CT, KUB W/O CON, 08/23/2019, 6:32. INDICATIONS: [...] 49 Gender: F Pt. Type: ER Account: [id number] Location: 052 Ordering: EDISON AGUAYO Exam Date: 01/21/2020/8:46 Family Phys: YENI WINSTON Charge Code: [id number] Physician: [place] Order #: [id number] DLP Dose#: 20.0 mGy PELVIC ORGANS: The [...] Age - Reported 49 years Normal 01-21-2020 [facility] (43844) Comment: Performed By: #### [id number] ## ## [facility] [place],[address] [facility] [address] Albumin [Mass/Vol] 3.7 3.4 - 4.8 g/dL Normal 01-21-2020 [facility] ( 87579) Comment: Performed By: #### [id number] ## ## [facility] [place],[address] [facility] [address] Albumin/Globulin [Mass 1.3 0.9 - 1.6 {ratio} Normal [facility]] [facility] (82223) Comment: Performed By: #### [id number] ## ## [facility] [place],[address] [place] [address] ALK PHOS 95 38 - 126 U/L Normal 01-21-2020 [facility] (76135) Comment: Performed By: #### [id number] ## ## [facility] [place],[address] [place] [address] 55791 ALT/SGPT 18 8 - 35 U/L Normal 01-21-2020 [facility] (51297) Comment: Performed By: #### [id number] ## ## [facility] [place],[address] [place] [address] 43870 Anion gap [Moles/Vol] 14 10 - 20 mmol/L Normal 01-21-20 [facility] ( 94300) Comment: Performed By: #### [id number] ## ## [facility] [place],[address] [place] [address] 25526 AST/SGOT 15 13 - 39 U/L Normal 01-21-2020 [facility] (01324) Comment: Performed By: #### [id number] ## ## [facility] [place],[address] [place] [address] 85596 B/C RATIO 16 0 - 30 ratio Normal 01-21-2020 [facility] (99424) Comment: Performed By: #### [id number] ## ## [facility] [place],[address] [facility] [address] Bilirubin [Mass/Vol] 0.4 0.0 - 1.5 mg/dl Normal 0 [facility] ( 06736) Comment: Performed By: #### [id number] ## ## [facility] [place],[address] [place] [address] 57586 Calcium [Mass/Vol] 9.0 8.6 - 10.2 mg/dl Normal 01-21-2020 [facility] ( 03290) Comment: Performed By: #### [id number] ## ## [facility],[address] [place] [address] 57272 Chloride [Moles/Vol] 106 98 - 107 mmol/L Normal 0 [facility] ( 05886) Comment: Performed By: #### [id number] ## ## [facility] [place] [facility],[address] [place] [address] 07418 CO2 [Moles/Vol] 23.5 21.0 - 31.0 mmol/L Normal 01-21-2020 [facility] ( 57394) Comment: Performed By: #### [id number] ## ## [facility],[address] [place] [address] 48556 Creatinine [Mass/Vol] 0.7 0.6 - 1.2 mg/dl Normal 01-21-20 20 [facility] ( 85409) Comment: Performed By: #### [id number] ## ## [facility],[address] [place] [address] 72338 GFR/1.73 sq M >60 60 - 999 mL/min/{1.73_m2} Normal 0 [facility] non-blacks MDRD (000 00) (S/P/Bld) [Vol rate/Area] [...] OF AGE AND OLDER. Performed By: #### [id number] ## ## [facility],[address] [place] [address] 21565 GFR/1.73 sq M predicted among Normal 01-21-2020 [facility] non-blacks MDRD (S/P/Bld) [Vol Hospital (96322) rate/Area] Comment: Result Comment: COMPREHENSIV E METABOLIC PANEL Performed By: #### [id number] ## ## [facility],[address] [place] [address] 82188 Globulin (S) [Mass/Vol] 2.8 1.5 - 3.8 G/DL Normal 2019 [facility] ( 92152) Comment: Performed By: #### [id number] ## ## [address] [place] [address] Glucose [Mass/Vol] 139 74 - 106 mg/dl High 01-21-2020 [facility] (78833) Comment: Performed By: #### [id number] ## ## [address] [address] Potassium [Moles/Vol] 4.0 3.5 - 5.1 mmol/L Normal 01-21-20 [facility] ( 74794) Comment: Performed By: #### [id number] ## ## [address] [place] [address] Protein [Mass/Vol] 6.5 6.4 - 8.3 g/dl Normal 01-21-2020 [facility] ( 24486) Comment: Performed By: #### [id number] ## ## [address] [place] [address] Sodium [Moles/Vol] 139 136 - 145 mmol/l Normal 01-21-2020 [facility] ( 06341) Comment: Performed By: #### [id number] ## ## [facility],[address] [place] [address] 66481 Urea nitrogen [Mass/Vol] 11 6 - 20 mg/dl Normal 01-20 [facility] ( 96254) Comment: Performed By: #### [id number] ## ## [facility],[address] [place] [address] 15238 cbc + diff on 01-20 Basophils (Bld) 0.10 0.00 - 0.10 x10EE3/UL Normal 01-21-2020 [facility] [#/Vol] [facility] (08813) Comment: Performed By: #### [id number] ## ## [facility],[address] [place] [address] 52307 Basophils/100 WBC (Bld) 1.1 0.0 - 2.0 % Normal 2019 [facility] ( 50514) Comment: Performed By: #### [id number] ## ## [facility],[address] [place] [address] 99147 CBC + DIFF Normal 01-21-2020 [facility] (45007) Comment: Result Comment: CBC-COMPLETE BLOOD COUNT Performed By: #### [id number] ## ## [facility],[address] [place] [address] 58248 Eosinophils (Bld) 0.70 0.00 - 0.50 x10EE3/UL High 01-21-2020 [facility] [#/Vol] [facility] (64193) Comment: Performed By: #### [id number] ## ## [facility],[address] [place] [address] 17803 Eosinophils/100 WBC (Bld) 6.0 0.0 - 7.0 % Normal 01-02 [facility] ( 49379) Comment: Performed By: #### [id number] ## ## [facility] [place] [facility],[address] [place] [address] 55683 Erythrocyte distribution 13.3 12.0 - 15.6 % Normal [facility] (RBC) [Ratio] Hospital (02484) Comment: Performed By: #### [id number] ## ## [facility],[address] [place] [address] 13314 Hematocrit (Bld) [Volume 43.2 34.0 - 46.0 % Normal [facility] ( 09085) Comment: Performed By: #### [id number] ## ## [facility],[address] [place] [address] 20749 Hemoglobin (Bld) 14.7 12.0 - 16.0 g/dl Normal 01-21-2020 [facility] [Mass/Vol] [facility] (30373) Comment: Performed By: #### [id number] ## ## [facility],[address] [place] [address] 13871 Lymphocytes (Bld) 3.00 0.80 - 2.80 x10EE3/UL High 01-21-2020 [facility] [#/Vol] [facility] ospital (83567) Comment: Performed By: #### [id number] ## ## [facility],[address] [place] [address] 02702 Lymphocytes/100 WBC (Bld) 26.9 20.0 - 45.0 % Normal [facility] ( 47632) Comment: Performed By: #### [id number] ## ## [facility],[address] [place] [address] 99768 MANUAL DIFF N/A Normal 01-21-[address] [facility] (01089) Comment: Performed By: #### [id number] ## ## [facility],[address] [place] [address] 53442 MCH (RBC) [Entitic mass] 33 27 - 33 pg Normal 01-20 [facility] ( 22316) Comment: Performed By: #### [id number] ## ## [facility],[address] [place] [address] 01344 MCHC (RBC) [Mass/Vol] 34 32 - 36 X10 3 Normal 01-21-20 [facility] ( 31342) Comment: Performed By: #### [id number] ## ## [facility],[address] [place] [address] 33224 MCV (RBC) [Entitic vol] 97 80 - 99 fl Normal 2019 [facility] ( 42178) Comment: Performed By: #### [id number] ## ## [facility],[address] [place] [address] 60186 Monocytes (Bld) 0.90 0.20 - 1.00 x10EE3/UL Normal 01-21-2020 [facility] [#/Vol] [facility] (20175) Comment: Performed By: #### [id number] ## ## [facility],[address] [place] [address] 61213 MONOS % 7.8 0.0 - 10.0 % Normal 01-21-2020 [facility] (58613) Comment: Performed By: #### [id number] ## ## [facility],[address] [place] [address] 23979 Morphology Herbert (Bld) [Interp] N/A Normal 01-21-2020 [facility] ( 27646) Comment: Performed By: #### [id number] ## ## [facility] [place] [facility],[address] [place] [address] 09278 Neutrophils (Bld) 6.50 1.50 - 7.10 x10EE3/UL Normal 01-21-2020 [facility] [#/Vol] [facility] (71598) Comment: Performed By: #### [id number] ## ## [facility] [place] [facility],[address] [place] [address] 94002 Neutrophils/100 WBC (Bld) 58.2 46.0 - 76.0 % Normal [facility] ( 82526) Comment: Performed By: #### [id number] ## ## [facility],[address] [place] [address] 47291 Platelet mean volume 8.4 6.6 - 10.5 fl Normal 01-21-[address] [facility] (Bld) [Entitic vol] Hospital (26596) Comment: Result Comment: AUTOMATED DI FFERENTIAL Performed By: #### [id number] ## ## [facility],[address] [place] [address] 27151 Platelets (Bld) 365 150 - 450 x10EE3/UL Normal 01-21-2020 [facility] [#/Vol] [facility] ospital (18793) Comment: Performed By: #### [id number] ## ## [facility],[address] [place] [address] 24931 RBC (Bld) [#/Vol] 4.46 4.10 - 5.30 x 10EE6/UL Normal 0 [facility] (45352) Comment: Performed By: #### [id number] ## ## [facility],[address] [place] [address] 94892 WBC (Bld) [#/Vol] 11.2 4.5 - 10.8 x 10EE3/UL High 01-21-2020 [facility] ( 48814) Comment: Performed By: #### [id number] ## ## [facility],[address] [place] [address] 03122 c-reactive protein on 2020-01-21 CRP [Mass/Vol] 0.35 0.00 - 1.00 mg/dl Normal 01-21-2020 [facility] ( 66555) Comment: Performed By: #### [id number] ## ## [facility],[address] [place] [address] 48594 emergency report on 2019-09-08 EMERGENCY REPORT [facility] Normal 09-08 [facility] EM[facility] REPORT (78585) NAME ACCOUNT SEX AGE ADMIT DISCHARGE PT MED. RECORD# NUMBER DATE DATE TYPE CHANNING HARDING [id number] F 48 08/28/19 08/28/19 3 K 95391 ROOM: ER DATE OF : 1970 DICTATING [...] I gave her a family doctor and PHYSICAL BIOCHEMIST to follow up with. Sh e is to return for increasing, worsening, or new symptoms. Dictated By: Riddhi Guzman DO 08/28/19 08:51 JOB #: [id number] Transcribed By: am 08/28/19 16:20 Electronically signed by: E-Sign: RIDDHI GUZMAN MD 09/08/19 08:14 Page 1 of 2 MEAGHAN CHANNING Mikey Emergency Room Report emergency report on 2019-09-03 EMERGENCY REPORT [facility] Normal 09-03 [facility] EM[facility]Y [facility] REPORT (96506) NAME ACCOUNT SEX AGE ADMIT DISCHARGE PT MED. RECORD# NUMBER DATE DATE TYPE CHANNING HARDING [id number] F 48 08/28/19 08/28/19 3 K 37486 ROOM: ER DATE OF : 1970 DICTATING [...] Faina Ford MD 08/28/19 07:03 JOB #: [id number] Transcribed By: am 08/28/19 14:09 Electronically signed by: Cory Eisenberg MD 09/03/19 20:19 Page 2 of 2 CHANNING HARDING Emergency Room Report gc/chlam amplification swab [ccl] on 2019-08-30 Chlamydia Amplif Negative for Chlamydia Normal 08-30-2019 [facility] trachomatis by [facility] amplification. (0000 0) Comment: Result Comment: [facility] [address] [place] [address] Yaritza Curiel M.D. [id number] Performed By: #### [id number] ## ## [facility],[address] [place] [address] 89309 GC Amplification Negative for Neisseria Normal 08-30-2019 [facility] gonorrhoeae by [facility] amplification. (0000 0) Comment: Performed By: #### [id number] ## ## [facility],[address] [place] [address] 47644 GC/Chlam Amp Source . Normal 08-30-2019 [facility] (71326) Comment: Performed By: #### [id number] ## ## [facility],[address] [place] [address] 77900 wet prep trichomonas on 2019-08-28 WET PREP TRICHOMONAS WET PREP TRICHOMONAS Normal 08-28-2019 [facility] WET PREP TRICHOMONAS [facility] WET PREP: (49936) No Trich. seen Comment: Performed By: #### [id number] ## ## [facility],[address] [place] [address] 19671 us pelvic endo vaginal on 2019-08-28 US PELVIC [facility] Normal 019 [facility] ospital [address] [place], [place] [address] (51430) Patient: CHANNING HARDING Phone#: : 1970 Age: 48 Gender: F Pt. Type: ER Account: [id number] Location: 052 Ordering: DR. FAINA FORD Exam Date: 08/28/2019/7:45 Family Phys: YENI WINSTON Charge Code: [id number] Physician: [place] Order #: [id number] P Dose#: PROCEDURE: PELVIC (NON OB) LIMITED [...] ob) limited on 2019-08-28 PELVIC (NON OB) [facility] Normal [facility] ospital [address] [place], [place] [address] (91538) Patient: CHANNING HARDING Phone#: : 1970 Age: 48 Gender: F Pt. Type: ER Account: [id number] Location: 052 Ordering: DR. FAINA FORD Exam Date: 08/28/2019/7:45 Family Phys: YENI WINSTON Charge Code: [id number] Physician: [place] Order #: [id number] DLP Dose#: PROCEDURE: PELVIC (NON OB) LIMITED [...] microscopy on 2019-08-28 Amorphous NONE Normal 08-28-2019 [facility] (79216) Comment: Performed By: #### [id number] ## ## [place] [address] Bacteria LM.HPF (Urine sed) NONE Normal [facility] [/Area] [facility] ( 82221) Comment: Performed By: #### [id number] ## ## [facility],[address] [place] [address] Bilirubin [Mass/Vol] NEG NORMAL: NEGATIVE mg/dL Normal [facility]ital (75968) Comment: Performed By: #### [id number] ## ## [place] [address] Blood 10 NORMAL: NEGATIVE Abnormal 08-28-2019 [facility] (57013) Comment: Performed By: #### [id number] ## ## [address],[place] [address] Casts LM.LPF (Urine sed) NONE Normal 08-28 [facility] [/Area] [facility] ( 92337) Comment: Performed By: #### [id number] ## ## [facility] [place] [facility],[address] [place] [address] 90177 Clarity (U) clear NORMAL: CLEAR Normal 08-28-2019 [facility] (89550) Comment: Performed By: #### [id number] ## ## [facility] [place] [facility],[address] [place] [address] 62494 Color (U) p.yel NORMAL: YELLOW Normal 08-28-2019 [facility] (79484) Comment: Performed By: #### [id number] ## ## [facility],[address] [place] [address] 26994 Crystals LM Nom (Urine sed) NONE Normal [facility] ( 72916) Comment: Performed By: #### [id number] ## ## [facility],[address] [place] [address] 90527 Epi Cells OCC Normal 08-28-2019 [facility] (23998) Comment: Performed By: #### [id number] ## ## [facility],[address] [place] [address] 71544 Glucose [Mass/Vol] NORM NORMAL: NORMAL Normal 2018 [facility] ( 14664) Comment: Performed By: #### [id number] ## ## [facility] [place] [facility],[address] [place] [address] 57978 Ketone NEG NORMAL: NEGATIVE Normal 08-28-2019 [facility] (84093) Comment: Performed By: #### [id number] ## ## [facility] [place] [facility],[address] [place] [address] 76732 Mucous NONE Normal 08-28-2019 [facility] (05703) Comment: Performed By: #### [id number] ## ## [facility],[address] [place] [address] 06160 Nitrite Ql (U) NEG NORMAL: NEGATIVE Normal 08-28-20 19 [facility] ( 16458) Comment: Performed By: #### [id number] ## ## [facility] [place] [facility],[address] [place] [address] 32110 pH (Bld) 5 NORMAL: 5.0-8.0 Normal 08-28-2019 [facility] (21022) Comment: Performed By: #### [id number] ## ## [facility] [place] [facility],[address] [place] [address] 78427 Protein (U) 15 NORMAL: NEGATIVE mg/dL Abnormal 08-28-2019 [facility] [Mass/Vol] [facility] (55613) Comment: Performed By: #### [id number] ## ## [facility],[address] [place] [address] 07939 Rbc 0-5 0-3 / hpf Normal 08-28-2019 [facility] (18023) Comment: Performed By: #### [id number] ## ## [facility],[address] [place] [address] 10269 Sp [place] 1.020 NORMAL: 1.010-1.030 Normal 9 [facility] ( 20487) Comment: Performed By: #### [id number] ## ## [facility] [place] [facility],[address] [place], [place] [id number] Specimen type Nom (Spec) R Normal 08-28 [facility] (78359) Comment: Performed By: #### [id number] ## ## [facility] [place] [facility],[address] [place] [address] 50462 URINALYSIS WITH MICROSCOPY Normal [facility] (78420) Comment: Result Comment: URINALYSIS Performed By: #### [id number] ## ## [facility] [place] [facility],[address] [place] [address] 59843 Urobilinog NORM NORMAL: NORMAL Normal 08-28-2019 [facility] (22924) Comment: Performed By: #### [id number] ## ## [facility],[address] [place] [address] 46694 Wbc NONE 0-5 / hpf Normal 08-28-2019 [facility] (60355) Comment: Performed By: #### [id number] ## ## [facility],[address] [place] [address] 70844 WBC (Bld) [#/Vol] NEG NORMAL: NEGATIVE 10*3/uL Normal 08-28 [facility] (13821) Comment: Result Comment: URINE MICROS COPIC Performed By: #### [id number] ## ## [facility],[address] [place] [address] 94691 Yeast LM Ql (Urine sed) NONE Normal 2018 [facility] (04645) Comment: Performed By: #### [id number] ## ## [facility],[address] [place] [address] 24699 culture genital tract on 2019-08-28 CULTURE CULTURE GENITAL TRACT Normal 08-28-20 19 [facility] GENITAL _GENITAL TRACT CULTURE_ [place] TRACT M I C R O B I O L O G Y R E P O R T FINAL [facility] ----- Antimicrobial Susceptibility and Organism Identification Report Hospital Specimen Number : [id number] Requested : 08/28/19 (73479) Specimen Source : GENITAL TRACT Collected : 08/28/19 06:30 [place] of Isolation : Emergency Room Received : 08/28/19 06:30 Requesting Physician : BHAVANA Patient/Specimen Tests and Comments Specimen Comments --------- FINAL REPORT: NORMAL VAGINAL RENÉ NO PATHOGENS PRESENT Tech : Source : GENITAL TRACT ID # : [id number] FINAL Report Date : / / : Collected : 08/28/19 06:30 08/30/19.1049.KLS. 08/29/19.0854.BKO. 08/30/19.1049.KLS.COMPLETE Comment: Performed By: #### [id number] ## ## [facility],[address] [place] [address] abdomen/pelvis w on 2019-08-28 CT ABDOMEN/PELVIS W [facility] Normal [facility] [address] [place] [address]06 ([id number]) Patient: CHANNING HARDING Phone#: : 1970 Age: 48 Gender: F Pt. Type: ER Account: [id number] Location: 052 Ordering: DR. FAINA FORD Exam Date: 08/28/2019/6:00 Family Phys: YENI WINSTON Charge Code: 884045 Physician: [place] Order #: [id number] DLP Dose#: 29.20 PROCEDURE: CT ABDOMEN/PELVIS WITH CONTRAST COMPARISON: [facility], CT, ABDOMEN/PELVIS W CON, 10/05, 19:09. INDICATIONS: [...] 48 Gender: F Pt. Type: ER Account: [id number] Location: 052 Ordering: DR. FAINA FORD Exam Date: 08/28/2019/6:00 Family Phys: YENI WINSTON Charge Code: 432992 Physician: [place] Order #: [id number] DLP Dose#: 29.20 PELVIC ORGANS: An IUD [...] Age - Reported 48 years Normal 08-28-2019 [facility] (31639) Comment: Performed By: #### [id number] ## ## [facility],[address] [place] [address] 40397 Albumin [Mass/Vol] 4.0 3.4 - 4.8 g/dL Normal 08-28-2019 [facility] ( 38381) Comment: Performed By: #### [id number] ## ## [facility],[address] [place] [address] 42256 Albumin/Globulin [Mass 1.5 0.9 - 1.6 {ratio} Normal 019 [facility] ratio] [facility] (22757) Comment: Performed By: #### [id number] ## ## [facility],[address] [place] [address] 47170 ALK PHOS 82 38 - 126 U/L Normal 08-28-2019 [facility] (72450) Comment: Performed By: #### [id number] ## ## [facility],[address] [place] [address] 24042 ALT/SGPT 22 8 - 35 U/L Normal 08-28-2019 [facility] (99196) Comment: Performed By: #### [id number] ## ## [facility],[address] [place] [address] 32636 Anion gap [Moles/Vol] 10 10 - 20 mmol/L Normal 08-28-20 19 [facility] ( 32924) Comment: Performed By: #### [id number] ## ## [facility] [place] [facility],[address] [place] [address] 35002 AST/SGOT 13 13 - 39 U/L Normal 08-28-2019 [facility] (55285) Comment: Performed By: #### [id number] ## ## [facility] [place] [facility],[address] [place] [address] 19331 B/C RATIO 26 0 - 30 ratio Normal 08-28-2019 [facility] (32650) Comment: Performed By: #### [id number] ## ## [facility] [place] [facility],[address] [place] [address] 35288 Bilirubin [Mass/Vol] 0.7 0.0 - 1.5 mg/dl Normal 9 [facility] ( 23625) Comment: Performed By: #### [id number] ## ## [facility] [place] [facility],[address] [facility] 56628 Calcium [Mass/Vol] 8.9 8.6 - 10.2 mg/dl Normal 08-28-2019 [facility] ( 17865) Comment: Performed By: #### [id number] ## ## [facility] [place] [facility],[address] [place] [address] 94071 Chloride [Moles/Vol] 106 98 - 107 mmol/L Normal 9 [facility] ( 93136) Comment: Performed By: #### [id number] ## ## [facility] [place] [facility],[address] [facility] 09426 CO2 [Moles/Vol] 24.2 21.0 - 31.0 mmol/L Normal 08-28-2019 [facility] ( 98456) Comment: Performed By: #### [id number] ## ## [facility] [place] [facility],[address] [place] [address] 32417 Creatinine [Mass/Vol] 0.7 0.6 - 1.2 mg/dl Normal 08-28-20 19 [facility] ( 04869) Comment: Performed By: #### [id number] ## ## [facility],[address] [place] [address] 60809 GFR/1.73 sq M >60 60 - 999 mL/min/{1.73_m2} Normal 9 [facility] predicted among [facility] non-blacks MDRD (000 00) (S/P/Bld) [Vol rate/Area] Comment: Performed By: #### [id number] ## ## [facility],[address] [place] [address] 70920 Result Comment: ACCORDING TO THE NATIONAL KIDNEY DISEASE EDUCATION PROGRAM(NKDE), A NORMAL eGFR IS A VALUE GREATER THAN OR E QUAL TO 60 ML/MIN/1.73 SQ METERS. CHRONIC KIDNEY DISEASE: <60m L/MIN/1.73 SQ METERS KIDNEY FAILURE: <15mL/MIN/1. 73 SQ METERS THIS TEST SHOULD ONLY BE USE D FOR PATIENTS 18 YEARS OF AGE AND OLDER. GFR/1.73 sq M predicted among Normal 08-28-2019 [facility] non-blacks MDRD (S/P/Bld) [Vol Hospital (03541) rate/Area] Comment: Result Comment: COMPREHENSIV E METABOLIC PANEL Performed By: #### [id number] ## ## [facility],[address] [place] [address] 16548 Globulin (S) [Mass/Vol] 2.7 1.5 - 3.8 G/DL Normal 2018 [facility] ( 55947) Comment: Performed By: #### [id number] ## ## [facility],[address] [place] [address] 93622 Glucose [Mass/Vol] 99 74 - 106 mg/dl Normal 08-28-2019 [facility] ( 22021) Comment: Performed By: #### [id number] ## ## [facility],[address] [place] [address] 67057 Potassium [Moles/Vol] 4.0 3.5 - 5.1 mmol/L Normal 08-28-20 19 [facility] ( 41759) Comment: Performed By: #### [id number] ## ## [facility] [place] [facility],[address] [place] [address] 01005 Protein [Mass/Vol] 6.7 6.4 - 8.3 g/dl Normal 08-28-2019 [facility] ( 00109) Comment: Performed By: #### [id number] ## ## [facility] [place] [facility],[address] [place] [address] 62582 Sodium [Moles/Vol] 136 136 - 145 mmol/l Normal 08-28-2019 [facility] ( 86869) Comment: Performed By: #### [id number] ## ## [facility],[address] [place] [address] 64823 Urea nitrogen [Mass/Vol] 18 6 - 20 mg/dl Normal 08-28 [facility] ( 90491) Comment: Performed By: #### [id number] ## ## [facility] [place] [facility],[address] [place] [address] 49617 cbc + diff on 08-28 Basophils (Bld) 0.10 0.00 - 0.10 x10EE3/UL Normal 08-28-2019 [facility] [#/Vol] [facility] (15032) Comment: Performed By: #### [id number] ## ## [facility],[address] [place] [address] 03982 Basophils/100 WBC (Bld) 1.1 0.0 - 2.0 % Normal 2018 [facility] ( 53947) Comment: Performed By: #### [id number] ## ## [facility],[address] [place] [address] 08447 CBC + DIFF Normal 08-28-2019 [facility] (76100) Comment: Result Comment: CBC-COMPLETE BLOOD COUNT Performed By: #### [id number] ## ## [facility] [place] [facility],[address] [place] [address] 47704 Eosinophils (Bld) 0.60 0.00 - 0.50 x10EE3/UL High 08-28-2019 [facility] [#/Vol] [facility] (79819) Comment: Performed By: #### [id number] ## ## [facility],[address] [place] [address] 90319 Eosinophils/100 WBC (Bld) 5.7 0.0 - 7.0 % Normal 08-04 [facility] ( 67986) Comment: Performed By: #### [id number] ## ## [facility],[address] [place] [address] 96402 Erythrocyte distribution 13.2 12.0 - 15.6 % Normal [facility] (RBC) [Ratio] Hospital (96869) Comment: Performed By: #### [id number] ## ## [facility],[address] [place] [address] 27669 Hematocrit (Bld) [Volume 41.5 34.0 - 46.0 % Normal [facility] ( 16704) Comment: Performed By: #### [id number] ## ## [facility],[address] [place] [address] 64097 Hemoglobin (Bld) 13.9 12.0 - 16.0 g/dl Normal 08-28-2019 [facility] [Mass/Vol] [facility] (34412) Comment: Performed By: #### [id number] ## ## [facility],[address] [place] [address] 55685 Lymphocytes (Bld) 3.00 0.80 - 2.80 x10EE3/UL High 08-28-2019 [facility] [#/Vol] [facility] (96891) Comment: Performed By: #### [id number] ## ## [facility],[address] [place] [address] 88526 Lymphocytes/100 WBC (Bld) 30.1 20.0 - 45.0 % Normal [facility] ( 69238) Comment: Performed By: #### [id number] ## ## [facility],[address] [place] [address] 83900 MANUAL DIFF N/A Normal 08-28-[address] [facility] (28211) Comment: Performed By: #### [id number] ## ## [facility],[address] [place] [address] 13810 MCH (RBC) [Entitic mass] 32 27 - 33 pg Normal 08-28 [facility] ( 13364) Comment: Performed By: #### [id number] ## ## [facility],[address] [place] [address] 59248 MCHC (RBC) [Mass/Vol] 34 32 - 36 X10 3 Normal 08-28-20 19 [facility] ( 08205) Comment: Performed By: #### [id number] ## ## [facility],[address] [place] [address] 57101 MCV (RBC) [Entitic vol] 97 80 - 99 fl Normal 2018 [facility] ( 96665) Comment: Performed By: #### [id number] ## ## [facility],[address] [place] [address] 19311 Monocytes (Bld) 0.90 0.20 - 1.00 x10EE3/UL Normal 08-28-2019 [facility] [place] [#/Vol] [facility] (84873) Comment: Performed By: #### [id number] ## ## [facility],[address] [place] [address] 80083 MONOS % 9.1 0.0 - 10.0 % Normal 08-28-2019 [facility] (15057) Comment: Performed By: #### [id number] ## ## [facility],[address] [place] [address] 83976 Morphology Herbert (Bld) [Interp] N/A Normal 08-28-2019 [facility] ( 23542) Comment: Performed By: #### [id number] ## ## [facility],[address] [place] [address] 89375 Neutrophils (Bld) 5.40 1.50 - 7.10 x10EE3/UL Normal 08-28-2019 [facility] [#/Vol] [facility] (64732) Comment: Performed By: #### [id number] ## ## [facility],[address] [place] [address] 25184 Neutrophils/100 WBC (Bld) 54.0 46.0 - 76.0 % Normal [facility] ( 81674) Comment: Performed By: #### [id number] ## ## [facility],[address] [place] [address] 63617 Platelet mean volume 8.3 6.6 - 10.5 fl Normal 08-28-[address] [facility] (Bld) [Entitic vol] [facility] (88887) Comment: Result Comment: AUTOMATED DI FFERENTIAL Performed By: #### [id number] ## ## [facility],[address] [place] [address] 63867 Platelets (Bld) 342 150 - 450 x10EE3/UL Normal 08-28-2019 [facility] [#/Vol] [facility] (31418) Comment: Performed By: #### [id number] ## ## [facility],[address] [place] [address] 77350 RBC (Bld) [#/Vol] 4.29 4.10 - 5.30 x 10EE6/UL Normal 9 [facility] (41208) Comment: Performed By: #### [id number] ## ## [facility],[address] [place] [address] 39966 WBC (Bld) [#/Vol] 10.0 4.5 - 10.8 x 10EE3/UL Normal 08-28-2019 [facility] ( 09051) Comment: Performed By: #### [id number] ## ## [facility],[address] [place], [place] [id number] emergency report on 2019-08-27 EMERGENCY REPORT [facility] Normal 08-27 [facility] EMERGENCY DEPARTMENT REPORT [facility] NAME NUMBER SEX AGE ADMIT DISC TYPE MED.RECORD# ([id number]) MEAGHAN Jensen [id number] F 48 08/23/19 08/23/19 E.R. [id number] ROOM:ER-B DATE OF :1970 PHYSICIAN NO.:[id number] PHYSICI AN NAME:Cory Eisenberg MD PHYSICIAN:TISH GONZALEZ [...] Faina Ford MD 08/23/19 07:14 JOB #: [id number] Transcribed By: [email or web address] 08/23/19 12:57 Electronically signed by: Cory Eisenberg MD 08/24/19 01:51 CHANNING HARDING : 1970 EMERGENCY ROOM REPORT MEAGHAN Jensen 1 [facility] EMERGENCY DEPARTMENT REPORT NAME NUMBER SEX AGE ADMIT DISC TYPE MED.RECORD# MEAGHAN CHANNING Jensen [id number] F [id number] 08/23/19 08/23/19 E.R. [id number] ROOM:ER-B DATE OF :1970 PHYSICIAN NO.:[id number] PHYSICI AN NAME:Cory Eisenberg MD PHYSICIAN:TISH GONZALEZ FAMILY PHYSICIAN: TISH GONZALEZ EMERGENCY ROOM REPORT MEAGHAN Jensen 2 urinalysis on 08-23 Amorphous NONE Normal 08-23-2019 [facility] (65184) Comment: Performed By: #### [id number] ## ## [facility],[address] [place] [address] Bacteria LM.HPF (Urine sed) 1+ Normal [facility] [#/Area] [facility] ( 66755) Comment: Performed By: #### [id number] ## ## [facility],[address] [place] [address] Bilirubin [Mass/Vol] NEG NORMAL: NEGATIVE mg/dL Normal [facility] (73234) Comment: Performed By: #### [id number] ## ## [facility],[address],[place] [address] Blood 10 NORMAL: NEGATIVE Abnormal 08-23-2019 [facility] (47153) Comment: Performed By: #### [id number] ## ## [facility],[address] [place] [address] 86656 Casts LM.LPF (Urine sed) NONE Normal 08-23 [facility] [/Area] [facility] ( 26133) Comment: Performed By: #### [id number] ## ## [facility],[address] [place] [address] 23042 Clarity (U) clear NORMAL: CLEAR Normal 08-23-2019 [facility] (02653) Comment: Performed By: #### [id number] ## ## [facility],[address] [place] [address] 46194 Color (U) p.yel NORMAL: YELLOW Normal 08-23-2019 [facility] (40981) Comment: Performed By: #### [id number] ## ## [facility],[address] [place] [address] 59321 Crystals LM Nom (Urine sed) NONE Normal [facility] ( 26307) Comment: Performed By: #### [id number] ## ## [facility],[address] [place] [address] 92915 Epi Cells MODERATE Normal 08-23-2019 [facility] (13273) Comment: Performed By: #### [id number] ## ## [facility],[address] [place] [address] 01045 Glucose [Mass/Vol] NORM NORMAL: NORMAL Normal 2018 [facility] ( 97751) Comment: Performed By: #### [id number] ## ## [facility],[address] [place] [address] 83032 Ketone NEG NORMAL: NEGATIVE Normal 08-23-2019 [facility] (86205) Comment: Performed By: #### [id number] ## ## [facility],[address] [place] [address] 76789 Microscopic SEE BELOW Normal 08-23-[address] [facility] (62421) Comment: Result Comment: MICROSCOPIC Performed By: #### [id number] ## ## [facility],[address] [place] [address] 73137 Mucous 1+ Normal 08-23-2019 [facility] (18811) Comment: Performed By: #### [id number] ## ## [facility],[address] [place] [address] 03214 Nitrite Ql (U) NEG NORMAL: NEGATIVE Normal 08-23-20 19 [facility] ( 25629) Comment: Performed By: #### [id number] ## ## [facility],[address] [place] [address] 00709 pH (Bld) 6 NORMAL: 5.0-8.0 Normal 08-23-2019 [facility] (76250) Comment: Performed By: #### [id number] ## ## [facility],[address] [place], [place] [id number] Protein (U) NEG NORMAL: NEGATIVE mg/dL Normal 08-23-2019 [facility] [Mass/Vol] [facility] (10726) Comment: Performed By: #### [id number] ## ## [facility],[address] [place] [address] 87742 Rbc 0-5 0-3/hpf Normal 08-23-2019 [facility] (60228) Comment: Performed By: #### [id number] ## ## [facility],[address] [place] [address] 34701 Sp [place] 1.020 NORMAL: 1.010-1.030 Normal 9 [facility] ( 85245) Comment: Performed By: #### [id number] ## ## [facility],[address] [place] [address] 30689 Specimen type Nom (Spec) Void Normal 08-23 [facility] (59198) Comment: Performed By: #### [id number] ## ## [facility] [place] [facility],[address] [place] [address] 26792 Urobilinog NORM NORMAL: NORMAL Normal 08-23-2019 [facility] (14047) Comment: Performed By: #### [id number] ## ## [facility] [place] [facility],[address] [place] [address] 98214 Wbc 16-25 0-5/hpf Normal 08-23-2019 [facility] (84890) Comment: Performed By: #### [id number] ## ## [facility],[address] [place] [address] 19915 WBC (Bld) [#/Vol] 500 NORMAL: NEGATIVE Abnormal 08-23 [facility] ( 14055) Comment: Performed By: #### [id number] ## ## [facility],[address] [place] [address] 89874 Yeast LM Ql (Urine sed) 1+ Normal 2018 [facility] (52402) Comment: Performed By: #### [id number] ## ## [facility],[address] [place] [address] 98586 urine on 2019-08-23 Beta HCG ( test) NEGATIVE NEGATIVE Normal 08-04 [facility] ( 51324) Comment: Performed By: #### [id number] ## ## [facility],[address] [place] [address] 05967 EXTERNAL QC DONE? YES Normal 08-23-2019 [facility] (92578) Comment: Performed By: #### [id number] ## ## [facility],[address] [place] [address] 83776 INTERNAL QC PASS Normal 08-23-[address] [facility] (33243) Comment: Performed By: #### [id number] ## ## [facility],[address] [place] [address] 40267 mrsa screen nares o n 2019-08-23 MRSA SCREEN NARES MRSA SCREEN Normal 08-23-2019 [facility] CALLED TO FRANKIE/0833/BKO (85117) Methicillin resistant Staphylococcus aur eus is a [...] of infectio n. Comment: Performed By: #### [id number] ## ## [facility],[address] [place] [address] 64824 lipase on 2019-08-04 1 Lipase [Catalytic 16.0 18.0 - 51.0 U/L Low 08-23-2019 [facility] activity/Vol] Hospit al (48242) Comment: Performed By: #### [id number] ## ## [facility] [place] [facility],[address] [place] [address] 65982 culture wound on 21-08-21 CULTURE CULTURE WOUND Normal 08-23-2019 [facility] WOUND _[facility]ULT[facility]_ [facility] Thomas [facility] C R O B I O L O G Y R E P O R T FINAL [facility] ----- Antimicrobial Susceptibility and Organism Identification Report Hospital Specimen Number : [id number] Requested : 08/23/19 (92545) Specimen Source : WOUND Collected : 08/23/19 [...] Ticar/Mikey Clav'ate for gram positives based on hydro station operator's breakpoints. Tech : _CALLED_TO_LAYLA_IN_ER____ Source : WOUND ID08/25/19. 1446.KLS. F L 08/25/19, 13:40, KLS Report Date : / / : Collected : 08/23/19 05:25 08/25/19.1446.KLS. 08/24/19.0851.BKO. SEND TO PHARMACY? YES 08/25/19.1447.OTF.COMPLETE 08/25/19, 13:40, KLS 08/25/19, 13:40, KLS YES Comment: Performed By: #### [id number] ## ## Frankie Fowler [facility],[address] [place] [address] culture urine on 21-08-21 CULTURE CULTURE URINE Normal 08-23-2019 Frankie URINE _URINE CULTURE_ [place] [facility] I O L O G Y R E P O R T FINAL [facility] ----- Antimicrobial Susceptibility and Organism Identification Report Hospital Specimen Number : [id number] Requested : 08/23/19 ([id number]) Specimen Source : URINE Collected : 08/23/19 05:25 [facility] : Emergency Room Received : 08/23/19 05:25 Requesting Physician : BHAVANA Patient/Specimen Tests and Comments Specimen Comments --------- FINAL REPORT: URINE COLONY COUNT: [id number] CFU/CC >OR=TO 3 COLONY TYPES CONTAMINATED WITH: GRAM POSITIVE RENÉ Tech : Source : URINE ID # : [id number] FINAL Report Date : / / : Collected : 08/23/19 05:25 08/26/19.142.KLS. 08/24/19.0851.BKO. 08/26/19.1420.KLS.COMPLETE Comment: Performed By: #### [id number] ## ## [facility],[address] [place] [address] ct kub (kidney stone protocol) on 2019-08-23 CT KUB ([facility] Normal 019 [facility] STONE PROTOCOL) [place] [id number] ([id number]) Patient: CHANNING HARDING Phone#: : 1970 Age: 48 Gender: F Pt. Type: ER Account: [id number] Location: 2 Ordering: DR. FAINA FORD Exam Date: 08/23/2019/6:32 Family Phys: YENI WINSTON Charge Code: 001836 Physician: [place] Order #: [id number] DLP Dose#: 18.90 PROCEDURE: CT ABDOMEN AND [...] 48 Gender: F Pt. Type: ER Account: [id number] Location: [facility] Ordering: DR. FAINA FORD Exam Date: 08/23/2019/6:32 Family Phys: YENI WINSTON Charge Code: [id number] Physician: [place] Order #: [id number] DLP Dose#: 18.90 BONES: Degenerative changes of [...] Age - Reported 48 years Normal 08-23-2019 [facility] (11402) Comment: Performed By: #### [id number] ## ## [address] [address] Albumin [Mass/Vol] 4.6 3.4 - 4.8 g/dL Normal 08-23-2019 [facility] ( 39622) Comment: Performed By: #### [id number] ## ## [facility],[address],[place] [address] Albumin/Globulin [Mass 1.5 0.9 - 1.6 {ratio} Normal 019 [facility] (42750) Comment: Performed By: #### [id number] ## ## [facility] [place] en[place],[address] [facility] [address] ALK PHOS 88 38 - 126 U/L Normal 08-23-2019 [facility] (29606) Comment: Performed By: #### [id number] ## ## [facility] [place],[address] [facility] [address] ALT/SGPT 28 8 - 35 U/L Normal 08-23-2019 [facility] (11163) Comment: Performed By: #### [id number] ## ## [facility] [place],[address] [facility] [address] Anion gap [Moles/Vol] 13 10 - 20 mmol/L Normal 08-23-20 19 [facility] ( 59505) Comment: Performed By: #### [id number] ## ## [facility] [place],[address] [facility] [address] AST/SGOT 17 13 - 39 U/L Normal 08-23-2019 [facility] (40793) Comment: Performed By: #### [id number] ## ## [facility] [place] en[place],[address] [place] [address] [place] [address] B/C RATIO 29 0 - 30 ratio Normal 08-23-2019 [facility] (04709) Comment: Performed By: #### [id number] ## ## [facility] [place],[address] [facility] [address] Bilirubin [Mass/Vol] 0.5 0.0 - 1.5 mg/dl Normal 9 [facility] ( 96065) Comment: Performed By: #### [id number] ## ## [facility] [place],981 [facility] [address] Calcium [Mass/Vol] 9.5 8.6 - 10.2 mg/dl Normal 08-23-2019 [facility] ( 18620) Comment: Performed By: #### [id number] ## ## [facility],[address] [place] [address] Chloride [Moles/Vol] 102 98 - 107 mmol/L Normal 9 [facility] ( 35993) Comment: Performed By: #### [id number] ## ## [facility],[address] [place] [address] CO2 [Moles/Vol] 26.3 21.0 - 31.0 mmol/L Normal 08-23-2019 [facility] ( 63501) Comment: Performed By: #### [id number] ## ## [facility],[address] [place] [address] Creatinine [Mass/Vol] 0.7 0.6 - 1.2 mg/dl Normal 08-23-20 19 [facility] ( 49891) Comment: Performed By: #### [id number] ## ## [facility],[address] [place] [address] GFR/1.73 sq M >60 60 - 999 mL/min/{1.73_m2} Normal 9 [facility] predicted among [facility] non-blacks MDRD (000 00) (S/P/Bld) [Vol rate/Area] [...] OF AGE AND OLDER. Performed By: #### [id number] ## ## [facility],[address] [place] [address] GFR/1.73 sq M predicted among Normal 08-23-2019 [facility] non-blacks MDRD (S/P/Bld) [Vol Hospital (08649) rate/Area] Comment: Result Comment: COMPREHENSIV E METABOLIC PANEL Performed By: #### [id number] ## ## [facility] [place] [facility],[address] [place] [address] Globulin (S) [Mass/Vol] 3.0 1.5 - 3.8 G/DL Normal 2018 [facility] ( 71845) Comment: Performed By: #### [id number] ## ## [facility] [place] [facility],[address] [place] [address] [place] [address] Glucose [Mass/Vol] 97 74 - 106 mg/dl Normal 08-23-2019 [facility] ( 61372) Comment: Performed By: #### [id number] ## ## [facility],[address] [place] [address] Potassium [Moles/Vol] 3.9 3.5 - 5.1 mmol/L Normal 08-23-20 [facility] ( 50747) Comment: Performed By: #### [id number] ## ## [facility],[address] [place] [address] [place] [address] Protein [Mass/Vol] 7.6 6.4 - 8.3 g/dl Normal 08-23-2019 [facility] ( 84208) Comment: Performed By: #### [id number] ## ## [facility],[address] [place] [address] [place] [address] Sodium [Moles/Vol] 137 136 - 145 mmol/l Normal 08-23-2019 [facility] ( 03979) Comment: Performed By: #### [id number] ## ## [facility],[address] [place] [address] [place] [address] Urea nitrogen [Mass/Vol] 20 6 - 20 mg/dl Normal 08-23 [facility] ( 46041) Comment: Performed By: #### [id number] ## ## [facility],[address] [facility] [address] chest 2 views on 21-08-21 CHEST 2 VIEWS [facility] Normal 08-23-20 [facility] [address] [place] [address] (70064) Patient: CHANNING HARDING Phone#: : 1970 Age: 48 Gender: F Pt. Type: ER Account: [id number] Location: [facility] Ordering: DR. FAINA FORD Exam Date: 08/23/2019/6:33 Family Phys: YENI WINSTON Charge Code: [id number] Physician: [place] Order #: [id number] DLP Dose#: PROCEDURE: X-RAY CHEST 2 VIEWS COMPARISON: [facility], XR, CHEST 1 VIEW, 02/12/2019, 9:10. INDICATIONS: [...] - 0.10 x10EE3/UL Normal 08-23-2019 Ken john [place] [#/Vol] [facility]ital (07067) Comment: Performed By: #### [id number] ## ## [facility],[address] [facility] [address] Basophils/100 WBC (Bld) 1.0 0.0 - 2.0 % Normal 2018 [facility] ( 05021) Comment: Performed By: #### [id number] ## ## [facility] [place] [facility],[address] [place] [address] CBC + DIFF Normal 08-23-2019 [facility] (09582) Comment: Result Comment: CBC-COMPLETE BLOOD COUNT Performed By: #### [id number] ## ## [facility] [place] [facility],[address] [place] [address] Eosinophils (Bld) 0.70 0.00 - 0.50 x10EE3/UL High 08-23-2019 [facility] [#/Vol] [facility] (41188) Comment: Performed By: #### [id number] ## ## [facility],[address] [place] [address] Eosinophils/100 WBC (Bld) 6.0 0.0 - 7.0 % Normal 08-04 [facility] ( 91073) Comment: Performed By: #### [id number] ## ## [facility],[address] [place] [address] Erythrocyte distribution 13.3 12.0 - 15.6 % Normal [facility] (RBC) [Ratio] [facility] (13375) Comment: Performed By: #### [id number] ## ## [facility],[address] [place] [address]16 Hematocrit (Bld) [Volume 41.5 34.0 - 46.0 % Normal [facility]] [facility] ( 02992) Comment: Performed By: #### [id number] ## ## [facility],[address] [place] [address] Hemoglobin (Bld) 13.7 12.0 - 16.0 g/dl Normal 08-23-2019 [facility] [Mass/Vol] [facility] (70091) Comment: Performed By: #### [id number] ## ## [facility] [place] [facility],[address] [place] [address]81 Lymphocytes (Bld) 2.80 0.80 - 2.80 x10EE3/UL Normal 08-23-2019 [facility] [#/Vol] [facility] (31192) Comment: Performed By: #### [id number] ## ## [facility],[address] [place] [address] Lymphocytes/100 WBC (Bld) 22.5 20.0 - 45.0 % Normal [facility] ( 62488) Comment: Performed By: #### [id number] ## ## [facility],[address] [place] [address] MANUAL DIFF N/A Normal 08-23-[address] [facility] (80114) Comment: Performed By: #### [id number] ## ## [facility],[address] [place] [address] 47990 MCH (RBC) [Entitic mass] 32 27 - 33 pg Normal 08-23 [facility] ( 23263) Comment: Performed By: #### [id number] ## ## [facility],[address] [place] [address] 76869 MCHC (RBC) [Mass/Vol] 33 32 - 36 X10 3 Normal 08-23-20 19 [facility] ( 07714) Comment: Performed By: #### [id number] ## ## [facility],[address] [place] [address]483 MCV (RBC) [Entitic vol] 97 80 - 99 fl Normal 2018 [facility] ( 30956) Comment: Performed By: #### [id number] ## ## [facility],[address] [place] [address]67[address] Monocytes (Bld) 0.90 0.20 - 1.00 x10EE3/UL Normal 08-23-2019 Ken raine [place] [#/Vol] [facility] (47271) Comment: Performed By: #### [id number] ## ## [facility],[address] [place] [address] MONOS % 7.0 0.0 - 10.0 % Normal 08-23-2019 [facility] (93191) Comment: Performed By: #### [id number] ## ## [facility],[address] [place] [address]1445 Morphology Herbert (Bld) [Interp] N/A Normal 08-23-2019 [facility] ( 32104) Comment: Performed By: #### [id number] ## ## [facility],[address] [place] [address]100 Neutrophils (Bld) 7.80 1.50 - 7.10 x10EE3/UL High 08-23-2019 [facility] [#/Vol] [facility] (63715) Comment: Performed By: #### [id number] ## ## [facility],[address] [place] [address] 23796 Neutrophils/100 WBC (Bld) 63.5 46.0 - 76.0 % Normal [facility] ( 91868) Comment: Performed By: #### [id number] ## ## [facility],[address] [place] [address] 09120 Platelet mean volume 9.0 6.6 - 10.5 fl Normal 08-23-[address] [facility] (d) [Entitic vol] [facility] (57929) Comment: Result Comment: AUTOMATED DI FFERENTIAL Performed By: #### [id number] ## ## [facility],[address] [place] [address]74 Platelets (Bld) 357 150 - 450 x10EE3/UL Normal 08-23-2019 [facility] [#/Vol] [facility] (59497) Comment: Performed By: #### [id number] ## ## [facility],[address] [place] [address] RBC (Bld) [#/Vol] 4.29 4.10 - 5.30 x 10EE6/UL Normal 9 [facility] (14468) Comment: Performed By: #### [id number] ## ## [facility] [place] [facility] [facility],[address] [place] [address] WBC (Bld) [#/Vol] 12.3 4.5 - 10.8 x 10EE3/UL High 08-23-2019 [facility] ( 13905) Comment: Performed By: #### [id number] ## ## [facility],[address] [place] [address]74 emergency report on 2019-05-11 EMERGENCY REPORT [facility] Normal 05-11 [facility] EMERGENCY ROOM REPORT ([id number]) NAME ACCOUNT SEX AGE ADMIT DISCHARGE PT MED. RECORD# NUMBER DATE DATE TYPE CHANNING HARDING [id number] F 48 02/12/19 02/12/19 3 K [id number] ROOM: ER DATE OF : 1970 DICTATING [...] Mari Hardy DO 02/12/19 10:15 JOB #: [id number] Transcribed By: [email or web address] 02/13/19 11:13 Electronically signed by: MARI HARDY DO 05/11/19 07:23 Page 2 of 2 CHANNING HARDING Emergency Room Report cur on 2018-04-20 CUR . MICRO - MicrobiologyPROCEDURE: Normal 04-20-2018 [facility] Urine Culture [*1] ACCESSION: [facility] ([place]) [phone]: Urine, Clean ([id number]) Catch BODY SITE:COLLECTED DATE/TIME: 04/17/2018 09:55 EDT RECEIVED DATE/TIME: 04/18/2018 15:04 EDTSTART DATE/TIME: 04/18/2018 15:05 EDT FREE TEXT SOURCE:FINAL REPORTSFinal Report []Verified Date/Time/Personnel: 04/20/2018 07:45 EDT50,000 organisms per mLMixed without predominant isolate(s). SensitivityTesting not indicated. Probably contamination. Repeatculture suggested.PRELIMINARY REPORTSPreliminary Report []Verified Date/Time/Personnel: 04/19/2018 07:57 EDTNo growth to datePerforming Locations*1: This test was performed at: [facility], [address] [place] [address], [address]- , [facility] Comment: Performed By: #### CBC, ADIF F, ANEU, TROP, DIMER, PRISCILA, CMP, GFR, ACETA ####Moody [address] [place], [place] [address] ct soft tissue neck w/ contrast on 2017-11-01 CT SOFT TISSUE ORIGINALCT SOFT TISSUE Normal [facility] NECK W/ CONTRAST NECK W/ CONTRAST [facility] ([place]) Statement: ENLARGED LYMPH (08434) NODES, CHRONIC SINUSITIS TECHNIQUE: Multiple-row detector helical [...] 2017-10 CT SINUS ORIGINALCT SINUS, 11/01/2017 Normal [facility] 9:50 AM INDICATION: ENLARGED [facility] [place]) (42620) LYMPHNODES, CHRONIC SINUSITIS COMPARISON: 03 May 2017 [...] SPINE THORACIC ORIGINALXR SPINE THORACIC Normal 05-03-2017 [facility] 2 VIEWS 3 VIEWS CLINICAL [...] SPINE CERVICAL ORIGINALXR SPINE CERVICAL Normal 05-03-2017 [facility] W/ OBLIQUES 5 W/ OBLIQUES 5 VIEWS [facility] ([place]) VIEWS CLINICAL STATEMENT: pain (25614) COMPARISON: None FINDINGS: The cervical spine is [...] VIEWS ORIGINALXR CHEST 2 VIEWS Normal 05-03-2017 [facility] CLINICAL STATEMENT: [facility] ([place]) mental status COMPARISON: (33894) Chest radiograph 04/12/2010 FINDINGS: The cardiomediastinal contours [...] on 2017-05-03 UA Appear CLEAR Normal 05-03-2017 [facility]) (74177) Comment: Performed By: #### CBC, ADIF F, ANEU, TROP, DIMER, PRISCILA, CMP, GFR, ACETA ####Trang [address] [place], [place] [address] UA Blood NEGATIVE Normal 05-03-2017 [facility] ([place]) (03775) Comment: Performed By: #### CBC, ADIF F, ANEU, TROP, DIMER, PRISCILA, CMP, GFR, ACETA ####Trang [address] [place], [place] [address] UA Leuk Est NEGATIVE Normal 05-03-2017 [facility] ([place]) (38003) Comment: Performed By: #### CBC, ADIF F, ANEU, TROP, DIMER, PRISCILA, CMP, GFR, ACETA ####Trang [address] [place], [place] [address] UA Nitrite NEGATIVE Normal 05-03-2017 [facility]) (85092) Comment: Performed By: #### CBC, ADIF F, ANEU, TROP, DIMER, PRISCILA, CMP, GFR, ACETA ####Trang [address] [place], [place] [address] UA pH 6.0 Normal 05-03-2017 [facility]) (92466) Comment: Performed By: #### CBC, ADIF F, ANEU, TROP, DIMER, PRISCILA, CMP, GFR, ACETA ####Moody [address] [place] [address] UA Protein NEGATIVE Normal 05-03-2017 [facility] ([place]) (58517) Comment: Performed By: #### CBC, ADIF F, ANEU, TROP, DIMER, PRISCILA, CMP, GFR, ACETA ####Moody [address] [place], [place] [address] UA Spec Grav 1.025 Normal 05-03-2017 [facility]) (95274) Comment: Performed By: #### CBC, ADIF F, ANEU, TROP, DIMER, PRISCILA, CMP, GFR, ACETA ####Moody [address] [place] [address] UA Specimen Type Clean Catch Normal 05-03-2017 [facility] ([place]) (58543) Comment: Performed By: #### CBC, ADIF F, ANEU, TROP, DIMER, PRISCILA, CMP, GFR, ACETA ####Trang [address] [place], [place] [address] UA Urobilinogen 0.2 E.U./dL Normal 05-03-2017 [facility] ([place]) (61105) Comment: Performed By: #### CBC, ADIF F, ANEU, TROP, DIMER, PRISCLIA, CMP, GFR, ACETA ####Trang [address] [place], [place] [address] Urine, color YELLOW Normal 05-03-2017 [facility]) (95296) Comment: Performed By: #### CBC, ADIF F, ANEU, TROP, DIMER, PRISCILA, CMP, GFR, ACETA ####Trang [address] [place], [place] [address] Urine, glucose NEGATIVE mg/dL Normal 05-03-2017 [facility] ([place]) (20352) Comment: Performed By: #### CBC, ADIF F, ANEU, TROP, DIMER, PRISCILA, CMP, GFR, ACETA ####Trang [address] [place], [place] [address] Urine, ketones presence NEGATIVE Normal 2016 [facility] ([place]) (76579) Comment: Performed By: #### CBC, ADIF F, ANEU, TROP, DIMER, PRISCILA, CMP, GFR, ACETA ####Trang [address] [place], [place] [address] Urine, urobilinogen NEGATIVE {Desirae'U}/dL Normal 05-03 [facility]) (41406) Comment: Performed By: #### CBC, ADIF F, ANEU, TROP, DIMER, PRISCILA, CMP, GFR, ACETA ####Trang [address] [place], [place] [address] trop on 2017-05-03 Troponin I.cardiac <0.30 0.00-0.30 ng/mL Normal 05-03-2017 [facility] ([place]) (29235) Comment: Result Comment: Below measur ing range>=0.30 [...] DIMER, PRISCILA, CMP, GFR, ACETA ####Trang [address] [place], [place] [address] toxsc on 2017-05-03 QC TOXSC Valid Normal 05-03-2017 [facility] ([place]) (70935) Comment: Performed By: #### TOXSC ### #Trang [address] [place], [place] [address] U Ampheta (AO) Negative Normal 05-03-2017 [facility] ([place]) (64023) Comment: Performed By: #### TOXSC ### #Trang [address] [place], [place] [address] U Reshma (AO) Negative Normal 05-03-2017 [facility] ([place]) (81986) Comment: Performed By: #### TOXSC ### #Trang [address] [place], [place] [address] U Joseph (AO) Positive Normal 05-03-2017 [facility] ([place]) (24079) Comment: Performed By: #### TOXSC ### #Trang [address] [place], [place] [address] U Cannab (AO) Negative Normal 05-03-2017 [facility] ([place]) (44795) Comment: Performed By: #### TOXSC ### #Trang [address] [place], [place] [address] U Cocaine (AO) Negative Normal 05-03-2017 [facility] ([place]) (17182) Comment: Performed By: #### TOXSC ### #Trang [address] [place], [place] [address] U Methadone (AO) Negative Normal 05-03-2017 [facility] ([place]) (94826) Comment: Performed By: #### TOXSC ### #Trang [address] [place], [place] [address] U PCP (AO) Negative Normal 05-03-2017 [facility] ([place]) (03473) Comment: Performed By: #### TOXSC ### #Rtang [address] [place], [place] [address] U TCA (AO) Negative Normal 05-03-2017 [facility] ([place]) (80725) Comment: Performed By: #### TOXSC ### #Trang [address] [place], [place] [address] Urine Opiates (AO) Negative Normal 05-03-2017 [facility] ([place]) (11592) Comment: Performed By: #### TOXSC ### #Trang [address] [place], [place] [address] priscila on 2017-05-03 Salicylate Level <1.0 10.0-25.0 Low 05-03-2017 [facility] ([place]) (04390) Comment: Performed By: #### CBC, ADIF F, ANEU, TROP, DIMER, PRISCILA, CMP, GFR, ACETA ####Trang [address] [place], [place] [address] pregu on 2017-05-03 HCG ( test) (U) Negative Normal [facility] ([place]) (0000 0) Comment: Performed By: #### CBC, ADIF F, ANEU, TROP, DIMER, PRISCILA, CMP, GFR, ACETA ####Moody [address] [place], [place] [address] test HCG not Invalid 05-03-2017 [facility] () int detected. Interpretation [facility] ([place]) (04648) Comment: Performed By: #### CBC, ADIF F, ANEU, TROP, DIMER, PRISCILA, CMP, GFR, ACETA ####Moody [address] [place], [place] [address] patient summary documents on 2017-05-03 Patient Summary Documents Normal [facility] ([place]) (73420) [place] [facility] note on 2017-05-03 [facility] Note Normal 0 05-03-2017 [facility] ([place]) (94386) [facility] Note Normal 0 05-03-2017 [facility] ([place]) (34223) gfr on 2017-05-03 GFR 101 ml/min/1.73sqm Normal 08 [facility] ([place]) (0000 0) Comment: Result Comment: GFR Populati [...] ANEU, TROP, DIMER, PRISCILA, CMP, GFR, ACETA ####Moody [address] [place], [place] [address] GFR Non- >60 Normal 05-03 [facility] ([place]) (41079) Comment: Result Comment: GFR Populati on mean [...] ANEU, TROP, DIMER, PRISCILA, CMP, GFR, ACETA ####Moody [address] [place], [place] [address] dimer on 2017-05-03 Fibrin D-dimer FEU 0.23 <=0.49 mcg/mL FEU Normal 05-03-2017 [facility] ([place]) (0000 0) Comment: Result Comment: The result o f the D-Dimer test should be evaluated in the context of all the clinical and laboratory data available.In those instances where the laboratory result does not agree with the clinical evaluation, additional tests shouldbe pe rformed accordingly. Performed By: #### CBC, ADIF F, ANEU, TROP, DIMER, PRISCILA, CMP, GFR, ACETA ####Moody [address] [place], [place] [address] ct sinus on 2017-05 CT SINUS ORIGINALCT SINUS, 05/03/2017 Normal [facility] 2:12 PM INDICATION: headache [facility]) (44782) COMPARISON: No TECHNIQUE: CT of the head [...] Report By: Edgardo Kline MDElectronically Signed By: Edgrado Kline MD Dictated Date: 05/03/2017 2:14:08 PM Prelim Date: 05/03/2017 2:14:08 PM Sign Date: 05/03/2017 2:15:[address] head or brain w/o contrast on 2017-05-03 CT HEAD OR BRAIN ORIGINALHead CT 05/03/2017 Normal 05-03-2017 [facility] W/O CONTRAST 1:54 PM INDICATION: [facility] [place]) Altered mental status (40459) COMPARISON: No TECHNIQUE: Routine non-contrast head CT. [...] 49 10-35 ZZ High 05-03-2017 [facility] ([place]) (0000 0) Comment: Performed By: #### CBC, ADIF F, ANEU, TROP, DIMER, PRISCILA, CMP, GFR, ACETA ####Trang [address] [place], [place] [address] Albumin 4.3 3.5-5.0 G/dL Normal 05-03-2017 [facility]) (73356) Comment: Performed By: #### CBC, ADIF F, ANEU, TROP, DIMER, PRISCILA, CMP, GFR, ACETA ####Trang [address] [place], [place] [address] Albumin/Globulin Ratio 1.6 1.1-2.5 ratio Normal 017 [facility]) (0000 0) Comment: Performed By: #### CBC, ADIF F, ANEU, TROP, DIMER, PRISCILA, CMP, GFR, ACETA ####Trang [address] [place], [place] [address] Alk Phos 116 40-135 ZZ Normal 05-03-2017 [facility] ([place]) (69447) Comment: Performed By: #### CBC, ADIF F, ANEU, TROP, DIMER, PRISCILA, CMP, GFR, ACETA ####Trang [address] [place], [place] [address] Aspartate aminotransferase 26 10-40 ZZ Normal [facility] ([facility]) [facility] ([place]) (68445) Comment: Performed By: #### CBC, ADIF F, ANEU, TROP, DIMER, PRISCILA, CMP, GFR, ACETA ####Trang [address] [place], [place] [address] Bili Total 0.5 0.2-1.0 mg/dL Normal 05-03-2017 [facility] ([place]) (15715) Comment: Performed By: #### CBC, ADIF F, ANEU, TROP, DIMER, PRISCILA, CMP, GFR, ACETA ####Trang [address] [place], [place] [address] BUN/Creatinine Ratio 14 7-27 ratio Normal 05-03-201 7 [facility]) (17588) Comment: Performed By: #### CBC, ADIF F, ANEU, TROP, DIMER, PRISCILA, CMP, GFR, ACETA ####Trang [address] [place] [id number] Calcium 9.5 8.4-10.2 mg/dL Normal 05-03-2017 [facility]) (08400) Comment: Performed By: #### CBC, ADIF F, ANEU, TROP, DIMER, PRISCILA, CMP, GFR, ACETA ####Trang [address] [place] [address]87 Chloride 104 98-107 mEq/L Normal 05-03-2017 [facility]) (64325) Comment: Performed By: #### CBC, ADIF F, ANEU, TROP, DIMER, PRISCILA, CMP, GFR, ACETA ####Trang [address] [place] [id number] CO2 21 22-29 mEq/L Low 05-03-2017 [facility]) (88915) Comment: Performed By: #### CBC, ADIF F, ANEU, TROP, DIMER, PRISCILA, CMP, GFR, ACETA ####Trang [address] [place], [place] [address] Creatinine 0.8 0.6-1.2 mg/dL Normal 05-03-2017 [facility]) (73191) Comment: Performed By: #### CBC, ADIF F, ANEU, TROP, DIMER, PRISCILA, CMP, GFR, ACETA ####Trang [address] [place], [place] [address] Electrolyte Balance 12.0 mEq/L Normal 05-03-2017 [facility]) ([id number]) Comment: Performed By: #### CBC, ADIF F, ANEU, TROP, DIMER, PRISCILA, CMP, GFR, ACETA ####[address]ang [address] [place] [id number] Globulin 2.7 G/dL Normal 05-03-2017 [facility]) ([id number]) Comment: Performed By: #### CBC, ADIF F, ANEU, TROP, DIMER, PRISCILA, CMP, GFR, ACETA ####Trang [address] [place], [place] [address] Glucose mass conc 123 70-105 mg/dL High 05-03-2017 [facility] ([place]) ([id number]) Comment: Performed By: #### CBC, ADIF F, ANEU, TROP, DIMER, PRISCILA, CMP, GFR, ACETA ####[address] [place], [place] [address] Potassium molar conc 3.9 3.5-5.1 mEq/L Normal 7 [facility] ([place]) (0000 0) Comment: Performed By: #### CBC, ADIF F, ANEU, TROP, DIMER, PRISCILA, CMP, GFR, ACETA ####Trang [address] [place], [place] [address] Protein 7.0 6.0-8.3 G/dL Normal 05-03-2017 [facility] ([place]) ([id number]) Comment: Performed By: #### CBC, ADIF F, ANEU, TROP, DIMER, PRISCILA, CMP, GFR, ACETA ####Trang [address] [place], [place] [address] Sodium 137 136-146 mEq/L Normal 05-03-2017 [facility]) ([id number]) Comment: Performed By: #### CBC, ADIF F, ANEU, TROP, DIMER, PRISCILA, CMP, GFR, ACETA ####Trang [address] [place], [place] [address] Urea nitrogen 11.5 7.0-18.0 mg/dL Normal 05-03-2017 [facility] ([place]) ([id number]) Comment: Performed By: #### CBC, ADIF F, ANEU, TROP, DIMER, PRISCILA, CMP, GFR, ACETA ####Moody [address] [place], [place] [address] cbc on 2017-05-03 Erythrocyte distribution 13.0 11.5-14.5 % Normal 05-03 [facility] width Auto Ratio (RBC) [facility] ([id number]) Comment: Performed By: #### CBC, ADIF F, ANEU, TROP, DIMER, PRISCILA, CMP, GFR, ACETA ####Tr[address] [place], [place] [address] Erythrocytes (RBC) 4.50 4.20-5.40 10 6/mcL Normal 05-03-2017 [facility] ([place]) ([id number]) Comment: Performed By: #### CBC, ADIF F, ANEU, TROP, DIMER, PRISCILA, CMP, GFR, ACETA ####Moody [address] [place], [place] [address] Hematocrit (HCT) 43.2 37.0-47.0 % Normal 05-03-2017 [facility] ([place]) ([id number]) Comment: Performed By: #### CBC, ADIF F, ANEU, TROP, DIMER, PRISCILA, CMP, GFR, ACETA ####M[address] [place], [place] [address] Hemoglobin mass conc 14.7 12.0-16.0 G/dL Normal [address] [place] [address] ([facility]) ([id number]) Comment: Performed By: #### CBC, ADIF F, ANEU, TROP, DIMER, PRISCILA, CMP, GFR, ACETA ####Moody [address] [place], [place] [address] MCH 32.6 27.0-31.2 pg High 05-03-2017 [facility]) ([id number]) Comment: Performed By: #### CBC, ADIF F, ANEU, TROP, DIMER, PRISCILA, CMP, GFR, ACETA ####Trang [address] [place], [place] [address] MCHC mass conc (RBC) 34.0 33.0-37.0 G/dL Normal 7 [facility]) (0000 0) Comment: Performed By: #### CBC, ADIF F, ANEU, TROP, DIMER, PRISCILA, CMP, GFR, ACETA ####Trang [address] [place], [place] [address] MCV 96.0 80.0-94.0 fL High 05-03-2017 [facility] ([place]) ([id number]) Comment: Performed By: #### CBC, ADIF F, ANEU, TROP, DIMER, PRISCILA, CMP, GFR, ACETA ####Moody [address] [place], [place] [address] Platelet mean volume 8.6 7.4-10.4 fL Normal 7 [facility] ([facility]) ([place]) (0000 0) Comment: Performed By: #### CBC, ADIF F, ANEU, TROP, DIMER, PRISCILA, CMP, GFR, ACETA ####Trang [address] [place], [place] [address] Platelets 281 130-400 10 3/mcL Normal 05-03-2017 [facility] ([place]) ([id number]) Comment: Performed By: #### CBC, ADIF F, ANEU, TROP, DIMER, PRISCILA, CMP, GFR, ACETA ####Moody [address] [place], [place] [address] WBC (Leukocytes) 7.50 4.60-10.80 10 3/mcL Normal 05-03-2017 [facility] ([place]) (0000 0) Comment: Performed By: #### CBC, ADIF F, ANEU, TROP, DIMER, PRISCILA, CMP, GFR, ACETA ####Moody [address] [place], [place] [address] aceta on 2017-05-03 Acetaminophen mass conc <15.0 15.0-30.0 Low 2016 [facility] ([place]) (0000 0) Comment: Performed By: #### CBC, ADIF F, ANEU, TROP, DIMER, PRISCILA, CMP, GFR, ACETA ####Trang [address] [place], [place] [address] .urinalysis microscopic (ao) on 2017-05-03 UA Squam Epithelial 5-10 None Seen Abnormal 05-03-2017 [facility] (0000 0) Comment: Performed By: #### CBC, ADIF F, ANEU, TROP, DIMER, PRISCILA, CMP, GFR, ACETA ####Trang [address] [place], [place] [address] UA WBC None Seen None Seen Normal 05-03-2017 [facility]) ([id number]) Comment: Performed By: #### CBC, ADIF F, ANEU, TROP, DIMER, PRISCILA, CMP, GFR, ACETA ####Trang [address] [place], [place] [address] Urine, erythrocytes None Seen None Seen Normal 05-03-2017 [facility]) (0000 0) Comment: Performed By: #### CBC, ADIF F, ANEU, TROP, DIMER, PRISCILA, CMP, GFR, ACETA ####[address] [place], [place] [address] .neuabs on Neutrophil, Absolute 4.20 2.85-6.16 10 3/mcL Normal 7 [facility]) ([id number]) Comment: Performed By: #### CBC, ADIF F, ANEU, TROP, DIMER, RPISCILA, CMP, GFR, ACETA ####Trang [address] [place], [place] [address] .auto diff on 05-03 Basophils Auto #/vol 0.10 0.00-0.19 10 3/mcL Normal 7 [facility] ([facility]) ([id number]) Comment: Performed By: #### CBC, ADIF F, ANEU, TROP, DIMER, PRISCILA, CMP, GFR, ACETA ####[address]ang [address] [place], [place] [address] Basophils/100 WBC Auto (d) 1.4 0.0-2.5 % Normal 0 05-03-2017 [facility]) (0000 0) Comment: Performed By: #### CBC, ADIF F, ANEU, TROP, DIMER, PRISCILA, CMP, GFR, ACETA ####Trang[address] [place], [place] [address] Eosinophils 0.30 0.00-0.40 10 3/[facility] Normal 05-03-2017 [facility]) ([id number]) Comment: Performed By: #### CBC, ADIF F, ANEU, TROP, DIMER, PRISCILA, CMP, GFR, ACETA ####Trang [address] [place], [place] [address] Eosinophils/100 leukocytes 4.2 0.0-7.0 % Normal [facility] ([place]) (0000 0) Comment: Performed By: #### CBC, ADIF F, ANEU, TROP, DIMER, PRISCILA, CMP, GFR, ACETA ####[address] [place], [place] [address] Lymphocytes 2.40 0.77-3.85 10 3/[facility] Normal 05-03-2017 [facility] ([place]) ([id number]) Comment: Performed By: #### CBC, ADIF F, ANEU, TROP, DIMER, PRISCILA, CMP, GFR, ACETA ####Trang [address] [address] Lymphocytes/100 leukocytes 32.3 10.0-50.0 % Normal [facility] ([place]) (15469) Comment: Performed By: #### CBC, ADIF F, ANEU, TROP, DIMER, PRISCILA, CMP, GFR, ACETA ####Trang [address] [address] Monocytes 0.50 0.15-1.00 10 3/[facility] Normal 05-03-2017 [facility] ([place]) ([id number]) Comment: Performed By: #### CBC, ADIF F, ANEU, TROP, DIMER, PRISCILA, CMP, GFR, ACETA ####Trangelle [address] [place], [place] [address] Monocytes/100 leukocytes 6.0 1.7-13.0 % Normal 05-03 [facility] ([place]) (0000 0) Comment: Performed By: #### CBC, ADIF F, ANEU, TROP, DIMER, PRISCILA, CMP, GFR, ACETA ####Trang [address] [place], [place] [address] Neutrophils/100 WBC Auto 56.1 37.0-80.0 % Normal 05-03 [facility] ([place]) ([id number]) Comment: Performed By: #### CBC, ADIF F, ANEU, TROP, DIMER, PRISCILA, CMP, GFR, ACETA ####Trang [address] [place], [place] [address] Encounters Date Type Reason Provider Location 02-26-2020 - Emergency Pain in right elbow RIDDHI Thomas ALBERTODINORAH Ken watsonl Malcolm 02-26-2020 department patient RIDDHI Thomas ROME Nd morial visit [facility] (0000 0) TISH WINSTON UNKNOWN PROVIDER 01-21-2020 - Emergency Unspecified [facility] Elder carrillo 01-21-2020 department patient abdominal pain OLIVIER Thomas [facility] visit [facility] [place] ([id number]) YENI WINSTON UNKNOWN PROVIDER 08-28-2019 - Emergency Lower abdominal FAINA MD Frankie kidd 08-28-2019 department patient pain, unspecified [facility] PRISC A Memorial visit [facility] ([phone]) [facility] UN[facility] PROVIDER 08-23-2019 - Emergency FAINA MD Frankie Fowler 08-23-2019 department patient BALAJI-DREW EISENBERG [facility] orial visit [facility] ([phone]) FA[facility]EE [facility] UNKNOWN PROVIDER 05-03-2017 - Emergency ARPAN QUIÑONES Facility:B 05-03-2017 department patient KAYLEE WINSTON visit 04-17-2018 - Patient encounter Hematuria, KAYLEE Borges ty:TRANG 04-22-2018 unspecified KAYLEE MCCULLOUGH 11-01-2017 - Patient encounter KAYLEE Borges ty:B 11-02-2017 KAYLEE WINSTON Procedures Procedure Name Date Provider Location Urinalysis 01-21-2020 [facility] ([id number]) Comment: Result Comment: URINALYSIS Performed By: #### [id number] ## ## [facility],[address] [place] [id number] Urinalysis 08-23-2019 [facility] (15604) Comment: Result Comment: URINALYSIS Performed By: #### [id number] ## ## [facility],[address] [place] [id number] Payers Payer Name Policy Number Location PRIVATE PAY [facility] ([id number]) SELF PAY [facility] ([id number]) [id number] [facility] ([id number]) [id number] [facility] ([id number]) Summary Purpose Family History No Family History [...] BE BASED ON THE PRIMARY CLINICAL RECORDS. [facility] provides no warranty or guarantee of the accuracy or completeness of information in this document. UNRECOGNIZED CONTENT PROVIDED BELOW FOR UNRECOGNIZED SECTION INFORMATION SOURCE DATE CREATED AUTHOR AUTHOR'S ORGANIZATIO N 04/23/2018 [facility] ([place]) DATE CREATED AUTHOR AUTHOR'S ORGANIZATIO N 03/15/2020 [facility]
== END 2020-03-09 06:53 | disposition home or self-care (01) ==
PROVIDERS: Emergency Provider Emergency Medicine; PCP Family Medicine
DX: J45.901 Unspecified asthma with (acute) exacerbation (principal); F17.200 Nicotine dependence, unspecified, uncomplicated
CPT/HCPCS: 71045; 80053; 83605; 84484; 85025; 85379; 87040; 87633; 87635; 96374; 99284; U0003

== ENCOUNTER 2020-08-20 01:37 | Emergency (ER) | payer SELFPAY ==
[2020-08-20 01:38] VITALS: BP 141/82; PULSE 83; RESP 18; TEMP 36.7; O2SAT 99; BMI 35.9
--- NOTE | 2020-08-20 02:26 | ED.DCSUM_ITS ---
History of Present Illness Chief Complaint: GI Bleed Informant: Patient - Abdominal Pain/Flank Pain Onset: Days - 3 Context: Gradual Onset Timing: Continuous Quality: Aching, Cramping Location: Diffuse - worse lower abd, nonlateralizing Current Severity: Moderate Maximum Severity: Moderate Worsened by: Nothing Relieved by: Nothing - Nausea/Vomiting/Emesis GI Symptom: Nausea. Negative for: Vomiting - Diarrhea/Melena/Hematochezia GI Symptom: Diarrhea. Negative for: Melena Onset: Days - 2; better now, but now having BRBPR Associated Symptoms: Negative for: Dysuria, Frequency, Hematuria, Urgency Narrative: Patient states she started having crampy abdominal pain along with watery nonbloody diarrhea, now the stool is formed with bright red blood mixed with it. Cramping is worse and now instead of being periumbilical, it is more diffuse lower. She states she was at a different hospital, at [place], she had a work- up with a CT scan, they gave her morphine and discharged her home. She has had a prior oophorectomy. - Past Medical History (1) Asthma Status: Chronic Past Medical History - Allergies and Home Meds Allergies/Adverse Reactions: Allergies No Known Allergies Allergy (Verified 03/09/20 01:35) Primary Care Physician: Quentin Jasso MD [Primary Care Provider] - Smoking Status: Current every day smoker Review of Systems General: Denies: Chills, Fever, Sweats Eyes: Denies: Visual changes - bilaterally, Diplopia ENT: Denies: Rhinorrhea, Sore throat Cardiovascular: Denies: Chest pain, Palpitations Respiratory: Denies: Dyspnea, Cough, Dyspnea on exertion Gastrointestinal: Reports: Abdominal pain, Nausea, Diarrhea, Hematochezia. Denies: Vomiting, Melena Genitourinary: Denies: Dysuria, Hematuria, Frequency Musculoskeletal: Denies: Myalgias, Back pain, Extremity Pain Skin: Denies: Rash, Wounds Neurological: Denies: Headache, Weakness, Numbness Physical Exam Vital Signs/Narrative: Vital Signs Temp Pulse Resp BP Pulse Ox 08/20/20 01:38 98.1 F 83 18 141/82 H 99 Inital Vital Signs reviewed: Yes General: Well nourished, Well developed, No Acute Distress Head: Normocephalic, Atraumatic Eyes: Perrl, EOMI ENT: Moist mucous membranes, No rhinorrhea Neck: Supple, Nontender Cardiovascular: Regular rate, Regular rhythm, No murmurs Respiratory: No distress, CTA bilaterally, Chest nontender Abdomen: Soft, Nondistended, Normal bowel sounds, Tender - Diffusely across lower abdomen only. Nontender throughout upper abdomen.. Negative for: Guarding, Rebound tenderness, Pulsatile mass Back: Nontender, Normal Inspection. Negative for: CVA tenderness Extremities: Nontender, No edema Skin: Normal color, No rash Neurological: Alert, Oriented x3, Cranial nerves II-XII grossly intact, Normal Strength, Normal Sensation Psychological: Normal affect, Normal Mood Diagnostic/Tx/Re-eval Laboratory Tests 08/20/20 08/20/20 08/20/20 Range/Units 03:25 02:25 02:25 WBC 13.0 H (4.4-11.0) K/mm3 RBC 4.32 (4.2-5.4) M/mm3 Hgb 14.0 (12.0-15.0) g/dL Hct 42.7 (37-47) % MCV 98.8 (81-99) fL MCH 32.4 H (27.0-32.0) pg MCHC 32.8 (32-36) g/dL RDW Std Deviation 44.5 H (35.1-43.9) fl RDW Coeff of Dorota 12.2 (11.6-14.6) % Plt Count 316 (150-450) K/mm3 MPV 10.7 (6.2-12.0) fl Immature Gran % (Auto) 0.400 (0.0-0.9) % Neut % (Auto) 65.1 (47-70) % Lymph % (Auto) 24.1 (19-41) % [place] % (Auto) 6.1 (0-10) % Eos % (Auto) 3.8 (0-5) % Baso % (Auto) 0.5 (0-1) % Absolute Neuts (auto) 8.5 H (2.0-7.7) X10^3/uL Absolute Lymphs (auto) 3.12 (0.83-4.51) X10^3/uL Nucleated RBC % 0 (0-5) % Sodium 141 (136-145) mmol/L Potassium 3.5 (3.5-5.1) mmol/L Chloride 108 H (98-107) mmol/L Carbon Dioxide 28.0 (21.0-32.0) mmol/L Anion Gap 5 (5-15) BUN 12 (7-18) mg/dL Creatinine 0.66 (0.55-1.02) mg/dL Estim Creat Clear Calc 102.47 ml/min Est GFR (MDRD) Af Amer 123 (>60) mL/min Est GFR (MDRD) Non-Af 101 (>60) mL/min BUN/Creatinine Ratio 18.1 (10-20) RATIO Glucose 101 (74-106) mg/dL Calcium 8.7 (8.5-10.1) mg/dL Total Bilirubin 0.20 (0.20-1.00) mg/dL AST 9 L (15-37) U/L ALT 27 (13-56) U/L Alkaline Phosphatase 125 H (45-117) U/L Total Protein 6.6 (6.4-8.2) g/dL Albumin 3.2 (3.2-5.0) g/dL Globulin 3.4 (2.2-4.2) g/dL Albumin/Globulin Ratio 0.9 (0.9-2.4) RATIO Lipase 84 (73-393) U/L Urine Color Yellow (Yellow) Urine Clarity Clear (Clear) Urine pH 6.0 (5.0 - 8.0) Ur Specific Merrill 1.020 (1.002-1.030) Urine Protein 15 H (Negative) mg/dl Urine Glucose (UA) Normal (Normal) mg/dl Urine Ketones Negative (Negative) mg/dl Urine Occult Blood 10 H (Negative) /ul Urine Nitrite Negative (Negative) Urine Bilirubin Negative (Negative) mg/dL Urine Urobilinogen Normal (Normal) mg/dl Ur Leukocyte Esterase 25 H (Negative) /ul Urine RBC 0-5 SEEN (0-5) /hpf Urine WBC 0-5 SEEN (0-5) /hpf Ur Squamous Epith Cells 0-5 SEEN (5-10) /hpf Ur Transition Epith Cell 0-5 SEEN (0-5) /hpf Urine Bacteria 1+ (None Seen) /hpf Urine Mucus 1+ (<or=2+) /hpf - Medical Decision Making I was able to obtain some old records from yesterday at [facility]. I do not have the ER note, but I do have the testing that was performed, labs with similar results large, white blood count was in the 11 range, CT shows diverticulosis but no diverticulitis or other acute abnormality. An ultrasound of the pelvis was performed as well, which was unremarkable. I treated her here with IV fluids, Reglan, Bentyl, Toradol. She had improvement in her symptoms. In discussing her symptoms further, she had diarrhea that started with this, but that resolved and now she had a normal formed stool with blood around it 1 time as well as some dark clots. This suggests bleeding that is not active or severe, and during her 2-1/2-hour stay in the ER she had no further episodes of bleeding. Her blood counts are stable and her vital signs are normal. I discussed with her the limitations of the emergency department and our ability to give her answers for this. Differential includes internal hemorrhoids, she does not have any palpable subjective external hemorrhoids, as well as bleeding diverticulosis which I think is less likely, however if the bleeding becomes more severe she should return to the emergency department. For now I think it is reasonable to have her follow-up with her doctor and surgery for possible colonoscopy/sigmoidoscopy, and treat her empirically for internal hemorrhoids with Proctofoam in addition to symptomatic treatment. She understands this and is comfortable with that plan. ED Disposition - Plan for ED Patient: Disposition: Home or Assisted Living Diagnosis: Lower abdominal pain, Hematochezia Instructions: ED Hematochezia Stable Prescriptions: Dicyclomine HCl [Bentyl] 20 mg PO Q6H PRN #20 cap PRN Reason: abdominal pain Transmission Status: Pending to [id number] Hydrocortisone/Pramoxine [Proctofoam-Hc Foam] 10 gm RC BID 7 Days #1 foam Transmission Status: Pending to [id number] Metoclopramide [Reglan] 10 mg PO Q6H PRN #12 tab PRN Reason: Nausea Transmission Status: Pending to [id number] Referrals: Quentin Jasso MD [Primary Care Provider] - 3-5 Days Tejal Arreola MD [STAFF PHYSICIAN] - (for further evaluation and possible scope)
[2020-08-20 02:38] LABS: Absolute Lymphocyte Count 3.12 X10^3/uL (0.83-4.51); Absolute Neutrophil Count 8.5 X10^3/uL (2.0-7.7); Basophil# 0.06 X10^3/uL; Basophil% 0.5 % (0-1); Eosinophil# 0.49 X10^3/uL; Eosinophils% 3.8 % (0-5); Hematocrit 42.7 % (37-47); Lymphocyte # 3.12 X10^3/ul (4.0); Lymphocyte % 24.1 % (19-41); Mean Corp Hgb Conc 32.8 g/dL (32-36); Mean Corpuscular Hgb 32.4 pg (27.0-32.0); Mean Corpuscular Volume 98.8 fL (81-99); Mean Platelet Vol. 10.7 fl (6.2-12.0); Monocyte# 0.79 X10^3/uL; Monocyte% 6.1 % (0-10); NRBC Flagged by Analyzer 0 % (0-5); Neutrophil # 8.45 X10^3/uL (2.7-7.7); Neutrophil % 65.1 % (47-70); Platelet Count 316 K/mm3 (150-450); RBC Distribution Width CV 12.2 % (11.6-14.6); RBC Distribution Width SD 44.5 fl (35.1-43.9); Red Blood Count 4.32 M/mm3 (4.2-5.4)
[2020-08-20] MEDS: Metoclopramide 10 MG/2 ML Vial 5 MG IV (02:39)
[2020-08-20] MEDS: Ketorolac 30 MG/ML Syringe IV (02:39)
[2020-08-20] MEDS: Dicyclomine 20 MG/2 ML Vial IM (02:39)
[2020-08-20] MEDS: 0.9% Normal Saline 1,000 ML 1000 ML IV (02:39)
[2020-08-20 02:51] LABS: ALB/GLOB Ratio 0.9 RATIO (0.9-2.4); AST(SGOT) 9 U/L (15-37); Alanine Aminotransfer ALT/SGPT 27 U/L (13-56); Albumin, Serum 3.2 g/dL (3.2-5.0); Alkaline Phosphatase 125 U/L (45-117); Anion Gap 5 (5-15); BUN 12 mg/dL (7-18); BUN/Creat Ratio 18.1 RATIO (10-20); Calcium,Total 8.7 mg/dL (8.5-10.1); Chloride 108 mmol/L (98-107); Creatinine, Serum 0.66 mg/dL (0.55-1.02); EST Glomerular Filtration Rate 101 mL/min (>60); Est Glom Filt Rate - Afr Amer 123 mL/min (>60); Estimated Creatinine Clearance 102.47 ml/min; Globulin 3.4 g/dL (2.2-4.2); Glucose 101 mg/dL (74-106); Lipase 84 U/L (73-393); Potassium 3.5 mmol/L (3.5-5.1); Protein, Total 6.6 g/dL (6.4-8.2); Sodium Level 141 mmol/L (136-145)
[2020-08-20 03:37] LABS: Color, Urine Yellow (Yellow); Glucose, Dipstick Normal (Normal); Ketone-Dipstick Negative (Negative); Leukocyte Esterase-Dipstick 25 /ul (Negative); Nitrite-Dipstick Negative (Negative); Occult Blood-Urine 10 /ul (Negative); Protein-Dipstick 15 mg/dl (Negative); Urine Bilirubin Dipstick Negative (Negative); Urine Clarity Clear (Clear); Urine Urobilinogen Normal (Normal)
[2020-08-20 03:47] LABS: Squamous Epithelial Cells - UA 0-5 SEEN /hpf (5-10); White Blood Cells 0-5 SEEN /hpf (0-5)
[2020-08-20 03:48] LABS: Bacteria 1+ /hpf (None Seen); Mucous, Urine 1+ /hpf (<or=2+); Red Blood Cells-Urine 0-5 SEEN /hpf (0-5)
[2020-08-20 03:49] LABS: Transitional Epithelial - Ur 0-5 SEEN /hpf (0-5)
[2020-08-20 03:54] VITALS: RESP 16
[2020-08-20 04:17] VITALS: BP 132/72; PULSE 80; RESP 16; O2SAT 99
== END 2020-08-20 04:18 | disposition home or self-care (01) ==
PROVIDERS: Emergency Provider Emergency Medicine; PCP Family Medicine
DX: K92.1 Melena (principal); R10.30 Lower abdominal pain, unspecified; J45.909 Unspecified asthma, uncomplicated; F17.200 Nicotine dependence, unspecified, uncomplicated
CPT/HCPCS: 80053; 81001; 83690; 85025; 96361; 96372; 96374; 96375; 99283; J7030; A4216

== ENCOUNTER → 2023-12-26 | Outpatient (CLI) | payer MEDICAID, SELFPAY ==
--- NOTE | 2023-12-26 13:15 | MRI_ITS ---
STUDY: MRI LEFT SHOULDER REASON FOR EXAM: Female, 52 years old. pain, injury while wrestling, rule out cuff tear TECHNIQUE: Standardized fat and water weighted pulse sequences were obtained in all 3 orthogonal planes. COMPARISON: X-ray of the left shoulder dated December 08, 2023 FINDINGS: There is high-grade partial tearing at the far lateral insertion of the supraspinatus tendon with a large undersurface component measuring 1.26 cm in diameter. No full thickness tearing or retraction is demonstrated on the current study. The tear extends into the rotator interval and junction with the superior lateral fibers of the subscapularis tendon which also demonstrates mild partial tearing and tendinosis. A small anterior subdeltoid bursal effusion is present. Normal infraspinatus tendon. Normal teres minor tendon. Normal supraspinatus muscle. Normal infraspinatus muscle. Normal subscapularis muscle. Normal teres minor muscle. Normal glenohumeral articulation. Normal humeral head and visualized proximal humerus. Normal biceps labral complex. Normal intracapsular long biceps tendon. There is labral degeneration with areas of fraying, but there is no demonstrated discrete labral tear. Normal capsulo- ligamentous complex. Normal rotator interval. Normal acromioclavicular articulation. There is a Type II morphology (curved), with a neutral orientation. There is minimal fluid distention of the subacromial bursa, consistent with mild subacromial-subdeltoid bursitis. Normal visualized coracohumeral and coracoacromial ligaments. Normal quadrilateral space. Normal axillary space. Normal deltoid muscle. Normal trapezius muscle. MRI/Upper Ext Joint Only(Routine) IMPRESSION: 1. High-grade partial tearing at the far lateral insertion of the supraspinatus tendon with a large undersurface component measuring 1.26 cm in diameter. No full thickness tearing or retraction is demonstrated on the current study. The tear extends into the rotator interval and junction with the superior lateral fibers of the subscapularis tendon which also demonstrates mild partial tearing and tendinosis. 2. Diffuse fraying of the glenoid labrum. Electronically Signed: Mynor Peraza MD at 14:49 EDT ,
== END | disposition home or self-care (01) ==
PROVIDERS: PCP Family Medicine; Referring Provider Orthopaedic Surgery Sports Medicine; Visit Provider Orthopaedic Surgery Sports Medicine
DX: M25.512 Pain in left shoulder (principal)
CPT/HCPCS: 73221